=== PATIENT | female | born 1975 ===

== ENCOUNTER → 2020-02-26 12:18 | Outpatient (BNVA) | payer MEDICAID, SELFPAY | PROVIDERS: PCP Pediatrics; Visit Provider Surgery | DX: E66.01 Morbid (severe) obesity due to excess calories (principal); Z68.41 Body mass index [BMI] 40.0-44.9, adult | CPT/HCPCS: 99212 ==

== ENCOUNTER → 2020-03-18 13:28 | Outpatient (BNVA) | payer MEDICAID, SELFPAY | PROVIDERS: PCP Physician Assistant; Visit Provider Surgery | DX: E66.01 Morbid (severe) obesity due to excess calories (principal); Z68.41 Body mass index [BMI] 40.0-44.9, adult | CPT/HCPCS: 99212 ==

== ENCOUNTER → 2020-04-11 15:32 | Outpatient (BNVA) | payer MEDICAID, SELFPAY | PROVIDERS: PCP Physician Assistant; Visit Provider Surgery | DX: E66.01 Morbid (severe) obesity due to excess calories (principal); Z68.41 Body mass index [BMI] 40.0-44.9, adult | CPT/HCPCS: 99212 ==

== ENCOUNTER → 2020-05-17 13:53 | Outpatient (BNVA) | payer MEDICAID, SELFPAY | PROVIDERS: PCP Physician Assistant; Visit Provider Surgery | DX: E66.01 Morbid (severe) obesity due to excess calories (principal); Z68.41 Body mass index [BMI] 40.0-44.9, adult | CPT/HCPCS: 99212 ==

== ENCOUNTER → 2020-05-23 13:31 | Outpatient (BNVA) | payer MEDICAID, SELFPAY | PROVIDERS: PCP Physician Assistant; Visit Provider Dietitian, Registered | DX: E66.01 Morbid (severe) obesity due to excess calories (principal) | CPT/HCPCS: 97803 ==

== ENCOUNTER 2020-05-26 12:11 | Outpatient (REF) | payer MEDICAID, SELFPAY ==
[2020-05-26 13:17] LABS: MANUAL DIFF FLAG NO
[2020-05-26 13:24] LABS: Basophils Percent Auto 0.3 % (0-2); Eosinophils Absolute Auto 0.1 X10*3/uL (0.0-0.4); Eosinophils Percent Auto 0.9 % (0-4); Hematocrit 40.7 % (37-47); Imm Gran Abs Auto 0.02 X10*3/uL (0.00-0.03); Imm Gran Pct Auto 0.3 % (0.0-0.4); Lymphocytes Absolute Auto 1.5 X10*3/uL (1.2-4.9); Lymphocytes Percent Auto 22.3 % (20-40); Mean Corpuscular HGB Conc 31.9 g/dl (31.0-35.0); Mean Corpuscular Hemoglobin 26.4 pg (27.0-33.0); Mean Corpuscular Volume 82.6 fL (80-98); Mean Platelet Volume 10.3 fL (9.4-12.3); Monocytes Absolute Auto 0.4 X10*3/uL (0.1-1.2); Monocytes Percent Auto 6.6 % (2-11); Neutrophils Absolute Auto 4.5 X10*3/uL (2.0-8.3); Neutrophils Percent Auto 69.6 % (45-73); Platelet Count 341 X10*3/uL (160-400); Red Blood Count 4.93 X10*6/uL (4.20-5.50); Red Cell Distribution Width 14.2 % (11.0-16.0); White Blood Count 6.5 X10*3/uL (4.8-10.8)
[2020-05-26 13:37] LABS: Alanine Aminotransferase 29 U/L (0-31); Albumin Level 3.9 g/dL (3.5-5.0); Alkaline Phosphatase 81 U/L (39-117); Anion Gap 12 (12-20); Aspartate Amino Transferase 20 U/L (5-31); Bilirubin Total 0.3 mg/dL (0.0-1.0); Blood Urea Nitrogen 9 mg/dL (9-16); Calcium 8.8 mg/dL (8.4-10.2); Carbon Dioxide 26 mmol/L (22-29); Chloride 105 mmol/L (96-108); Cholesterol 121 mg/dL; Estimated Average Glucose 100 mg/dL; Estimated Glomerular Filt Rate > 60; Glucose Fasting 105 mg/dL (60-99); HDL Cholesterol 41 mg/dL; Hemoglobin A1c % 5.1 %; Iron 41 mcg/dL (30-160); LDL Cholesterol Calculated 71 mg/dl; Percent Iron Saturation 11 % (15-50); Sodium 139 mmol/L (135-145); Total Iron Binding Capacity 366 mcg/dL (228-428); Total Protein 7.2 g/dL (6.5-8.0); Triglycerides 49 mg/dL; Unsaturated Iron Binding 325 ug/dL
[2020-05-26 14:00] LABS: Thyroid Stimulating Hormone 0.28 uIU/mL (0.32-4.0); Vitamin D 25-OH Total 20.8 ng/mL (>30)
[2020-05-26 14:05] LABS: Vitamin B12 682 pg/mL (200-900)
[2020-05-27 12:46] LABS: Calcium (PTHI) 8.7 mg/dL (8.6-10.2); PTHI 65 pg/mL (14-64)
[2020-05-30 17:01] LABS: Zinc 72 mcg/dL (60-130)
[2020-05-31 10:32] LABS: Vitamin A 38 mcg/dL (38-98)
[2020-06-01 17:22] LABS: Vitamin B1 <6 nmol/L (8-30)
== END 2020-05-26 12:12 | disposition home or self-care (01) ==
LOC: HO.LAB 12:11
PROVIDERS: PCP Physician Assistant; Visit Provider Surgery
DX: K91.2 Postsurgical malabsorption, not elsewhere classified (principal); Z90.3 Acquired absence of stomach [part of]
CPT/HCPCS: 36415; 80053; 80061; 82306; 82607; 83036; 83540; 83970; 84425; 84443; 84590; 84630; 85025; 86140

== ENCOUNTER 2020-06-21 11:38 | Outpatient (REF) | payer MEDICAID, SELFPAY ==
--- NOTE | ~2020-06-21 | MM_ITS ---
EXAMINATION: MM SCREENING DIGITAL BREAST TOMOSYNTHESIS, BILATERAL CLINICAL INFORMATION: Screening. Asymptomatic. Prior history reduction mammoplasty 2005. The lifetime risk of breast cancer based on the Tyrer-Cuzick Model is 10%. COMPARISON: Mammography: 04/22/2019, 04/18/2018, 06/30/2015 TECHNIQUE: Digital breast tomosynthesis is performed in both the craniocaudal and mediolateral oblique views along with computer-aided detection (CAD). Synthesized 2D images are generated from the tomosynthesis. FINDINGS: There are scattered areas of fibroglandular density (ACR BI-RADS breast composition Category b). Parenchymal pattern is similar to prior exams. There is minor scarring and shifting fibroglandular tissue related to positioning, similar to prior studies. No developing density or interval mass or architectural abnormality. There are scattered benign predominantly anterior round and dermal calcifications again seen. No significant changes from prior studies. MM/MM tomosynthesis screening BI IMPRESSION: No significant changes from prior exams. ASSESSMENT: BI-RADS 2: Benign RECOMMENDATION: Routine annual mammography screening. This patient's information was entered into a reminder system with a target due date for their next mammogram.
== END 2020-06-21 11:39 | disposition home or self-care (01) ==
LOC: HO.MAMMO 11:38
PROVIDERS: Visit Provider Physician Assistant
DX: Z12.31 Encounter for screening mammogram for malignant neoplasm of breast (principal)
CPT/HCPCS: 77063; 77067

== ENCOUNTER → 2020-06-23 14:27 | Outpatient (BNVA) | payer MEDICAID, SELFPAY | PROVIDERS: PCP Physician Assistant; Visit Provider Physician Assistant ==

== ENCOUNTER → 2020-06-24 13:37 | Outpatient (BNVA) | payer MEDICAID, SELFPAY | PROVIDERS: PCP Physician Assistant; Visit Provider Physician Assistant ==

== ENCOUNTER → 2020-06-28 10:20 | Outpatient (BNVA) | payer MEDICAID, SELFPAY | PROVIDERS: PCP Physician Assistant; Visit Provider Surgery | DX: E66.01 Morbid (severe) obesity due to excess calories (principal) | CPT/HCPCS: 99212 ==

== ENCOUNTER 2020-07-06 09:25 | Inpatient (IN) | payer MEDICAID, SELFPAY ==
--- NOTE | 2020-06-28 11:30 | ECG_ITS ---
Test Reason : R06.02 - Shortness of breath Blood Pressure : / mmHG Vent. Rate : 070 BPM Atrial Rate : 070 BPM P-R Int : 116 ms QRS Dur : 074 ms QT Int : 388 ms P-R-T Axes : 023 054 028 degrees QTc Int : 419 ms Normal sinus rhythm Normal ECG When compared with ECG of 13-JUL-2019 17:45, No significant change was found Referred By: Linda Mitchell Electronically Signed By:KRISTIE DALY MD
[2020-06-28 12:12] LABS: MANUAL DIFF FLAG NO
[2020-06-28 12:15] LABS: Basophils Percent Auto 0.5 % (0-2); Eosinophils Absolute Auto 0.1 X10*3/uL (0.0-0.4); Eosinophils Percent Auto 0.9 % (0-4); Hematocrit 41.8 % (37-47); Hemoglobin 13.4 g/dl (12.0-16.0); Imm Gran Abs Auto 0.02 X10*3/uL (0.00-0.03); Imm Gran Pct Auto 0.3 % (0.0-0.4); Lymphocytes Absolute Auto 1.5 X10*3/uL (1.2-4.9); Lymphocytes Percent Auto 19.9 % (20-40); Mean Corpuscular HGB Conc 32.1 g/dl (31.0-35.0); Mean Corpuscular Volume 81.2 fL (80-98); Mean Platelet Volume 10.3 fL (9.4-12.3); Monocytes Absolute Auto 0.5 X10*3/uL (0.1-1.2); Monocytes Percent Auto 7.1 % (2-11); Neutrophils Absolute Auto 5.4 X10*3/uL (2.0-8.3); Neutrophils Percent Auto 71.3 % (45-73); Platelet Count 345 X10*3/uL (160-400); Red Blood Count 5.15 X10*6/uL (4.20-5.50); Red Cell Distribution Width 14.7 % (11.0-16.0); White Blood Count 7.6 X10*3/uL (4.8-10.8)
[2020-06-28 12:21] LABS: INTERNATIONAL NORM RATIO 0.9 (0.9-1.1); Prothrombin Time 11.1 SEC (10.8-13.0)
[2020-06-28 12:23] LABS: Partial Thromboplastin Time 34.1 SEC (24.1-38.0)
[2020-06-28 12:37] LABS: Anion Gap 13 (12-20); Blood Urea Nitrogen 11 mg/dL (9-16); Carbon Dioxide 26 mmol/L (22-29); Chloride 104 mmol/L (96-108); Estimated Glomerular Filt Rate > 60; Glucose Random 97 mg/dL (60-115); Potassium 4.2 mmol/L (3.3-5.1); Sodium 139 mmol/L (135-145)
[2020-06-28 12:59] LABS: Vitamin D 25-OH Total 45.9 ng/mL (>30)
[2020-06-29 10:44] VITALS: BMI 42.0
[2020-07-03 11:56] LABS: Vitamin B1 43 nmol/L (8-30)
--- NOTE | 2020-07-05 09:20 | HO.ANESPROP2 ---
Documented by User: Darcy Miles 07/05/20 09:21 HPI - Anesthesia Eval Consult details Narrative: 45yo F for Gastrectomy Sleeve PMFSH Active Problems Active Problems: All Active Problems (Updated 06/28/20 @ 10:49 by Linda Mitchell MD) Morbid obesity due to excess calories (Acute) Body mass index (BMI) of 40.1 to 44.9 in adult (Acute) Preoperative examination (Acute) Vitamin D deficiency (Acute) Vitamin B1 deficiency (Acute) Shortness of breath (Acute) Past Medical History Medical History Anxiety Arthritis Back pain Binge eating disorder KENISHA I (cervical intraepithelial neoplasia I) Depression Insomnia Migraines Ovarian cyst Scoliosis Family History Family History Father Colon cancer Mother No problems noted. Brother Obesity Brother Obesity Son No problems noted. Daughter No problems noted. Daughter No problems noted. Surgical History Surgical History History of arthroscopy of both knees History of cervical LEEP biopsy affecting care of mother, antepartum Hx of breast reduction, elective Hx of tubal ligation Social History Social History Household Members: Family Housing: Apartment Are you a primary manager progressive care to a significant other at home: No Do you presently have visiting nurse or other home services: No Use of substances other than those prescribed or required for medical reasons: No Have you been hit, kicked, punched, or otherwise hurt by someone within the past year? If so, by whom?: No Are you DNR?: No Advance Directives: No Advance Directives Information Provided: No Recently lost weight without trying: No Eating poorly because of decreased appetite: No Nutrition Risks: No Nutritional Risk Patient : No FDLMP: 06/27/20 : No Poor oral hygiene: No Meds Allergies Allergy/AdvReac Type Severity Reaction Status Date / Time No Known Allergies Allergy Verified 07/06/20 09:12 Home Medications Medication Instructions Recorded Confirmed Last Taken Type iron, carbonyl 15 mg chewable 15 mg PO DAILY 01/28/20 06/29/20 Unknown History tablet meloxicam 15 mg tablet 15 mg PO DAILY PRN 01/28/20 06/29/20 Unknown History sertraline 100 mg tablet 100 mg PO DAILY 01/28/20 06/29/20 Unknown History mecobalamin (vitamin B12) 1,000 1,000 mcg PO DAILY 03/18/20 06/29/20 Unknown History mcg chewable tablet quetiapine 25 mg tablet 25 mg PO DAILY 05/17/20 06/29/20 Unknown History Exam Exam Date and Time: July 05, 2020 0920 Height,Weight and Vital Signs: Height 5 ft 10 in Weight 132.903 kg Pertinent Lab Results Pertinent Lab Results: Laboratory Tests 06/28/20 06/28/20 06/28/20 11:35 11:37 11:37 WBC 7.6 RBC 5.15 Hgb 13.4 Hct 41.8 MCV 81.2 MCH 26.0 L MCHC 32.1 RDW 14.7 Plt Count 345 MPV 10.3 Immature Gran % (Auto) 0.3 Neut % (Auto) 71.3 Lymph % (Auto) 19.9 L [place] % (Auto) 7.1 Eos % (Auto) 0.9 Baso % (Auto) 0.5 Lymph # (Auto) 1.5 [place] # (Auto) 0.5 Eos # (Auto) 0.1 Baso # (Auto) 0.0 Abs Immat Gran (auto) 0.02 Absolute Neuts (auto) 5.4 Absolute Nucleated RBC 0.000 Nucleated RBC % (auto) 0.0 PT 11.1 INR 0.9 APTT 34.1 Sodium Potassium Chloride Carbon Dioxide Anion Gap BUN Creatinine Estim Creat Clear Calc Estimated GFR Random Glucose Calcium Albumin Vitamin B1 43 H 25-OH Vitamin D Total Urine Color Urine Appearance Urine pH Ur Specific [place] Urine Protein Urine Glucose (UA) Urine Ketones Urine Blood Urine Nitrite Ur Leukocyte Esterase Urine Test Blood Type Antibody Screen 06/28/20 06/28/20 06/28/20 11:37 11:37 Unknown WBC RBC Hgb Hct MCV MCH MCHC RDW Plt Count MPV Immature Gran % (Auto) Neut % (Auto) Lymph % (Auto) [place] % (Auto) Eos % (Auto) Baso % (Auto) Lymph # (Auto) [place] # (Auto) Eos # (Auto) Baso # (Auto) Abs Immat Gran (auto) Absolute Neuts (auto) Absolute Nucleated RBC Nucleated RBC % (auto) PT INR APTT Sodium 139 Potassium 4.2 Chloride 104 Carbon Dioxide 26 Anion Gap 13 BUN 11 Creatinine 0.66 Estim Creat Clear Calc TNP Estimated GFR > 60 Random Glucose 97 Calcium 9.0 Albumin 4.0 Vitamin B1 25-OH Vitamin D Total 45.9 Urine Color Cancelled Urine Appearance Cancelled Urine pH Cancelled Ur Specific [place] Cancelled Urine Protein Cancelled Urine Glucose (UA) Cancelled Urine Ketones Cancelled Urine Blood Cancelled Urine Nitrite Cancelled Ur Leukocyte Esterase Cancelled Urine Test Blood Type O Positive Antibody Screen NEGATIVE 06/28/20 Unknown WBC RBC Hgb Hct MCV MCH MCHC RDW Plt Count MPV Immature Gran % (Auto) Neut % (Auto) Lymph % (Auto) [place] % (Auto) Eos % (Auto) Baso % (Auto) Lymph # (Auto) [place] # (Auto) Eos # (Auto) Baso # (Auto) Abs Immat Gran (auto) Absolute Neuts (auto) Absolute Nucleated RBC Nucleated RBC % (auto) PT INR APTT Sodium Potassium Chloride Carbon Dioxide Anion Gap BUN Creatinine Estim Creat Clear Calc Estimated GFR Random Glucose Calcium Albumin Vitamin B1 25-OH Vitamin D Total Urine Color Urine Appearance Urine pH Ur Specific [place] Urine Protein Urine Glucose (UA) Urine Ketones Urine Blood Urine Nitrite Ur Leukocyte Esterase Urine Test Cancelled Blood Type Antibody Screen Narrative Narrative: EKG 06/2020 Vent. Rate : 070 BPM Atrial Rate : 070 BPM P-R Int : 116 ms QRS Dur : 074 ms QT Int : 388 ms P-R-T Axes : 023 054 028 degrees QTc Int : 419 ms Normal sinus rhythm Normal ECG When compared with ECG of 13-JUL-2019 17:45, No significant change was found Assessment and Plan Assessment Anesthesia Assessment: Chart Reviewed Documented by User: Isaiah Weinstein 07/06/20 10:22 [facility] Past Medical History Medical History Anxiety Arthritis Back pain Binge eating disorder KENISHA I (cervical intraepithelial neoplasia I) Depression Insomnia Migraines Ovarian cyst Scoliosis Family History Family History Father Colon cancer Mother No problems noted. Brother Obesity Brother Obesity Son No problems noted. Daughter No problems noted. Daughter No problems noted. Surgical History Surgical History History of arthroscopy of both knees History of cervical LEEP biopsy affecting care of mother, antepartum Hx of breast reduction, elective Hx of tubal ligation Social History Social History Household Members: Family Housing: Apartment Are you a primary manager progressive care to a significant other at home: No Do you presently have visiting nurse or other home services: No Use of substances other than those prescribed or required for medical reasons: No Have you been hit, kicked, punched, or otherwise hurt by someone within the past year? If so, by whom?: No Are you DNR?: No Advance Directives: No Advance Directives Information Provided: No Recently lost weight without trying: No Eating poorly because of decreased appetite: No Nutrition Risks: No Nutritional Risk Patient : No FDLMP: 06/27/20 : No Poor oral hygiene: No Meds Allergies Allergy/AdvReac Type Severity Reaction Status Date / Time No Known Allergies Allergy Verified 07/06/20 09:12 Home Medications Medication Instructions Recorded Confirmed Last Taken Type iron, carbonyl 15 mg chewable 15 mg PO DAILY 01/28/20 06/29/20 Unknown History tablet meloxicam 15 mg tablet 15 mg PO DAILY PRN 01/28/20 06/29/20 Unknown History sertraline 100 mg tablet 100 mg PO DAILY 01/28/20 06/29/20 Unknown History mecobalamin (vitamin B12) 1,000 1,000 mcg PO DAILY 03/18/20 06/29/20 Unknown History mcg chewable tablet quetiapine 25 mg tablet 25 mg PO DAILY 05/17/20 06/29/20 Unknown History Exam Airway Mallampati Class: III TM Dist: >3cm Neck ROM: Full
--- NOTE | 2020-07-05 11:14 | MHC.SHP ---
Pre-Procedural Eval Section B Chief Complaint: obesity Allergies: Allergies Allergy/AdvReac Type Severity Reaction Status Date / Time No Known Allergies Allergy Verified 06/29/20 09:31 Plan I have reviewed the history and physical and performed a pertinent physical examination on my patient. No changes have occurred unless specified.
[2020-07-06] VITALS (11 sets, daily range): BP systolic 132–170; BP diastolic 71–96; PULSE 59–72; RESP 14–20; TEMP 35.9–36.3; O2SAT 92–98
[2020-07-06] MEDS: Lactated Ringers 1,000 ML 100 ML IVCONT (09:38)
[2020-07-06 09:40] LABS: COVID-19 Test Negative (Negative)
--- NOTE | 2020-07-06 11:36 | PC.NURSE ---
pt received personal call while in preop. has uti and an rn [facility] called to tell her and send rx for bactrim to her pharmacy. nacho made aware and ok'd to proceed.
[2020-07-06] MEDS: ondansetron HCL 4 MG/2 ML VIAL IVPUSH ×2 (14:14→23:18)
--- NOTE | 2020-07-06 14:19 | PM.OP ---
Brief Operative Note Date of Service: 07/06/20 Pre-op diagnosis: Morbid obesity BMI 42.4 Post-op diagnosis: other (Same and hiatal hernia) Procedure: Laparoscopic sleeve gastrectomy, hiatal hernia repair, intraoperative endoscopy, and Betty block Implants: Small laparoscopic clips on the staple line Surgeon: Linda Mitchell MD Anesthesia: GETA Was an Bead Preparer used for this Procedure?: Yes Bead Preparer: Noemí Mejia Estimated blood loss (mL): 10 Pathology: other (Partial gastrectomy) Condition: stable Disposition: PACU
--- NOTE | 2020-07-06 14:21 | P.OP_ITS ---
Operative Note Operative Note Date of Service: 07/06/20 Narrative: Patient was brought into the operating room and placed on the operating room table in the supine position. General anesthesia was induced. Normal DVT prophylaxis was instituted and the patient received 2 grams of cefotetan preoperatively. The abdomen was then prepped and draped in the normal sterile fashion. A safety time-out was performed. A mixture of 1% lidocaine with epinephrine and ?% Marcaine plain was used to an esthetize the planned incision site in the left upper quadrant. A #11 scalpel was used to make a 5 mm left upper quadrant transverse incision through which a veress needle was placed. Three pops were heard going through the fascia. A saline drop test was used to confirm that the veress needle was intraabdominal. An optiview technique was then used to place a 5mm port in the left upper quadrant. A 5 mm 30 degree laproscope was then placed through this port and the abdominal cavity was surveyed and was normal. The patient was placed in reverse Trendelenburg positioning. A peña liver retractor was then placed in the subxyphoid position and it was used to hold up the left lobe of the liver to the abdominal wall. This was secured to the bed using the liver retractor card. A SHU block was then performed for pain control on the right side of the abdomen. A 5 mm port was placed in the right upper quadrant near the falciform ligament. A 12 mm port was then placed in the mid epigastrium. One additional 5 mm port was placed in the left upper quadrant just to the left of the placement of the first port. I then performed a SHU block on the left side of the abdomen. I then removed the epigastric fat pad; there was a small anterior hiatal hernia noted. I reapproximated the left and right crura with a total of 2 stitches of 2-0 ethibond and a laparoscopic knot pusher. There was no residual hiatal hernia. I then opened up the angle of His. We then gained entry into the lesser sac about 4-5 cm from the pylorus. I had anesthesia place a 34 Indonesian orogastric tube into the distal antrum to use as a sizing tool for gastric pouch size. I divided the short gastric vessels up to the angle of His. We then started the creation of the gastric pouch by firing a 60 mm purple load endostapler up the stomach about 4-5 cm from the pylorus. We completed the creation of the gastric pouch using a total of 4 firings of a 60 mm and 1 firing of a 45 mm purple load stapler. I did place some small clips on the staple line to ensure hemostasis. We had anesthesia remove the orogastric tube, then we clamped across the distal antrum using a fired 60 mm endostapler. We flattened the patient and then instilled normal saline surrounding the newly created staple line. I then performed an on-table endoscopy. I passed the gastroscopy into the posterior oropharynx and down the esophagus evaluating the esophageal mucosa which was normal. There was no evidence of hiatal hernia. I passed the gastroscope into the gastric pouch and insufflated the gastric pouch. There was healthy pink mucosa and no evidence of active bleeding. There was no evidence of leak on laparoscopy. I desufflated the gastric pouch and removed the endoscope. I removed the endostapler from the abdomen and suctioned the fluid from the left upper quadrant. I then removed the partial gastrectomy specimen through the epigastric 12 mm port site. I reapproximated the 12 mm port using a 0 maxon suture with a laparoscopic suture passer. I instilled local anesthetic into the fascial closure site and tied the suture down at a pressure of 8-10 mm of Hg. There was no residual fascial defect. We removed the liver retractor and the left upper quadrant 5 mm ports under direct visualization. There was no evidence of any active bleeding. I desufflated the abdomen through the last remaining port and removed the laparoscope and 5 mm port. We reapproximated all incisions with a 4-0 monocryl subcuticular stitch. We cleaned and dried the abdominal skin and applied dermabond skin glue. All count were correct at the end of the case. The patient was awake and in stable condition prior to extubation and transfer to the recovery room.
[2020-07-06] MEDS: Lactated Ringers 1,000 ML 125 ML IVCONT ×2 (16:01→23:31)
[2020-07-06] MEDS: 0.9 % Sodium Chloride Flush 3 ML SYRINGE IVFLUSH ×2 (16:02→20:42)
[2020-07-06] MEDS: Metoclopramide HCl 10 MG/2 ML VIAL IVPUSH (17:58)
[2020-07-06] MEDS: HYDROmorphone HCl 0.5 MG/0.5 ML SYRINGE 0.25 MG IVPUSH ×2 (17:59→23:47)
[2020-07-06] MEDS: Famotidine/PF 20 MG/2 ML VIAL IVPUSH (20:42)
--- NOTE | 2020-07-06 21:20 | PM.PNGS ---
Subjective Subjective Date of Service: 07/07/20 Interval history: POD #1: Patient is doing well. Has been ambulating, using the incentive spirometer, and tolerating po liquids. No nausea or abdominal pain. Has some mild incisional pain. Physical Exam Vital Signs: Vital Signs: Last Vital Signs Temp 97.1 F 07/06/20 19:59 Pulse 60 07/06/20 19:59 Resp 14 07/06/20 19:59 BP 149/79 H 07/06/20 19:59 Pulse Ox 92 07/06/20 19:59 Body Mass Index 42.0 Const: General: cooperative, comfortable, no acute distress, alert and awake Nutritional Appearance: obese GI: Inspection: Yes normal to inspection, Yes incision (normal, slight erythema at site of surgical glue, no tenderness/warmth/drai) and Yes obesity Extrem: Right lower extremity: lower leg Details: no tenderness; no edema Left lower extremity: lower leg Details: no tenderness; no edema Progress Note: A&P Assessment and plan (1) Morbid obesity due to excess calories: Status: Acute (2) History of repair of hiatal hernia: Status: Acute (3) Hiatal hernia: Status: Acute (4) S/P laparoscopic sleeve gastrectomy: Status: Acute (5) Intestinal malabsorption following gastrectomy: Status: Acute Assessment and Plan: POD #1: Patient is doing well and will be discharged home today. All the discharge instructions were reviewed with the patient and given in writing. Patient will follow up as scheduled in 2 weeks. Fall Risk Details Current Medications: Current Medications Generic Name Dose Route Start Last Admin Trade Name Freq PRN Reason Stop Dose Admin Famotidine 20 mg 07/06/20 21:00 07/06/20 20:42 Famotidine/Pf 20 Mg/2 Ml Vial IVPUSH 20 mg BID AMANDEEP Administration Hydromorphone HCl 0.25 mg 07/06/20 15:24 07/06/20 17:59 Hydromorphone Hcl 0.5 Mg/0.5 Ml Syringe IVPUSH 0.25 mg Q4H PRN Administration Pain, Severe (Pain Scale 7-10) Lactated Ringer's 1,000 mls @ 125 mls/hr 07/06/20 15:24 07/06/20 16:01 Lr IVCONT 125 mls/hr .Q8H AMANDEEP Administration Cefotetan Disodium 2 gm/ 50 mls @ 100 mls/hr 07/07/20 00:00 Sodium Chloride IV 07/07/20 00:29 POSTOP ONE Acetaminophen 1,000 mg in 100 mls @ 16.7 mls/hr 07/06/20 18:00 07/06/20 17:59 Ofirmev IV 16.7 mls/hr .Q6H AMANDEEP Administration Metoclopramide HCl 10 mg 07/06/20 15:24 07/06/20 17:58 Metoclopramide Hcl 10 Mg/2 Ml Vial IVPUSH 10 mg Q6H PRN Administration Nausea Ondansetron HCl 4 mg 07/06/20 15:24 07/06/20 15:33 Ondansetron Hcl 4 Mg/2 Ml Vial IVPUSH Not Given Q8H AMANDEEP Sodium Chloride 3 ml 07/06/20 16:00 07/06/20 20:42 0.9 % Sodium Chloride Flush 3 Ml Syringe IVFLUSH 3 ml QSHIFT AMANDEEP Administration Time Spent With Patient Time: Total time spent is greater than 50% in coordination of care (as documented) at patient's floor/unit and/or counseling patient: Time with patient: 25 - 35 minutes Procedures Date of Service Date of Service: 07/07/20
--- NOTE | 2020-07-06 21:23 | PM.DS ---
DS: Providers Provider Date of Service: 07/07/20 Date of admission: 07/06/20 09:25 Primary care physician: LILLIANA Thrasher DS: Diagnosis Discharge Diagnosis (1) Morbid obesity due to excess calories: Status: Acute (2) History of repair of hiatal hernia: Status: Acute (3) Hiatal hernia: Status: Acute (4) S/P laparoscopic sleeve gastrectomy: Status: Acute (5) Intestinal malabsorption following gastrectomy: Status: Acute DS: Medications Discharge Medications Home Medications: Home Medications Medication Instructions Recorded Confirmed iron, carbonyl 15 mg chewable 15 mg PO DAILY 01/28/20 06/29/20 tablet sertraline 100 mg tablet 100 mg PO DAILY 01/28/20 06/29/20 mecobalamin (vitamin B12) 1,000 1,000 mcg PO DAILY 03/18/20 06/29/20 mcg chewable tablet quetiapine 25 mg tablet 25 mg PO DAILY 05/17/20 06/29/20 Previous Rx's Medication Instructions Recorded acetaminophen 500 mg tablet 1,000 mg PO Q6H PRN #30 tab 06/28/20 docusate sodium 100 mg capsule 100 mg PO BID #30 cap 06/28/20 famotidine 20 mg tablet 20 mg PO DAILY #30 tab 06/28/20 ondansetron HCl 4 mg tablet 4 mg PO Q6H PRN #30 tab 06/28/20 simethicone 80 mg chewable tablet 80 mg PO TID-QID PRN #30 tab 06/28/20 DS: Summary Time Spent with Patient Time attestation: Total time spent providing and/or coordinating discharge services: Discharge coordination time: Greater than 30 minutes Quality: Stroke Does the patient have a stroke diagnosis?: No Physical Exam Vital Signs: Vital Signs: Last Vital Signs Temp 97.1 F 07/06/20 19:59 Pulse 60 07/06/20 19:59 Resp 14 07/06/20 19:59 BP 149/79 H 07/06/20 19:59 Pulse Ox 92 07/06/20 19:59 Body Mass Index 42.0 DS: Data Data Completed and Pending Pending studies at discharge: Pending at discharge 07/06/20 13:31 Surgical [PTH] Routine Labs on day of discharge: Laboratory Results - last 24 hr 07/06/20 09:05 COVID-19 (JONNY) Negative COVID-19 Clin Com See Note Discharge Plan Discharge Patient Disposition: Home, Self-Care Discharge Diagnosis: obesity s/p LSG Referrals: Gallo Pearson PA [Primary Care Provider] - 1 Week Discharge Medications: Continued Iron Chews 15 mg tablet,chewable 15 mg PO DAILY RF: 0 sertraline 100 mg tablet 100 mg PO DAILY RF: 0 mecobalamin (vitamin B12) 1,000 mcg tablet,chewable 1,000 mcg PO DAILY RF: 0 quetiapine [Seroquel] 25 mg tablet 25 mg PO DAILY RF: 0 acetaminophen [Tylenol Extra Strength] 500 mg tablet 1,000 mg PO Q6H PRN (Reason: pain) Qty: 30 RF: 1 famotidine [Pepcid AC] 20 mg tablet 20 mg PO DAILY Qty: 30 RF: 1 simethicone [Gas Relief (simethicone)] 80 mg tablet,chewable 80 mg PO TID-QID PRN (Reason: abdominal distention) Qty: 30 RF: 1 ondansetron HCl [Zofran] 4 mg tablet 4 mg PO Q6H PRN (Reason: nausea and vomiting) Qty: 30 RF: 1 docusate sodium [Colace] 100 mg capsule 100 mg PO BID Qty: 30 RF: 1 Discontinued meloxicam 15 mg tablet 15 mg PO DAILY PRN (Reason: pain) RF: 0 Discharge Orders: Discharge Order (Routine); Ordered 07/07/20 Ordered By: Noemí Mejia Diet: other Activity on Discharge: No heavy lifting Stand Alone Forms: Patient Portal Discharge page Activity Restrictions/Additional Instructions: Discharge Instructions 1. Please call your doctor or come back to the emergency room should any new symptoms arise. 2. You will receive a courtesy call from [facility] 24-48 hours after discharge. 3. Activity: abstain from alcohol, practice limited stair climbing, no bending, no driving, no exercise, no illicit substances, no lifting, no sex, no tub bath, no work. 4. Diet: continue stage 3 protein shakes until your [address] Mitchell. 5. Dressing Change/Wound Care: Your incision is covered by surgical glue. If the area is tender, you may apply an ice pack for short intervals (no more than 20 minutes on, followed by at least 20 minutes off). Do not apply heat. Do not use creams, lotions, or topical antibiotics unless instructed to do so by your surgeon. These can cause infection or allergic reaction. 6. Call your doctor if: - Your temperature exceeds 101.5 F - You experience excessive pain or swelling - You have an unexpected reaction to medication - You have excessive bleeding - You experience continued vomiting/nausea - Your incision begins to separate - Your incision shows signs of infection such as increased redness, swelling, excessive pain, heat, or drainage (light blood or clear fluid is normal) 7. General instructions: - No lifting greater than 5 lbs for the next 4 weeks. - No driving within 24 hours of taking narcotic pain medications. - If you do not move your bowels in the next 2 days, please take milk of magnesia over the counter. Please follow the post op diet and do not advance your diet until you are seen in the office in about 2 weeks. - Please walk around your home every hour or two to prevent blood clots from forming in your legs. You do not need to wake from sleeping to walk. - Please sleep in a bed or couch to prevent kinking at the hips and knees. - Please take your incentive spirometer (your lung academic program specialist) home with you and use it for the next few days to prevent pneumonias. - You may shower, no hot tubs, baths or swimming pools. - Please call the office with any questions or concerns such as increasing abdominal pain, fever, chills, shortness of breath, chest pain, leg pain or swelling, or redness or drainage from your incisions. - Please stay on stage 3 diet which includes sugar free clear liquids such as ice pops and jello and broth and crystal light. Avoid all carbonation. Please drink 3 protein shakes with at least 25-30 grams of protein daily or 3 of the Celebrate 4:1 shakes which can be purchased in our office. The Celebrate shakes have all of the bariatric vitamins you need if you consume these shakes. If you are drinking other protein shakes, you will need to purchase the Celebrate multivitamins and calcium that we provide in the office (they will provide all the vitamins you need). Please make sure you are consuming at least 40-60 ounces of water in addition to your 3 protein shakes daily. 8. Do not hesitate to contact the office with any questions at . Discharge Summary Date of Service: 07/07/20 Pre-op diagnosis: Morbid obesity BMI 42.4 Post-op diagnosis: other (Same and hiatal hernia) Procedure: Laparoscopic sleeve gastrectomy, hiatal hernia repair, intraoperative endoscopy, and Betty block Discharge Medications: 1. Simethicone 80mg tablet chewable (Si tablet every 6 hours orally for 7 days, #28, 1 RF) q4h prn gas 2. Acetaminophen 500 mg tablet (Si tablets as needed every 6 hours orally for 30 days, #240, 0 RF) 3. Ondansetron 4 mg tablet disintegrating (Si tablet every 6 hours orally for 7 days, #28, 1 RF) 4. Colace 100 mg capsule (Si capsule twice a day for 30 days, #60, 2 RF) 5. Pepcid 20 mg chewable tablet (Si tablet twice a day for 30 days, #60, 3 RF) Discharge Instructions: The patient should continue on the stage III bariatric diet, which includes 3 protein shakes of at least 20-30g of protein on a daily basis. The patient was encouraged to avoid drinking liquids with her protein shakes. They should wait 30-45 minutes in between her meals and drinking water. She should drink at least 40-60 ounces of water on a daily basis. They should ambulate while at home to avoid any blood clots in her lower extremities. They should call with any questions or concerns such as increase in abdominal pain, persistent nausea, vomiting, redness and drainage from her incisions, fever, chills, shortness of breast, or chest pain beyond what is normal for her. The patient should avoid all heavy lifting greater than 5 pounds for the next 4 weeks. The patient is already scheduled to follow up with me in 2 weeks time, but should call the office with any questions prior to that follow up appointment. The patient should not advance their diet until they are seen in the office for the 2 week appointment. Hospital Course: The patient was admitted after undergoing LSG and hiatal hernia repair. They were started on stage II (1 oz of fluid every 15 minutes) on POD #0. The next morning they were evaluated and started on stage III diet (protein shakes). All labs were within normal limits. On post-operative day #1 she was feeling better, nausea and epigastric pain improved and they were tolerating stage III bariatric diet well. The patient was discharged home. Discharge Disposition: Home. Care Plan Goals: weight loss Health Concerns: obesity Plan of Treatment: s/p LSG Assessment: 1 day s//p LSG, discharged home
[2020-07-06] MEDS: cefoTEtan disodium 2 GM in 0.9 % Sodium Chloride 50 ML IV (23:30)
[2020-07-07] VITALS: BP 156/78; PULSE 56; RESP 16; TEMP 36.3; O2SAT 99
[2020-07-07 04:00] VITALS: BP 138/77; PULSE 52; RESP 16; TEMP 37.1; O2SAT 95
[2020-07-07] MEDS: Metoclopramide HCl 10 MG/2 ML VIAL IVPUSH ×2 (05:10→10:51)
[2020-07-07 06:26] LABS: MANUAL DIFF FLAG NO
[2020-07-07 06:50] LABS: Basophils Percent Auto 0.1 % (0-2); Hematocrit 36.6 % (37-47); Hemoglobin 11.9 g/dl (12.0-16.0); Imm Gran Abs Auto 0.06 X10*3/uL (0.00-0.03); Imm Gran Pct Auto 0.5 % (0.0-0.4); Lymphocytes Absolute Auto 1.6 X10*3/uL (1.2-4.9); Mean Corpuscular HGB Conc 32.5 g/dl (31.0-35.0); Mean Corpuscular Hemoglobin 26.6 pg (27.0-33.0); Mean Corpuscular Volume 81.7 fL (80-98); Mean Platelet Volume 11.3 fL (9.4-12.3); Monocytes Absolute Auto 0.6 X10*3/uL (0.1-1.2); Monocytes Percent Auto 5.4 % (2-11); Neutrophils Absolute Auto 9.1 X10*3/uL (2.0-8.3); Platelet Count 328 X10*3/uL (160-400); Red Blood Count 4.48 X10*6/uL (4.20-5.50); Red Cell Distribution Width 14.8 % (11.0-16.0); White Blood Count 11.4 X10*3/uL (4.8-10.8)
[2020-07-07 06:55] LABS: Anion Gap 12 (12-20); Blood Urea Nitrogen 7 mg/dL (9-16); Calcium 8.6 mg/dL (8.4-10.2); Carbon Dioxide 26 mmol/L (22-29); Chloride 102 mmol/L (96-108); Creatinine Clr Calc Pharmacy 154.2; Estimated Glomerular Filt Rate > 60; Glucose Random 92 mg/dL (60-115); Potassium 3.9 mmol/L (3.3-5.1); Sodium 136 mmol/L (135-145)
[2020-07-07 08:00] VITALS: BP 161/77; PULSE 55; RESP 18; TEMP 36.4; O2SAT 95
[2020-07-07] MEDS: ondansetron HCL 4 MG/2 ML VIAL IVPUSH (08:28)
[2020-07-07] MEDS: Lactated Ringers 1,000 ML 125 ML IVCONT (08:28)
[2020-07-07] MEDS: Famotidine/PF 20 MG/2 ML VIAL IVPUSH (08:28)
[2020-07-07] MEDS: HYDROmorphone HCl 0.5 MG/0.5 ML SYRINGE 0.25 MG IVPUSH (09:15)
[2020-07-07 12:00] VITALS: BP 136/76; PULSE 50; RESP 17; TEMP 36.5; O2SAT 98
--- NOTE | 2020-07-07 12:48 | MHC.CM.PN ---
nurse animal daycare provider note electronic medicAL RECORD REVIEWED ALONG WITH CASE DISCUSSED WITH STAFF NURSE MET JUJU PATIENT S/P BARIATRIC SURGERY ON 5 SHE LIVES WITH HER Fmily she has vna /no dme services in the home discharge plan home no services pcp patient to call for post hospitla dischagre follow up transportation family
--- NOTE | 2020-07-07 12:54 | HO.POSTANES ---
Post Anesthesia Evaluation Post Anesthesia Evaluation Vital Signs: Vital Signs Temp Pulse Resp BP Pulse Ox 07/07/20 12:00 97.7 F 50 17 136/76 98 07/07/20 08:00 97.6 F 55 18 161/77 H 95 07/07/20 04:00 98.7 F 52 16 138/77 95 Anesthesia: General Endotracheal-GETA Mental Status: Awake Pain Control: Satisfactory Nausea/Vomiting: None Hydration: Adequate Anesthesia-Related Issues: No Anes. Related Issues
== END 2020-07-07 13:49 | disposition home or self-care (01) | DRG 403 ==
LOC: HO.SSSA 09:33 → HO.S3 15:41
PROVIDERS: Physician Assistant; Admitting Provider Surgery; PCP Physician Assistant; Visit Provider Surgery
PROC: 0DB64Z3 Excision of Stomach, Percutaneous Endoscopic Approach, Vertical (ICD-10-PCS; CPT 43845; principal; 2020-07-06 11:10)
DX: E66.01 Morbid (severe) obesity due to excess calories (principal); F41.9 Anxiety disorder, unspecified; K44.9 Diaphragmatic hernia without obstruction or gangrene; Z68.41 Body mass index [BMI] 40.0-44.9, adult; Z20.822 Contact with and (suspected) exposure to COVID-19; Z79.899 Other long term (current) drug therapy
CPT/HCPCS: 36415; 80048; 81003; 81025; 82040; 82306; 84425; 85025; 85610; 85730; 86850; 86900; 86901; 87635; 88307; 88342; 93005; C1776; J0131; J1170; J2250; J2405; J2550; J2765; J3010

== ENCOUNTER → 2020-07-20 10:34 | Outpatient (BNVA) | payer MEDICAID, SELFPAY | PROVIDERS: PCP Physician Assistant; Visit Provider Surgery | DX: Z98.890 Other specified postprocedural states (principal); Z87.19 Personal history of other diseases of the digestive system | CPT/HCPCS: 99212 ==

== ENCOUNTER → 2020-09-08 08:18 | Outpatient (BNVA) | payer MEDICAID, SELFPAY | PROVIDERS: PCP Physician Assistant; Visit Provider Dietitian, Registered ==

== ENCOUNTER → 2020-09-15 13:01 | Outpatient (BNVA) | payer MEDICAID, SELFPAY | PROVIDERS: PCP Physician Assistant; Visit Provider Surgery | DX: Z98.84 Bariatric surgery status (principal); Z87.19 Personal history of other diseases of the digestive system | CPT/HCPCS: 99212 ==

== ENCOUNTER 2020-10-17 11:31 | Emergency (ER) | payer MEDICAID, SELFPAY ==
[2020-10-17 11:51] VITALS: BP 142/91; PULSE 93; RESP 20; TEMP 36.3; O2SAT 96; BMI 34.1
--- NOTE | 2020-10-17 14:01 | ED_ITS ---
HPI - Eye Problem General Chief complaint: Eye Problems Stated complaint: STY R EYE Time Seen by Provider: 10/17/20 14:01 Source: patient Mode of arrival: ambulatory Limitations: no limitations History of Present Illness MD chief complaint: other (boil on eyelid) Onset (ago): week(s) (1) Onset description: gradual Duration: progressively worsening Location: right eye Eye Symptoms: pain Place: home Mechanism: none Severity: moderate If Pain, Quality: aching Associated symptoms: none Treatments Prior to Arrival: other (has done compressess up to the three times a day without relief) Related Data Home Medications Medication Instructions Recorded Confirmed iron, carbonyl 15 mg chewable 15 mg PO DAILY 01/28/20 09/15/20 tablet (Iron Chews) mecobalamin (vitamin B12) 1,000 1,000 mcg PO DAILY 03/18/20 09/15/20 mcg chewable tablet quetiapine 25 mg tablet (Seroquel) 25 mg PO BEDTIME tab 07/20/20 09/15/20 Previous Rx's Medication Instructions Recorded acetaminophen 500 mg tablet 1,000 mg PO Q6H PRN #30 tab 06/28/20 (Tylenol Extra Strength) cephalexin 500 mg capsule 500 mg PO BID 7 Days #14 cap 10/17/20 erythromycin 5 mg/gram (0.5 %) eye 0.5 inch OPHTHALMIC (EYE) TID #3.5 10/17/20 ointment g Allergies Allergy/AdvReac Type Severity Reaction Status Date / Time No Known Allergies Allergy Verified 07/20/20 13:56 Review of Systems Review of Systems: Constitutional : No Fever, No Chills ENT/Mouth : No sore throat, No Rhinorrhea Eyes: No Eye Pain, No Swelling, No Redness Cardiovascular : No Chest Pain, No SOB Respiratory : No Cough, No Sputum Gastrointestinal : No Nausea, No Vomiting, No Diarrhea, No abdominal Pain Genitourinary : No Dysuria, No Hematuria Musculoskeletal : No joint pain, No Myalgias, No Joint Swelling Skin : pos Skin Lesions, positive skin rash PMFSH Past Medical History Attestation statement: The following information was validated with the patient. Medical History Anxiety Arthritis Back pain Binge eating disorder Body mass index (BMI) of 40.1 to 44.9 in adult KENISHA I (cervical intraepithelial neoplasia I) Depression Hiatal hernia Insomnia Intestinal malabsorption following gastrectomy Migraines Ovarian cyst Preoperative examination Scoliosis Shortness of breath Vitamin B1 deficiency Vitamin D deficiency Surgical History History of arthroscopy of both knees History of cervical LEEP biopsy affecting care of mother, antepartum History of repair of hiatal hernia Hx of breast reduction, elective Hx of tubal ligation S/P laparoscopic sleeve gastrectomy Family History Family History Father Colon cancer Mother No problems noted. Brother Obesity Brother Obesity Son No problems noted. Daughter No problems noted. Daughter No problems noted. Social History Social History Household Members: Family Housing: Apartment Are you a primary manager managed care to a significant other at home: No Do you presently have visiting nurse or other home services: No Alcohol intake: never Patient Tobacco Use Status: Never used Tobacco Advance Directives: No Advance Directives Information Provided: No service: No Current occupational status: employed Physical Exam Vital Signs: Vital Signs: Last Vital Signs Temp 97.3 F 10/17/20 11:51 Pulse 93 10/17/20 11:51 Resp 20 10/17/20 11:51 BP 142/91 H 10/17/20 11:51 Pulse Ox 96 10/17/20 11:51 Body Mass Index 34.1 Appearance: Alert. Oriented X3. No acute distress. Eyes: Pupils equal, round and reactive to light. 1.5cm pustule on upper eye lid above the hairline with 2 pustules seen with flucuance and tenting ENT: Pharynx normal. Neck: Normal inspection. Neck supple. CVS: Normal heart rate and rhythm. Pulses normal. Respiratory: No respiratory distress. Breath sounds normal. Skin: Skin warm and dry. Normal skin color. Normal skin turgor. Extremities: No lower extremity edema. Neuro: Oriented X 3. No motor deficit. No sensory deficit. MDM - Eye Problem MDM Narrative Medical decision making narrative: 45 yo female with pustule on upper eye lid above the hairline with 2 pustules seen with flucuance and tenting - at patient's request unroofed one of the pustules to express exudate - tolerated well , ointment and cephalexin Procedures Procedure Narrative Procedure Narrative: R eye lid 1.5cm lesion above the hairlline with two pustular areas isolated to the lid - applied betadine and unroofed one of the pustules - yellow exudate was expressed immediately the patient tolerated well no issues Discharge Plan Discharge Clinical Impression: Abscess Patient Disposition: Home, Self-Care Instructions: Abscess (ED) Additional Instructions: return to ED for any worsening symptoms or concerns warm compresses three time a day keep area clean and dry Prescriptions: New cephalexin 500 mg capsule 500 mg PO BID 7 Days Qty: 14 RF: 0 erythromycin 5 mg/gram (0.5 %) ointment 0.5 inch ophthalmic (eye) TID Qty: 3.5 RF: 0 No Action Iron Chews 15 mg tablet,chewable 15 mg PO DAILY RF: 0 mecobalamin (vitamin B12) 1,000 mcg tablet,chewable 1,000 mcg PO DAILY RF: 0 quetiapine [Seroquel] 25 mg tablet 25 mg PO BEDTIME RF: 0 acetaminophen [Tylenol Extra Strength] 500 mg tablet 1,000 mg PO Q6H PRN (Reason: pain) Qty: 30 RF: 1 Stand Alone Forms: Work/School Release
== END 2020-10-17 14:17 | disposition home or self-care (01) ==
PROVIDERS: Emergency Provider Emergency Medicine; PCP Physician Assistant
DX: H00.031 Abscess of right upper eyelid (principal)
CPT/HCPCS: 67700; 99283

== ENCOUNTER → 2020-12-12 14:04 | Outpatient (BNVA) | payer MEDICAID, SELFPAY | PROVIDERS: PCP Physician Assistant; Visit Provider Physician Assistant Surgical | DX: Z98.84 Bariatric surgery status (principal); Z98.890 Other specified postprocedural states; Z87.19 Personal history of other diseases of the digestive system | CPT/HCPCS: 99212 ==

== ENCOUNTER 2020-12-14 11:18 | Outpatient (REF) | payer MEDICAID, SELFPAY ==
--- NOTE | ~2020-12-14 | FL_ITS ---
EXAMINATION: XR GI SERIES CLINICAL INFORMATION: Bariatric surgery status COMPARISON: None TECHNIQUE: Upper GI was performed using thin and thick barium and effervescent granules. FINDINGS: Esophageal motility is normal. The stomach is small post gastric sleeve. There is rapid emptying contrast from the stomach into the small bowel. No mass, ulcer or fold thickening or stricture is seen. There is significant gastroesophageal reflux. There is persistent mucosal irregularity of the distal thoracic esophagus questionable for esophagitis. Endoscopic correlation should be considered. FLUOROSCOPY TIME: 0.9 minutes DOSE AREA PRODUCT: uGy-12 wall per centimeter squared. 19 saved fluoroscopic images. FL/FL upper GI series IMPRESSION: Postsurgical change to the stomach post gastric bypass. The stomach is small and empties rapidly into the small bowel. Significant gastroesophageal reflux. Persistent irregularity of the distal thoracic esophagus questionable for esophagitis. Endoscopic correlation recommended.
== END 2020-12-14 11:19 | disposition home or self-care (01) ==
LOC: HO.XRAY 11:18
PROVIDERS: Visit Provider Surgery
DX: Z98.84 Bariatric surgery status (principal); Z98.890 Other specified postprocedural states; Z87.19 Personal history of other diseases of the digestive system
CPT/HCPCS: 74240

== ENCOUNTER 2020-12-16 10:15 | Outpatient (REF) | payer MEDICAID, SELFPAY ==
[2020-12-16 10:49] LABS: Appearance Urine HAZY; Color Urine DK YELLOW; Glucose Urine UA NEG (NEG); Leukocyte Esterase Urine NEG (NEG); Nitrite Urine NEG (NEG); Urine Blood NEG (NEG); Urine Ketones NEG (NEG); Urine Protein NEG (NEG-TRACE)
[2020-12-16 11:16] LABS: Anion Gap 9 (12-20); Blood Urea Nitrogen 6 mg/dL (9-16); Calcium 8.7 mg/dL (8.4-10.2); Carbon Dioxide 29 mmol/L (22-29); Chloride 105 mmol/L (96-108); Estimated Glomerular Filt Rate > 60; Glucose Random 95 mg/dL (60-115); Potassium 3.4 mmol/L (3.3-5.1); Sodium 140 mmol/L (135-145)
[2020-12-24 12:57] LABS: Vitamin B1 <6 nmol/L (8-30)
== END 2020-12-16 10:16 | disposition home or self-care (01) ==
LOC: HO.LAB 10:15
PROVIDERS: Surgery; PCP Physician Assistant; Visit Provider Physician Assistant Surgical
DX: Z01.818 Encounter for other preprocedural examination (principal); K91.2 Postsurgical malabsorption, not elsewhere classified; E51.9 Thiamine deficiency, unspecified; Z98.84 Bariatric surgery status; Z90.3 Acquired absence of stomach [part of]
CPT/HCPCS: 36415; 80048; 81003; 84425; 99212

== ENCOUNTER 2020-12-27 12:03 | Day surgery (SDC) | payer MEDICAID, SELFPAY ==
[2020-12-20 14:38] VITALS: BMI 30.4
--- NOTE | 2020-12-24 17:29 | MHC.SHP ---
Pre-Procedural Eval Section A Date of Service: 12/24/20 The patient is an INPATIENT: No The History & Physical has been completed within 30 days and I have reviewed it.: Yes Section B Chief Complaint: Other post procedural states Details of Present Illness: nausea and vomiting Relevant Family History (Specify if Yes): No Relevant Social History: None Present Medications: None Medical History: No relevant PMH History of Previous Operations: Relevant previous surgery/procedure and date(s) (sleeve gastrectomy) Allergies: Allergies Allergy/AdvReac Type Severity Reaction Status Date / Time No Known Allergies Allergy Verified 12/16/20 11:22 Review of Systems Sugical H&P ROS: Negative: Constitution, Cardiovascular, Respiratory, Neurological, Psychiatric, Hem-Onc, Allergic/Immunologic, Gastrointestinal, Genitourinary, Musculoskeletal, Integumentary, Endocrine and Eyes/Ears/Nose/Throat Exam Surgical H&P Exam: Normal: HEENT, Normal: Heart, Normal: Lungs, Normal: Extremities, Normal: Abdomen, Normal: Skin and Normal: Neurological Plan Diagnosis/Plan: Unchanged (Endoscopy to assess patient's symptoms. If a stricture is found a dilation will be performed. Risks of perforation and bleeding were discussed.) I have reviewed the history and physical and performed a pertinent physical examination on my patient. No changes have occurred unless specified.
--- NOTE | 2020-12-26 11:11 | HO.ANESPROP2 ---
Documented by User: Darcy Miles NP 12/26/20 11:12 HPI - Anesthesia Eval Consult details Narrative: 45yo F for Upper Endoscopy with Savary Dilation Under Fluroscopy s/p gastric sleeve with GETA 06/2020 [facility] Active Problems Active Problems: All Active Problems (Updated 10/18/20 @ 00:01 by Blank Palacios) Morbid obesity due to excess calories (Acute) S/P laparoscopic sleeve gastrectomy (Acute) History of repair of hiatal hernia (Acute) Intestinal malabsorption following gastrectomy (Acute) Hiatal hernia (Acute) Past Medical History Medical History Anxiety Arthritis Back pain Binge eating disorder Body mass index (BMI) of 40.1 to 44.9 in adult KENISHA I (cervical intraepithelial neoplasia I) Depression Hiatal hernia Insomnia Intestinal malabsorption following gastrectomy Migraines Ovarian cyst Preoperative examination Scoliosis Shortness of breath Vitamin B1 deficiency Vitamin D deficiency Family History Family History Father Colon cancer Mother No problems noted. Brother Obesity Brother Obesity Son No problems noted. Daughter No problems noted. Daughter No problems noted. Surgical History Surgical History (Updated 12/20/20 @ 14:36 by Silva Sarmiento RN) History of arthroscopy of both knees History of cervical LEEP biopsy affecting care of mother, antepartum History of repair of hiatal hernia Hx of breast reduction, elective Hx of tubal ligation S/P laparoscopic sleeve gastrectomy Social History Social History Household Members: Family Housing: Apartment Are you a primary career development specialist to a significant other at home: No Do you presently have visiting nurse or other home services: No Alcohol intake: never Patient Tobacco Use Status: Never used Tobacco Use of substances other than those prescribed or required for medical reasons: No Advance Directives: No (unknown) Advance Directives Information Provided: Yes Advance Directives on File: No service: No Current occupational status: employed Meds Allergies Allergy/AdvReac Type Severity Reaction Status Date / Time No Known Allergies Allergy Verified 12/16/20 11:22 Active Medications: Current Medications Lactated Ringer's (Lr) 1,000 mls @ 80 mls/hr IVCONT .[id number] [facility] Home Medications Medication Instructions Recorded Confirmed Last Taken Type iron, carbonyl 15 mg chewable 15 mg PO DAILY 01/28/20 12/12/20 12/27/20 History tablet (Iron Chews) mecobalamin (vitamin B12) 1,000 1,000 mcg PO DAILY 03/18/20 12/12/20 12/27/20 History mcg chewable tablet quetiapine 25 mg tablet (Seroquel) 25 mg PO BEDTIME tab 07/20/20 12/12/20 12/27/20 History Exam Exam Date and Time: December 26, 2020 1111 Height,Weight and Vital Signs: Height 5 ft 10 in Weight 96.434 kg Pertinent Lab Results Pertinent Lab Results: Laboratory Tests 07/07/20 12/16/20 05:50 10:31 WBC 11.4 H Hgb 11.9 L Hct 36.6 L Plt Count 328 Sodium 140 Potassium 3.4 Chloride 105 Carbon Dioxide 29 BUN 6 L Creatinine 0.71 Narrative Narrative: EKG 06/2020 Vent. Rate : 070 BPM ? ? Atrial Rate : 070 BPM ?? P-R Int : 116 ms? QRS Dur : 074 ms ? ? QT Int : 388 ms ? ? ? P-R-T Axes : 023 054 028 degrees ?? QTc Int : 419 ms ? Normal sinus rhythm Normal ECG When compared with ECG of 13-JUL-2019 17:45, No significant change was found Assessment and Plan Assessment Anesthesia Assessment: Chart Reviewed Documented by User: Tiara Newton MD 12/27/20 13:13 [facility] Active Problems Active Problems: All Active Problems (Updated 10/18/20 @ 00:01 by Blank Palacios) Morbid obesity due to excess calories (Acute) S/P laparoscopic sleeve gastrectomy (Acute) History of repair of hiatal hernia (Acute) Intestinal malabsorption following gastrectomy (Acute) Hiatal hernia (Acute) Vomiting everday. Last time this morning Smoker. Last cigarette this morning Past Medical History Medical History Anxiety Arthritis Back pain Binge eating disorder Body mass index (BMI) of 40.1 to 44.9 in adult KENISHA I (cervical intraepithelial neoplasia I) Depression Hiatal hernia Insomnia Intestinal malabsorption following gastrectomy Migraines Ovarian cyst Preoperative examination Scoliosis Shortness of breath Vitamin B1 deficiency Vitamin D deficiency Family History Family History Father Colon cancer Mother No problems noted. Brother Obesity Brother Obesity Son No problems noted. Daughter No problems noted. Daughter No problems noted. Family history of problems with anesthesia: No Surgical History Surgical History (Updated 12/20/20 @ 14:36 by Silva Sarmiento RN) History of arthroscopy of both knees History of cervical LEEP biopsy affecting care of mother, antepartum History of repair of hiatal hernia Hx of breast reduction, elective Hx of tubal ligation S/P laparoscopic sleeve gastrectomy History of Problems with Anesthesia: No Social History Social History Household Members: Family Housing: Apartment Are you a primary career development specialist to a significant other at home: No Do you presently have visiting nurse or other home services: No Alcohol intake: never Patient Tobacco Use Status: Never used Tobacco Use of substances other than those prescribed or required for medical reasons: No Advance Directives: No (unknown) Advance Directives Information Provided: Yes Advance Directives on File: No service: No Current occupational status: employed Meds Allergies Allergy/AdvReac Type Severity Reaction Status Date / Time No Known Allergies Allergy Verified 12/16/20 11:22 Home Medications Medication Instructions Recorded Confirmed Last Taken Type iron, carbonyl 15 mg chewable 15 mg PO DAILY 01/28/20 12/12/20 12/27/20 History tablet (Iron Chews) mecobalamin (vitamin B12) 1,000 1,000 mcg PO DAILY 03/18/20 12/12/20 12/27/20 History mcg chewable tablet quetiapine 25 mg tablet (Seroquel) 25 mg PO BEDTIME tab 07/20/20 12/12/20 12/27/20 History Assessment and Plan Final Anesthetic Review Family History of Problems with Anesthesia: No History of Problems with Anesthesia: No Documented by User: Nick Germain MD 12/27/20 14:10 [facility] Past Medical History Medical History Anxiety Arthritis Back pain Binge eating disorder Body mass index (BMI) of 40.1 to 44.9 in adult KENISHA I (cervical intraepithelial neoplasia I) Depression Hiatal hernia Insomnia Intestinal malabsorption following gastrectomy Migraines Ovarian cyst Preoperative examination Scoliosis Shortness of breath Vitamin B1 deficiency Vitamin D deficiency Family History Family History Father Colon cancer Mother No problems noted. Brother Obesity Brother Obesity Son No problems noted. Daughter No problems noted. Daughter No problems noted. Surgical History Surgical History (Updated 12/20/20 @ 14:36 by Silva Sarmiento RN) History of arthroscopy of both knees History of cervical LEEP biopsy affecting care of mother, antepartum History of repair of hiatal hernia Hx of breast reduction, elective Hx of tubal ligation S/P laparoscopic sleeve gastrectomy Social History Social History Household Members: Family Housing: Apartment Are you a primary career development specialist to a significant other at home: No Do you presently have visiting nurse or other home services: No Alcohol intake: never Patient Tobacco Use Status: Never used Tobacco Use of substances other than those prescribed or required for medical reasons: No Advance Directives: No (unknown) Advance Directives Information Provided: Yes Advance Directives on File: No service: No Current occupational status: employed Meds Allergies Allergy/AdvReac Type Severity Reaction Status Date / Time No Known Allergies Allergy Verified 12/16/20 11:22 Home Medications Medication Instructions Recorded Confirmed Last Taken Type iron, carbonyl 15 mg chewable 15 mg PO DAILY 01/28/20 12/12/20 12/27/20 History tablet (Iron Chews) mecobalamin (vitamin B12) 1,000 1,000 mcg PO DAILY 03/18/20 12/12/20 12/27/20 History mcg chewable tablet quetiapine 25 mg tablet (Seroquel) 25 mg PO BEDTIME tab 07/20/20 12/12/20 12/27/20 History Exam Airway Mallampati Class: II TM Dist: >3cm Neck ROM: Full Heart: rrr+[id number] Lungs: cta b/l Assessment and Plan Assessment Anesthesia Assessment: Anesthesia Plan Discussed and PAT Visit Final Anesthetic Review NPO: Yes ASA Class: III Final Preanesthetic Review: No Changes in Pt Med Stat, Meds/Allgs Chart Reviewed, Consent Obtained/Reviewed and Anes Risks/Benef Reviewed Patient Risk: Intermediate Procedure Risk: Intermediate Assessment/Block/Sedation in SS: Assess/Block/Sedation-SS Anesthetic Plan Anesthetic Plan: MAC: and Agree w/ Assess. and Plan Disposition: Standard PACU
--- NOTE | 2020-12-27 10:38 | P.BOP_ITS ---
Brief Operative Note Date of Service: 12/27/20 Pre-op diagnosis: Persistent nausea, vomiting and GERD, s/p sleeve gastrectomy Post-op diagnosis: same (Sleeve stricture, esophagitis and gastritis) Procedure: PROCEDURE DATE: 12/27/2020 PREOPERATIVE DIAGNOSIS: GERD, s/p sleeve gastrectomy POSTOPERATIVE DIAGNOSIS: ?Same as above. 1) stricture mid-sleeve, 2) esophagitis, 3) distal gastritis PROCEDURE: [id number] with biopsy and balloon dilation Surgeon: ?Lasha Chew M.D.. Ph.D. Garbage Collector Driver: None ? Anesthesia: IV sedation Estimated blood loss: ?Minimal FINDINGS AND PROCEDURE: ? OPERATIVE INDICATIONS: ?The patient is a 45 year old female known to me who underwent a laparoscopic sleeve gastrectomy by Dr. Luis on 07/06/2020. The patient had remarkable weight loss so far and had a completely uneventful recovery.? The patient is reporting persistent nausea and vomiting sinc eher surgery particularly with solids. Recent UGI did not show any contrast hold up but showed significant GERD. Based on this information I recommended an upper endoscopy to evaluate the patient's symptoms. Risks and complications of the surgery were discussed with the patient in advance particularly the possibility of perforation or bleeding that may require surgical intervention. The patient understood the risks and was in agreement with the plan. ? PROCEDURE: After informed consent was obtained by the patient, the patient was ?transferred to the Operating Room and was placed in the supine position.? After successful induction of IV sedation, a mouth block was inserted and the patient was placed in the left lateral decubitus position. An upper endoscopy was performed next, the oropharynx and esophagus appeared within the normal limits. There was no hiatal hernia. The z-line was irregular with tongues of gastric mucosa protruding into the esophagus in less than 50% circumference. There was no narrowing at the GE junction. Approximately 2-3 cm distal to the GE junction there was a relatively narrow segment of 2-3cm long of sleeve in which the lumen is significantly more narrow compared to the remaining sleeve. This area does not open up with air inflation and requires considerable difficulty for the scope to get through. The small size scope does pass through eventually. Balloon dilation up to 20mm was performed for 1 minute. There was some improvement in the appearance of the stricture post-dilation. There was some gastritis at distal antrum and a biopsy was performed.. There was no ulcer. Biopsy were obtained from the distal antrum. No significant bleeding was noted from the biopsy site or the area of balloon dilation.. At that point the sleeve were decompressed and the scope was withdrawn from the patient's mouth. The patient extubated and was transferred in stable condition to the Recovery Room for further care. I was present and performed all steps of the procedure. There were no residents to assist with this case. Lasha Chew M.D., Ph.D. Surgeon: Aki Chew MD Anesthesia: GETA Was an Garbage Collector Driver used for this Procedure?: No Estimated blood loss (mL): 0 IV fluids (mL): 500 Urine output (mL): 0 (No Mckenna to record) Pathology: other (Antrum) Condition: stable Disposition: PACU
[2020-12-27 12:17] VITALS: BP 135/92; PULSE 75; RESP 18; TEMP 36.1; O2SAT 96
[2020-12-27] MEDS: Lactated Ringers 1,000 ML 80 ML IVCONT (12:36)
[2020-12-27 12:43] LABS: COVID-19 Test Negative (Negative); IDNOW Serial# 9DD0AD1C
[2020-12-27 15:10] VITALS: BP 136/96; PULSE 74; RESP 14; TEMP 36.7; O2SAT 98
[2020-12-27 15:15] VITALS: BP 139/90; PULSE 68; RESP 16; O2SAT 100
[2020-12-27 15:20] VITALS: BP 137/93; PULSE 68; RESP 18; O2SAT 100
[2020-12-27 15:25] VITALS: BP 137/94; PULSE 60; RESP 18; O2SAT 100
[2020-12-27 15:40] VITALS: BP 109/55; PULSE 71; RESP 20; TEMP 36.8; O2SAT 99
== END 2020-12-27 16:20 | disposition home or self-care (01) ==
LOC: HO.SSS 12:04
PROVIDERS: PCP Physician Assistant; Visit Provider Surgery
PROC: 0DJ08ZZ Inspection of Upper Intestinal Tract, Via Natural or Artificial Opening Endoscopic (ICD-10-PCS; CPT 43235; principal; 2020-12-27 13:00)
DX: K31.89 Other diseases of stomach and duodenum (principal); K21.9 Gastro-esophageal reflux disease without esophagitis; K91.2 Postsurgical malabsorption, not elsewhere classified; K29.70 Gastritis, unspecified, without bleeding; K20.80 Other esophagitis without bleeding; F50.81 Binge eating disorder; Z68.30 Body mass index [BMI] 30.0-30.9, adult; Z90.3 Acquired absence of stomach [part of]; Z98.84 Bariatric surgery status; Z98.890 Other specified postprocedural states; Z87.19 Personal history of other diseases of the digestive system
CPT/HCPCS: 43245; 43239; 36415; 87635; 88305; 88342; C1726; J0330; J1100; J1200; J2405; J3010

== ENCOUNTER → 2020-12-29 10:26 | Outpatient (BNVA) | payer MEDICAID, SELFPAY | PROVIDERS: PCP Physician Assistant; Visit Provider Physician Assistant Surgical | DX: K21.00 Gastro-esophageal reflux disease with esophagitis, without bleeding (principal) | CPT/HCPCS: 99212 ==

== ENCOUNTER 2021-01-04 11:14 | Outpatient (REF) | payer MEDICAID, SELFPAY ==
--- NOTE | ~2021-01-04 | CT_ITS ---
EXAMINATION: CT ABDOMEN AND PELVIS WITHOUT CONTRAST CLINICAL INFORMATION: Diaphragmatic hernia without obstruction or gangrene. COMPARISON: None TECHNIQUE: Multidetector volumetric imaging was performed from the superior aspect of the liver through the pubic symphysis. Sagittal and coronal reformatted images were obtained on the technologist's workstation. This CT examination was performed using dose optimization techniques as appropriate, variously including the following: *Automated exposure control *Adjustment of mA and/or kV according to patient size (this includes techniques or standardized protocols for targeted exams where dose is matched to indication/reason for exam; i.e. extremities or head) *Use of iterative reconstruction technique DLP: 634 mGy-cm FINDINGS: LUNG BASES: The visualized lung bases are unremarkable. LIVER, GALLBLADDER, AND BILIARY TREE: The liver is normal in size, shape, and attenuation. No focal hepatic lesion or biliary ductal dilatation is present. The gallbladder is unremarkable with no evidence of radiopaque gallstones, gallbladder wall thickening, or obvious pericholecystic inflammatory changes. PANCREAS: Unremarkable. SPLEEN: Unremarkable. ADRENAL GLANDS: Unremarkable. KIDNEYS AND URETERS: The kidneys are normal in size, shape, and attenuation. No hydronephrosis, hydroureter, or calculi seen. No perinephric stranding. BLADDER: Unremarkable. GASTROINTESTINAL TRACT: There is scattered stool and gas seen throughout the colon without any significant distention. The small bowel loops are normal caliber. Appendix is not visualized. No inflammatory process seen in the abdomen. There is gastric sleeve surgery noted. ABDOMINAL WALL: There is a midline epigastric small hernia containing fat. Minimal adjacent fat stranding is seen. LYMPH NODES: Normal. VASCULAR: Unremarkable. PELVIC VISCERA: The uterus is anteverted and appears unremarkable. There is a small right ovarian cyst measuring 2.5 cm. There is no free fluid. OSSEOUS STRUCTURES: There is vacuum disc phenomena and loss of disc height at L5-S1 disc level. Rest of the disc heights, vertebral heights and alignment is normal. CT/CT abdomen pelvis wo con IMPRESSION: No evidence of hiatal hernia. Small midline anterior epigastric wall hernia with fat within and mild fat stranding. Mild constipation. Small 2.5 cm right ovarian cyst.
== END 2021-01-04 11:15 | disposition home or self-care (01) ==
LOC: HO.CT 11:14
PROVIDERS: Visit Provider Physician Assistant Surgical
DX: K44.9 Diaphragmatic hernia without obstruction or gangrene (principal)
CPT/HCPCS: 74176

== ENCOUNTER → 2021-01-12 15:24 | Outpatient (BNVA) | payer MEDICAID, SELFPAY | PROVIDERS: PCP Physician Assistant; Visit Provider Physician Assistant Surgical ==

== ENCOUNTER → 2021-02-09 08:36 | Outpatient (BNVA) | payer MEDICAID, SELFPAY | PROVIDERS: PCP Physician Assistant; Visit Provider Dietitian, Registered ==

== ENCOUNTER 2021-02-11 02:54 | Emergency (ER) | payer MEDICAID, SELFPAY ==
--- NOTE | 2021-02-11 | ECG_ITS ---
Test Reason : chest pain Blood Pressure : / mmHG Vent. Rate : 079 BPM Atrial Rate : 079 BPM P-R Int : 098 ms QRS Dur : 072 ms QT Int : 374 ms P-R-T Axes : 017 027 019 degrees QTc Int : 428 ms Sinus rhythm with short PA Otherwise normal ECG When compared with ECG of 28-JUN-2020 11:35, No significant change was found Referred By: Generic ED Physician Electronically Signed By:Tyler Skaggs
[2021-02-11 03:02] VITALS: BP 124/104; PULSE 93; RESP 18; TEMP 37; O2SAT 100; BMI 28.5
[2021-02-11 04:55] LABS: MANUAL DIFF FLAG NO
[2021-02-11 04:56] LABS: Basophils Absolute Auto 0.1 X10*3/uL (0.0-0.2); Basophils Percent Auto 0.8 % (0-2); Eosinophils Absolute Auto 0.1 X10*3/uL (0.0-0.4); Eosinophils Percent Auto 0.8 % (0-4); Hematocrit 38.2 % (37.0-47.0); Hemoglobin 12.5 g/dl (12.0-16.0); Imm Gran Abs Auto 0.02 X10*3/uL (0.00-0.03); Imm Gran Pct Auto 0.3 % (0.0-0.4); Lymphocytes Absolute Auto 2.1 X10*3/uL (1.2-4.9); Lymphocytes Percent Auto 26.7 % (20-40); Mean Corpuscular HGB Conc 32.7 g/dl (31.0-35.0); Mean Corpuscular Hemoglobin 27.7 pg (27.0-33.0); Mean Corpuscular Volume 84.5 fL (80.0-98.0); Mean Platelet Volume 10.1 fL (9.4-12.3); Monocytes Absolute Auto 0.7 X10*3/uL (0.1-1.2); Neutrophils Percent Auto 62.4 % (45-73); Platelet Count 281 X10*3/uL (160-400); Red Blood Count 4.52 X10*6/uL (4.20-5.50); Red Cell Distribution Width 15.1 % (11.0-16.0)
[2021-02-11 05:11] LABS: Alanine Aminotransferase 13 U/L (0-31); Albumin Level 4.2 g/dL (3.5-5.0); Alkaline Phosphatase 64 U/L (39-117); Anion Gap 12 (12-20); Aspartate Amino Transferase 14 U/L (5-31); Bilirubin Direct 0.2 mg/dL (0.0-0.5); Bilirubin Total 0.5 mg/dL (0.0-1.0); Blood Urea Nitrogen 10 mg/dL (9-16); Calcium 9.5 mg/dL (8.4-10.2); Carbon Dioxide 30 mmol/L (22-29); Chloride 103 mmol/L (96-108); Creatinine Clr Calc Pharmacy 122.7; Estimated Glomerular Filt Rate > 60; Glucose Random 85 mg/dL (60-115); Potassium 3.9 mmol/L (3.3-5.1); Sodium 141 mmol/L (135-145); Total Protein 7.6 g/dL (6.5-8.0)
--- NOTE | 2021-02-11 05:11 | PC.NURSE ---
pt to room, labs drawn to lab. pt awaiting for pending labs. pt alert, and resting in stretcher. MD in room for eval.
[2021-02-11 05:15] LABS: Troponin-I High Sensitivity < 3.5 ng/L (<3.5-17.0)
--- NOTE | 2021-02-11 05:15 | ED.ARRPALP ---
HPI - Arrhythmia/Palpitations General Chief Complaint: Arrhythmia/Palpitations Stated Complaint: chest pain/anxiety Time Seen by Provider: 02/11/21 03:53 Source: patient Mode of arrival: ambulatory Limitations: no limitations History of Present Illness HPI narrative: Patient comes emergency room complaining of chest pain that started approximately 4 hours ago. Patient states she was driving, the pain has been constant, nonradiating. Patient denies shortness of breath. Related Data Home Medications Medication Instructions Recorded Confirmed iron, carbonyl 15 mg chewable 15 mg PO DAILY 01/28/20 12/12/20 tablet (Iron Chews) mecobalamin (vitamin B12) 1,000 1,000 mcg PO DAILY 03/18/20 12/12/20 mcg chewable tablet quetiapine 25 mg tablet (Seroquel) 25 mg PO BEDTIME tab 07/20/20 12/12/20 Previous Rx's Medication Instructions Recorded acetaminophen 500 mg tablet 1,000 mg PO Q6H PRN #30 tab 06/28/20 (Tylenol Extra Strength) erythromycin 5 mg/gram (0.5 %) eye 0.5 inch OPHTHALMIC (EYE) TID #3.5 10/17/20 ointment g thiamine HCl (vitamin B1) 100 mg 100 mg PO DAILY #30 tab 12/25/20 tablet sucralfate 100 mg/mL oral 1 g (10 mL) PO BID #420 ml 01/04/21 suspension (Carafate) Allergies Allergy/AdvReac Type Severity Reaction Status Date / Time No Known Allergies Allergy Verified 12/29/20 10:38 Review of Systems Review of Systems: Constitutional : No Weight loss, No Fever, No Chills, No Night Sweats, No Fatigue, No Malaise ENT/Mouth : No Hearing loss, No Ear Pain, No Nasal Congestion, No Sinus Pain, No Hoarseness, No sore throat, No Rhinorrhea, No Swallowing Difficulty Eyes: No Eye Pain, No Swelling, No Redness, No Foreign Body, No Discharge, No Vision Changes Cardiovascular : Complaining of Chest Pain, No SOB, No Dyspnea on Exertion, No Orthopnea, No Edema, No Palpitations Respiratory : No Cough, No Sputum, No Wheezing, No Smoke Exposure, No Dyspnea Gastrointestinal : No Nausea, No Vomiting, No Diarrhea, No Constipation, No abdominal Pain, No Hematochezia, No Melena Genitourinary : no irregular bleeding, No Dysuria, No Urinary Frequency, No Hematuria, No Urinary Incontinence, No Urgency, No Flank Pain, No Urinary Flow Changes, No Hesitancy Musculoskeletal : No joint pain, No Myalgias, No Joint Swelling Skin : No Skin Lesions, No rash Neuro : No Weakness, No Numbness, No Paresthesias, No Loss of Consciousness, No Dizziness, No Headache Psych : No Anxiety/Panic, No Depression, No SI/HI/AH/VH, No Social Issues, Heme/Lymph: No Bruising, No Bleeding,No Lymphadenopathy Endocrine : No Polyuria, No Polydipsia, No Temperature Intolerance [facility] Past Medical History Medical History Anxiety Arthritis Back pain Binge eating disorder Body mass index (BMI) of 40.1 to 44.9 in adult KENISHA I (cervical intraepithelial neoplasia I) Depression Hiatal hernia Insomnia Intestinal malabsorption following gastrectomy Migraines Ovarian cyst Preoperative examination Scoliosis Shortness of breath Vitamin B1 deficiency Vitamin D deficiency Surgical History History of arthroscopy of both knees History of cervical LEEP biopsy affecting care of mother, antepartum History of repair of hiatal hernia Hx of breast reduction, elective Hx of tubal ligation S/P laparoscopic sleeve gastrectomy Family History Family History Father Colon cancer Mother No problems noted. Brother Obesity Brother Obesity Son No problems noted. Daughter No problems noted. Daughter No problems noted. Social History Social History Household Members: Family Housing: Apartment Are you a primary direct care provider to a significant other at home: No Do you presently have visiting nurse or other home services: No Alcohol intake: never Patient Tobacco Use Status: Never used Tobacco Advance Directives: No Advance Directives Information Provided: Yes Patient : No service: No Current occupational status: employed Physical Exam Vital Signs: Vital Signs: Last Vital Signs Temp 98.6 F 02/11/21 03:02 Pulse 93 02/11/21 03:02 Resp 18 02/11/21 03:02 BP 124/104 H 02/11/21 03:02 Pulse Ox 100 02/11/21 03:02 BMI result Body Mass Index 28.5 Const: Other: Appearance: Alert. Oriented X3. No acute distress. Very anxious, teary Eyes: Pupils equal, round and reactive to light. ENT: Pharynx normal. Neck: Normal inspection. Neck supple. No lymph nodes noted. No crepitus CVS: Normal heart rate and rhythm. Pulses normal. Normal S1 and S2 Respiratory: No respiratory distress. Breath sounds normal. No Wheezing. No rales Abdomen: Soft and nontender. No rigidity. No distention. Skin: Skin warm and dry. Normal skin color. Normal skin turgor. Extremities: No lower extremity edema. No Lacerations. No Rash Neuro: Oriented X 3. No motor deficit. No sensory deficit. Moving all extermities. No slurred speech. Course Course Course Narrative: Patient tearful, very emotional. Troponin is negative . Patient has history of bariatric surgery and reflux esophagitis. Left because the patient's symptoms rather than being from cardiac etiology MDM - Arrhythmia/Palpitations Lab Data Result diagrams: 02/11/21 04:50 02/11/21 04:50 Labs: Lab Results 02/11/21 02/11/21 02/11/21 Range/Units 04:50 04:50 04:50 WBC 8.0 (4.8-10.8) X10*3/uL RBC 4.52 (4.20-5.50) X10*6/uL Hgb 12.5 (12.0-16.0) g/dl Hct 38.2 (37.0-47.0) % MCV 84.5 (80.0-98.0) fL MCH 27.7 (27.0-33.0) pg MCHC 32.7 (31.0-35.0) g/dl RDW 15.1 (11.0-16.0) % Plt Count 281 (160-400) X10*3/uL MPV 10.1 (9.4-12.3) fL Immature Gran % (Auto) 0.3 (0.0-0.4) % Neut % (Auto) 62.4 (45-73) % Lymph % (Auto) 26.7 (20-40) % Jasper % (Auto) 9.0 (2-11) % Eos % (Auto) 0.8 (0-4) % Baso % (Auto) 0.8 (0-2) % Lymph # (Auto) 2.1 (1.2-4.9) X10*3/uL Jasper # (Auto) 0.7 (0.1-1.2) X10*3/uL Eos # (Auto) 0.1 (0.0-0.4) X10*3/uL Baso # (Auto) 0.1 (0.0-0.2) X10*3/uL Abs Immat Gran (auto) 0.02 (0.00-0.03) X10*3/uL Absolute Neuts (auto) 5.0 (2.0-8.3) x10*3/uL Absolute Nucleated RBC 0.000 (0.0-0.012) X10*3/uL Nucleated RBC % (auto) 0.0 (0.0-0.2) /100WBC Sodium 141 (135-145) mmol/L Potassium 3.9 (3.3-5.1) mmol/L Chloride 103 (96-108) mmol/L Carbon Dioxide 30 H (22-29) mmol/L Anion Gap 12 (12-20) BUN 10 (9-16) mg/dL Creatinine 0.72 (0.5-1.4) mg/dL Estim Creat Clear Calc 122.7 Estimated GFR > 60 Random Glucose 85 (60-115) mg/dL Calcium 9.5 D (8.4-10.2) mg/dL Total Bilirubin 0.5 (0.0-1.0) mg/dL Direct Bilirubin 0.2 (0.0-0.5) mg/dL AST 14 (5-31) U/L ALT 13 (0-31) U/L Alkaline Phosphatase 64 D (39-117) U/L Troponin I High Sens < 3.5 (<3.5-17.0) ng/L Total Protein 7.6 (6.5-8.0) g/dL Albumin 4.2 (3.5-5.0) g/dL ECG Data Attestation: I personally reviewed and interpreted this ECG as follows: (Sinus rhythm, heart rate 79, no ST segment depression or elevation, nonspecific T-wave inversion in lead 3, QTC 428) Discharge Plan Discharge Clinical Impression: Atypical chest pain Patient Disposition: Home, Self-Care Instructions: Chest Pain (ED) Additional Instructions: Please follow-up with your primary care physician tomorrow. If you continue having intermittent chest pain, please discuss having a stress test with her primary care physician. If you have any worsening or new symptoms, please return to the emergency room or call 911 Prescriptions: No Action thiamine HCl (vitamin B1) 100 mg tablet 100 mg PO DAILY Qty: 30 RF: 2 sucralfate [Carafate] 100 mg/mL suspension 1 g PO BID Qty: 420 RF: 1 erythromycin 5 mg/gram (0.5 %) ointment 0.5 inch ophthalmic (eye) TID Qty: 3.5 RF: 0 Iron Chews 15 mg tablet,chewable 15 mg PO DAILY RF: 0 mecobalamin (vitamin B12) 1,000 mcg tablet,chewable 1,000 mcg PO DAILY RF: 0 quetiapine [Seroquel] 25 mg tablet 25 mg PO BEDTIME RF: 0 acetaminophen [Tylenol Extra Strength] 500 mg tablet 1,000 mg PO Q6H PRN (Reason: pain) Qty: 30 RF: 1
[2021-02-11] MEDS: Magnesium Hydrox/Alum Hydrox 30 ML ORAL.SUSP PO (05:37)
[2021-02-11] MEDS: Lidocaine HCl Viscous 2 % 15 ML SOLUTION MUCOUS MEM (05:37)
--- NOTE | 2021-02-11 05:37 | PC.NURSE ---
pt anxious and crying in stretcher, pt medicated as per emar.
--- NOTE | 2021-02-11 05:40 | PC.NURSE ---
pt is complaining about drinking all the medicine pt is tearful in stretcher.
== END 2021-02-11 06:53 | disposition home or self-care (01) ==
PROVIDERS: Emergency Provider Emergency Medicine
DX: R07.9 Chest pain, unspecified (principal); R00.2 Palpitations; Z79.899 Other long term (current) drug therapy
CPT/HCPCS: 36415; 80048; 80076; 84484; 85025; 93005; 99283

== ENCOUNTER → 2021-02-21 08:07 | Outpatient (BNVA) | payer MEDICAID, SELFPAY | PROVIDERS: Visit Provider Dietitian, Registered ==

== ENCOUNTER → 2021-02-22 08:11 | Outpatient (BNVA) | payer MEDICAID, SELFPAY | PROVIDERS: Visit Provider Dietitian, Registered ==

== ENCOUNTER 2021-02-25 13:25 | Emergency (ER) | payer MEDICAID, SELFPAY ==
--- NOTE | 2021-02-25 | ECG_ITS ---
Test Reason : CHEST PAIN Blood Pressure : / mmHG Vent. Rate : 081 BPM Atrial Rate : 081 BPM P-R Int : 120 ms QRS Dur : 082 ms QT Int : 370 ms P-R-T Axes : 035 057 035 degrees QTc Int : 429 ms Normal sinus rhythm Normal ECG When compared with ECG of 11-FEB-2021 03:15, No significant change was found Referred By: Generic ED Physician Electronically Signed By:SAUL CAMPOS
[2021-02-25 13:32] VITALS: BP 142/98; PULSE 100; RESP 18; TEMP 36.8; O2SAT 97; BMI 27.8
== END 2021-02-25 22:01 | disposition left against medical advice (07) ==
PROVIDERS: Emergency Provider Emergency Medicine; PCP Physician Assistant
DX: R07.9 Chest pain, unspecified (principal); F12.90 Cannabis use, unspecified, uncomplicated
CPT/HCPCS: 93005; 99283

== ENCOUNTER → 2021-02-27 11:31 | Outpatient (BNVA) | payer MEDICAID, SELFPAY | PROVIDERS: PCP Physician Assistant | DX: N39.0 Urinary tract infection, site not specified (principal) | CPT/HCPCS: 99212 ==

== ENCOUNTER → 2021-03-20 08:12 | Outpatient (BNVA) | payer MEDICAID, SELFPAY | PROVIDERS: PCP Physician Assistant; Referring Provider Surgery; Visit Provider Dietitian, Registered ==

== ENCOUNTER → 2021-03-29 10:32 | Outpatient (BNVA) | payer MEDICAID, SELFPAY | PROVIDERS: PCP Physician Assistant; Visit Provider Physician Assistant Surgical | DX: K91.2 Postsurgical malabsorption, not elsewhere classified (principal); L98.7 Excessive and redundant skin and subcutaneous tissue; Z90.3 Acquired absence of stomach [part of]; Z98.890 Other specified postprocedural states; Z87.19 Personal history of other diseases of the digestive system | CPT/HCPCS: 99212 ==

== ENCOUNTER → 2021-04-07 08:18 | Outpatient (BNVA) | payer MEDICAID, SELFPAY | PROVIDERS: PCP Physician Assistant; Referring Provider Surgery; Visit Provider Dietitian, Registered ==

== ENCOUNTER → 2021-05-12 15:15 | Outpatient (BNVA) | payer MEDICAID, SELFPAY | PROVIDERS: PCP Physician Assistant; Visit Provider Physician Assistant Surgical | DX: Z13.89 Encounter for screening for other disorder (principal) ==

== ENCOUNTER 2021-05-12 15:51 | Emergency (ER) | payer MEDICAID, SELFPAY ==
--- NOTE | ~2021-05-12 | XR_ITS ---
EXAMINATION: XR CHEST CLINICAL INFORMATION: Diagnosis COMPARISON: 07/13/2019 TECHNIQUE: 2 views of the chest were obtained. FINDINGS: No significant abnormality is noted involving the heart, lungs, mediastinum, bony thorax or soft tissues. XR/XR chest 2V IMPRESSION: No acute pulmonary disease.
[2021-05-12 16:30] VITALS: BP 133/91; PULSE 77; RESP 22; TEMP 36.1; O2SAT 100; BMI 25.5
--- NOTE | 2021-05-12 16:36 | ECG_ITS ---
Test Reason : CP Blood Pressure : / mmHG Vent. Rate : 067 BPM Atrial Rate : 067 BPM P-R Int : 096 ms QRS Dur : 070 ms QT Int : 400 ms P-R-T Axes : 041 054 055 degrees QTc Int : 422 ms Sinus rhythm with short RI Otherwise normal ECG When compared with ECG of 25-FEB-2021 15:37, No significant changes seen Referred By: Generic ED Physician Electronically Signed By:SAUL CAMPOS
== END 2021-05-12 18:36 | disposition left against medical advice (07) ==
PROVIDERS: Emergency Provider Emergency Medicine
DX: R07.9 Chest pain, unspecified (principal); F41.9 Anxiety disorder, unspecified; Z72.89 Other problems related to lifestyle; Z63.4 Disappearance and death of family member
CPT/HCPCS: 71046; 87635; 93005; 99212; 99283

== ENCOUNTER → 2021-05-23 08:17 | Outpatient (BNVA) | payer MEDICAID, SELFPAY | PROVIDERS: Referring Provider Physician Assistant Surgical; Visit Provider Dietitian, Registered | DX: Z13.89 Encounter for screening for other disorder (principal) ==

== ENCOUNTER → 2021-06-07 13:04 | Outpatient (BNVA) | payer MEDICAID, SELFPAY | PROVIDERS: Visit Provider Physician Assistant Surgical | DX: E66.3 Overweight (principal); L98.7 Excessive and redundant skin and subcutaneous tissue; Z98.890 Other specified postprocedural states; Z87.19 Personal history of other diseases of the digestive system; Z68.26 Body mass index [BMI] 26.0-26.9, adult | CPT/HCPCS: 99212 ==

== ENCOUNTER → 2021-06-20 12:56 | Outpatient (BNVA) | payer MEDICAID, SELFPAY | PROVIDERS: PCP Physician Assistant | DX: Z13.89 Encounter for screening for other disorder (principal) ==

== ENCOUNTER 2021-07-12 11:42 | Outpatient (REF) | payer MEDICAID, SELFPAY ==
--- NOTE | ~2021-07-12 | MM_ITS ---
EXAMINATION: MM SCREENING DIGITAL BREAST TOMOSYNTHESIS, BILATERAL CLINICAL INFORMATION: Screening. Asymptomatic. Reduction mammoplasty, 2006. The lifetime risk of breast cancer based on the Tyrer-Cuzick Model is 7%. COMPARISON: Mammography: 06/21/2020, 04/22/2019, 04/18/2018, 06/30/2015 TECHNIQUE: Digital breast tomosynthesis is performed in both the craniocaudal and mediolateral oblique views along with computer-aided detection (CAD). Synthesized 2D images are generated from the tomosynthesis. FINDINGS: There are scattered areas of fibroglandular density (ACR BI-RADS breast composition Category b). Left MLO view has some subtle architectural changes central breast, 6.3 cm from nipple without correlate on CC view. Patient will be recalled for additional imaging. Remainder of the bilateral breasts show no mass or architectural abnormality or developing density. There are scattered bilateral round and predominantly dermal calcifications MM/MM tomosynthesis screening BI IMPRESSION: Left: -Subtle architectural changes mid central breast on MLO view. Right: -No mammographic evidence of malignancy. ASSESSMENT: BI-RADS 0: Incomplete - Need Additional Imaging Evaluation RECOMMENDATION: 1. Additional views of the left breast (spot MLO, standard ML). 2. Targeted ultrasound if warranted after review of the additional views. 3. Radiology department staff will contact the patient for additional imaging. This patient's information was entered into a reminder system with a target due date for their next mammogram.
== END 2021-07-12 11:43 | disposition home or self-care (01) ==
LOC: HO.MAMMO 11:42
PROVIDERS: PCP Physician Assistant; Visit Provider Physician Assistant
DX: Z12.31 Encounter for screening mammogram for malignant neoplasm of breast (principal)
CPT/HCPCS: 77063; 77067

== ENCOUNTER 2021-07-27 12:37 | Outpatient (REF) | payer MEDICAID, SELFPAY ==
--- NOTE | ~2021-07-27 | MM_ITS ---
EXAMINATION: MM DIAGNOSTIC DIGITAL BREAST TOMOSYNTHESIS, LEFT CLINICAL INFORMATION: Recall from screening for question of architectural changes central breast limited to MLO view. Remote history reduction mammoplasty, 2006. Patient also notes history excisional biopsy benign cyst left breast in the past. Patient has had significant intentional weight loss since bariatric surgery 12/14/2020. COMPARISON: Mammography: 07/12/2021, 06/21/2020, 04/22/2019, 04/18/2018 TECHNIQUE: Digital breast tomosynthesis is performed. 2D images are generated from the tomosynthesis. The following views are obtained: Standard ML, spot MLO. FINDINGS: There are scattered areas of fibroglandular density (ACR BI-RADS breast composition Category b). Additional views show no architectural abnormality. There are scattered fibroglandular densities and stromal markings similar to prior studies. Results are discussed with the patient at time of visit. MM/MM tomosynthesis added views L IMPRESSION: Additional views show no architectural distortion. ASSESSMENT: BI-RADS 2: Benign RECOMMENDATION: Routine annual mammography screening. This patient's information was entered into a reminder system with a target due date for their next mammogram.
== END 2021-07-27 12:38 | disposition home or self-care (01) ==
LOC: HO.MAMMO 12:37
PROVIDERS: Visit Provider Physician Assistant
DX: R92.8 Other abnormal and inconclusive findings on diagnostic imaging of breast (principal)
CPT/HCPCS: 77061; 77065

== ENCOUNTER → 2021-08-01 15:19 | Outpatient (BNVA) | payer MEDICAID, SELFPAY | PROVIDERS: Referring Provider Surgery; Visit Provider Dietitian, Registered | DX: E66.9 Obesity, unspecified (principal); Z68.24 Body mass index [BMI] 24.0-24.9, adult; Z98.84 Bariatric surgery status; Z71.3 Dietary counseling and surveillance | CPT/HCPCS: 97803 ==

== ENCOUNTER 2021-08-07 07:54 | Day surgery (SDC) | payer MEDICAID, SELFPAY ==
--- NOTE | 2021-07-24 11:46 | HO.ANESPROP2 ---
HPI - Anesthesia Eval Consult details Narrative: 46yo F for Upper Endoscopy with savory dilation under fluoroscopy s/p EGD 12/2020 with GA-ETT 7 s/p sleeve 06/2020 [facility] Active Problems Active Problems: All Active Problems (Updated 06/07/21 @ 13:50 by LILLIANA White) Overweight (Acute) Chest pain (Acute) Excess skin (Acute) Frequent UTI (Acute) Reflux esophagitis (Acute) Morbid obesity due to excess calories (Acute) S/P laparoscopic sleeve gastrectomy (Acute) History of repair of hiatal hernia (Acute) Intestinal malabsorption following gastrectomy (Acute) Hiatal hernia (Acute) Past Medical History Medical History Anxiety Arthritis Back pain Binge eating disorder Body mass index (BMI) of 40.1 to 44.9 in adult KENISHA I (cervical intraepithelial neoplasia I) Depression Frequent UTI Hiatal hernia Insomnia Intestinal malabsorption following gastrectomy Migraines Ovarian cyst Preoperative examination Scoliosis Shortness of breath Vitamin B1 deficiency Vitamin D deficiency Family History Family History Father Colon cancer Mother No problems noted. Brother Obesity Brother Obesity Son No problems noted. Daughter No problems noted. Daughter No problems noted. Family history of problems with anesthesia: No Surgical History Surgical History History of arthroscopy of both knees History of cervical LEEP biopsy affecting care of mother, antepartum History of repair of hiatal hernia Hx of breast reduction, elective Hx of tubal ligation S/P laparoscopic sleeve gastrectomy History of Problems with Anesthesia: No Social History Social History Household Members: Family Housing: Apartment Are you a primary elderly caregiver to a significant other at home: No Do you presently have visiting nurse or other home services: No Alcohol intake: never Patient Tobacco Use Status: Current everyday Tobacco user Tobacco use type: Cigarette Substance Use Type: Marijuana service: No Current occupational status: employed Meds Allergies Allergy/AdvReac Type Severity Reaction Status Date / Time No Known Allergies Allergy Verified 06/20/21 12:58 Home Medications Medication Instructions Recorded Confirmed Last Taken Type iron, carbonyl 15 mg chewable 15 mg PO DAILY 01/28/20 06/07/21 12/27/20 History tablet (Iron Chews) mecobalamin (vitamin B12) 1,000 1,000 mcg PO DAILY 03/18/20 06/07/21 12/27/20 History mcg chewable tablet quetiapine 25 mg tablet (Seroquel) 25 mg PO BEDTIME 07/20/20 06/07/21 12/27/20 History capsaicin 0.025 % topical cream 1 appl topical BID 02/27/21 06/07/21 Unknown History diclofenac sodium 1 % topical gel g topical 02/27/21 06/07/21 Unknown History quetiapine 100 mg tablet 100 mg PO BEDTIME 02/27/21 06/07/21 Unknown History sertraline 100 mg tablet 100 mg PO DAILY 02/27/21 06/07/21 Unknown History terbinafine HCl 250 mg tablet 250 mg PO DAILY 02/27/21 06/07/21 Unknown History mupirocin 2 % topical ointment topical DAILY 03/20/21 06/07/21 Unknown History amoxicillin 500 mg-potassium 1 tab PO Q8H 06/20/21 Unknown History clavulanate 125 mg tablet dicyclomine 20 mg tablet 20 mg PO BID PRN 06/20/21 Unknown History tramadol 50 mg tablet 50 mg PO Q8H PRN pain 06/20/21 Unknown History Exam Exam Date and Time: July 24, 2021 1146 Pertinent Lab Results Pertinent Lab Results: Laboratory Tests 02/11/21 02/11/21 04:50 04:50 WBC 8.0 Hgb 12.5 Hct 38.2 Plt Count 281 Sodium 141 Potassium 3.9 Chloride 103 Carbon Dioxide 30 H BUN 10 Creatinine 0.72 Narrative Narrative: EKG 05/2021 Vent. Rate : 067 BPM ? ? Atrial Rate : 067 BPM ?? P-R Int : 096 ms? QRS Dur : 070 ms ? ? QT Int : 400 ms ? ? ? P-R-T Axes : 041 054 055 degrees ?? QTc Int : 422 ms ? Sinus rhythm with short ME Otherwise normal ECG When compared with ECG of 25-FEB-2021 15:37, No significant changes seen Assessment and Plan Assessment Anesthesia Assessment: Chart Reviewed Final Anesthetic Review Family History of Problems with Anesthesia: No History of Problems with Anesthesia: No
--- NOTE | 2021-08-04 08:43 | HO.ANESPROP2 ---
Documented by User: Darcy Miles NP 08/04/21 08:45 HPI - Anesthesia Eval Consult details Narrative: 46yo F for Upper Endoscopy with savory dilation under fluoroscopy s/p same 12/2020 with GA-ETT 7 [facility] Active Problems Active Problems: All Active Problems (Updated 06/07/21 @ 13:50 by LILLIANA White) Overweight (Acute) Chest pain (Acute) Excess skin (Acute) Frequent UTI (Acute) Reflux esophagitis (Acute) Morbid obesity due to excess calories (Acute) S/P laparoscopic sleeve gastrectomy (Acute) History of repair of hiatal hernia (Acute) Intestinal malabsorption following gastrectomy (Acute) Hiatal hernia (Acute) Past Medical History Medical History Anxiety Arthritis Back pain Binge eating disorder Body mass index (BMI) of 40.1 to 44.9 in adult KENISHA I (cervical intraepithelial neoplasia I) Depression Insomnia Migraines Ovarian cyst Preoperative examination Scoliosis Shortness of breath Vitamin B1 deficiency Vitamin D deficiency Family History Family History Father Colon cancer Mother No problems noted. Brother Obesity Brother Obesity Son No problems noted. Daughter No problems noted. Daughter No problems noted. Family history of problems with anesthesia: No Surgical History Surgical History History of arthroscopy of both knees History of cervical LEEP biopsy affecting care of mother, antepartum Hx of breast reduction, elective Hx of tubal ligation History of Problems with Anesthesia: No Social History Social History Household Members: Family Housing: Apartment Are you a primary medication care manager to a significant other at home: No Do you presently have visiting nurse or other home services: No Alcohol intake: never Patient Tobacco Use Status: Current everyday Tobacco user Tobacco use type: Cigarette Use of substances other than those prescribed or required for medical reasons: Yes Substance Use Type: Marijuana Are you DNR?: No Advance Directives: No Advance Directives Information Provided: Yes service: No Current occupational status: employed Meds Allergies Allergy/AdvReac Type Severity Reaction Status Date / Time No Known Allergies Allergy Verified 06/20/21 12:58 Home Medications Medication Instructions Recorded Confirmed Last Taken Type iron, carbonyl 15 mg chewable 15 mg PO DAILY 01/28/20 06/07/21 12/27/20 History tablet (Iron Chews) mecobalamin (vitamin B12) 1,000 1,000 mcg PO DAILY 03/18/20 06/07/21 12/27/20 History mcg chewable tablet quetiapine 25 mg tablet (Seroquel) 25 mg PO BEDTIME 07/20/20 06/07/21 12/27/20 History capsaicin 0.025 % topical cream 1 appl topical BID 02/27/21 06/07/21 Unknown History diclofenac sodium 1 % topical gel g topical 02/27/21 06/07/21 Unknown History quetiapine 100 mg tablet 100 mg PO BEDTIME 02/27/21 06/07/21 Unknown History sertraline 100 mg tablet 100 mg PO DAILY 02/27/21 06/07/21 Unknown History terbinafine HCl 250 mg tablet 250 mg PO DAILY 02/27/21 06/07/21 Unknown History mupirocin 2 % topical ointment topical DAILY 03/20/21 06/07/21 Unknown History dicyclomine 20 mg tablet 20 mg PO BID PRN 06/20/21 Unknown History tramadol 50 mg tablet 50 mg PO Q8H PRN pain 06/20/21 Unknown History Exam Exam Date and Time: August 04, 2021 0843 Pertinent Lab Results Pertinent Lab Results: Laboratory Tests 02/11/21 02/11/21 04:50 04:50 WBC 8.0 Hgb 12.5 Hct 38.2 Plt Count 281 Sodium 141 Potassium 3.9 Chloride 103 Carbon Dioxide 30 H BUN 10 Creatinine 0.72 Narrative Narrative: EKG 05/2021 Vent. Rate : 067 BPM ? ? Atrial Rate : 067 BPM ?? P-R Int : 096 ms? QRS Dur : 070 ms ? ? QT Int : 400 ms ? ? ? P-R-T Axes : 041 054 055 degrees ?? QTc Int : 422 ms ? Sinus rhythm with short NV Otherwise normal ECG When compared with ECG of 25-FEB-2021 15:37, No significant changes seen Assessment and Plan Assessment Anesthesia Assessment: Chart Reviewed Final Anesthetic Review Family History of Problems with Anesthesia: No History of Problems with Anesthesia: No Documented by User: Tiara Newton MD 08/07/21 08:44 PMF[facility] Past Medical History Medical History Anxiety Arthritis Back pain Binge eating disorder Body mass index (BMI) of 40.1 to 44.9 in adult KENISHA I (cervical intraepithelial neoplasia I) Depression Insomnia Migraines Ovarian cyst Preoperative examination Scoliosis Shortness of breath Vitamin B1 deficiency Vitamin D deficiency Family History Family History Father Colon cancer Mother No problems noted. Brother Obesity Brother Obesity Son No problems noted. Daughter No problems noted. Daughter No problems noted. Surgical History Surgical History History of arthroscopy of both knees History of cervical LEEP biopsy affecting care of mother, antepartum Hx of breast reduction, elective Hx of tubal ligation Social History Social History Household Members: Family Housing: Apartment Are you a primary medication care manager to a significant other at home: No Do you presently have visiting nurse or other home services: No Alcohol intake: never Patient Tobacco Use Status: Current everyday Tobacco user Tobacco use type: Cigarette Use of substances other than those prescribed or required for medical reasons: Yes Substance Use Type: Marijuana Are you DNR?: No Advance Directives: No Advance Directives Information Provided: Yes service: No Current occupational status: employed Meds Allergies Allergy/AdvReac Type Severity Reaction Status Date / Time No Known Allergies Allergy Verified 06/20/21 12:58 Home Medications Medication Instructions Recorded Confirmed Last Taken Type iron, carbonyl 15 mg chewable 15 mg PO DAILY 01/28/20 06/07/21 12/27/20 History tablet (Iron Chews) mecobalamin (vitamin B12) 1,000 1,000 mcg PO DAILY 03/18/20 06/07/21 12/27/20 History mcg chewable tablet quetiapine 25 mg tablet (Seroquel) 25 mg PO BEDTIME 07/20/20 06/07/21 12/27/20 History capsaicin 0.025 % topical cream 1 appl topical BID 02/27/21 06/07/21 Unknown History diclofenac sodium 1 % topical gel g topical 02/27/21 06/07/21 Unknown History quetiapine 100 mg tablet 100 mg PO BEDTIME 02/27/21 06/07/21 Unknown History sertraline 100 mg tablet 100 mg PO DAILY 02/27/21 06/07/21 Unknown History terbinafine HCl 250 mg tablet 250 mg PO DAILY 02/27/21 06/07/21 Unknown History mupirocin 2 % topical ointment topical DAILY 03/20/21 06/07/21 Unknown History dicyclomine 20 mg tablet 20 mg PO BID PRN 06/20/21 Unknown History tramadol 50 mg tablet 50 mg PO Q8H PRN pain 06/20/21 Unknown History Exam Height,Weight and Vital Signs: Height 5 ft 10 in Weight 74.843 kg Vital Signs Temp Pulse Resp BP Pulse Ox O2 Del Method 08/07/21 08:06 97 F 73 18 140/97 H 99 Room Air Airway Mallampati Class: I TM Dist: >3cm Neck ROM: Full Loose/Missing/Broken Teeth: No Heart: RRR Lungs: CTAB Assessment and Plan Assessment Anesthesia Assessment: Anesthesia Plan Discussed Final Anesthetic Review NPO: Yes ASA Class: III Final Preanesthetic Review: No Changes in Pt Med Stat, Meds/Allgs Chart Reviewed, Consent Obtained/Reviewed and Anes Risks/Benef Reviewed Patient Risk: Intermediate Procedure Risk: Low Assessment/Block/Sedation in SS: Assess/Block/Sedation-SS Anesthetic Plan Anesthetic Plan: GA Disposition: Standard PACU
--- NOTE | 2021-08-05 23:21 | MHC.SHP ---
Pre-Procedural Eval Section A Date of Service: 08/05/21 The patient is an INPATIENT: No The History & Physical has been completed within 30 days and I have reviewed it.: Yes Section B Chief Complaint: postprocedural status Relevant Family History (Specify if Yes): No Relevant Social History: None Present Medications: None Medical History: No relevant PMH History of Previous Operations: Relevant previous surgery/procedure and date(s) (sleeve gastrectomy) Allergies: Allergies Allergy/AdvReac Type Severity Reaction Status Date / Time No Known Allergies Allergy Verified 06/20/21 12:58 Review of Systems Sugical H&P ROS: Negative: Constitution, Cardiovascular, Respiratory, Neurological, Psychiatric, Hem-Onc, Allergic/Immunologic, Gastrointestinal, Genitourinary, Musculoskeletal, Integumentary, Endocrine and Eyes/Ears/Nose/Throat Exam Surgical H&P Exam: Normal: HEENT, Normal: Heart, Normal: Lungs, Normal: Extremities, Normal: Abdomen, Normal: Skin and Normal: Neurological Plan Diagnosis/Plan: Unchanged (EGD to dilate narrow area. Risks of bleeding and perforation were discussed. The patient is in agreement with the plan.) I have reviewed the history and physical and performed a pertinent physical examination on my patient. No changes have occurred unless specified.
[2021-08-07] VITALS (7 sets, daily range): BP systolic 105–140; BP diastolic 52–97; PULSE 52–73; RESP 16–18; TEMP 36.1–36.3; O2SAT 99–100; BMI 23.6
--- NOTE | ~2021-08-07 | FL_ITS ---
EXAMINATION: XR FLUOROSCOPY WITH IMAGES CLINICAL INFORMATION: Gastric dilatation procedure. COMPARISON: Upper GI series 12/14/2020, chest radiograph 08/07/2021 TECHNIQUE: Fluoroscopy performed by Dr. Chew. Fluoroscopy time: 1.0 minutes DAP: 3.21 Gycm2 Images: 2 FINDINGS: There are an endoscope seen in the lower thoracic esophagus and a guidewire in the region of the stomach. Overlying monitoring wires are also present and a metallic towel clamp. FL/FL guidance in OR IMPRESSION: Fluoroscopy for bariatric procedure.
--- NOTE | ~2021-08-07 | XR_ITS ---
EXAMINATION: XR CHEST CLINICAL INFORMATION: Rule out free air. Status post gastric dilation. COMPARISON: 05/12/2021 TECHNIQUE: Frontal view of the chest was obtained. FINDINGS: Lungs are clear. No focal consolidation or mass. Normal pulmonary vascularity. No pleural effusion or pneumothorax. Normal heart size. No pneumoperitoneum seen. XR/XR chest 1V IMPRESSION: No pneumoperitoneum seen.
--- NOTE | 2021-08-07 08:24 | P.BOP_ITS ---
Brief Operative Note Date of Service: 08/07/21 Post-op diagnosis: same (stricture proximal sleeve) Procedure: PREOPERATIVE DIAGNOSIS: GERD, s/p sleeve gastrectomy POSTOPERATIVE DIAGNOSIS: ?Same as above. 1) stricture mid-sleeve, 2) esophagitis, PROCEDURE: [id number] with biopsy and balloon dilation under fluoroscopy Surgeon: ?Lasha Chew M.D.. Ph.D. Senior Pl Sql Developer: None ? Anesthesia: IV sedation Estimated blood loss: ?Minimal FINDINGS AND PROCEDURE: ? OPERATIVE INDICATIONS: ?The patient is a 46 year old female known to me who underwent a laparoscopic sleeve gastrectomy by Dr. Luis on 07/06/2020. The patient had remarkable weight loss so far and had a completely uneventful recovery.? The patient is reporting persistent nausea and vomiting sinc eher surgery particularly with solids. UGI did not show any contrast hold up but showed significant GERD. She continues to have symptoms despite previous pneumatic dilation. Based on this information I recommended an upper endoscopy to evaluate the patient's symptoms. Risks and complications of the surgery were discussed with the patient in advance particularly the possibility of perforation or bleeding that may require surgical intervention. The patient understood the risks and was in agreement with the plan. ? PROCEDURE: After informed consent was obtained by the patient, the patient was ?transferred to the Operating Room and was placed in the supine position.? After successful induction of IV sedation, a mouth block was inserted and the patient was placed in the left lateral decubitus position. An upper endoscopy was performed next, the oropharynx and esophagus appeared within the normal limits. There was no hiatal hernia. The z-line was irregular with tongues of gastric mucosa protruding into the esophagus in less than 50% circumference. There was no narrowing at the GE junction. Approximately? 2-3 cm distal to the GE junction there was a relatively narrow segment of 2-3cm long of sleeve in which the lumen is significantly more narrow compared to the remaining sleeve. This area does not open up with air inflation and requires considerable difficulty for the scope to get through. The small size scope does pass through eventually. I initiially attempted dilation with the Savory dilators under a guide wire. Unfortunately the metalic guide wire availoable was not ideal for this as the dilator was not sliding well. Therefore a balloon dilation 16mm, 18mm and 20mm was performed under fluoroscopy for 1 minute at each time. There was some improvement in the appearance of the stricture post-dilation. There was some gastritis at distal antrum and a biopsy was performed.. There was no ulcer. Biopsy were obtained from the distal antrum. No significant bleeding was noted from the biopsy site or the area of balloon dilation.. At that point? the sleeve were decompressed and the scope was withdrawn from the patient's mouth. The patient extubated and was transferred in stable condition to the Recovery Room for further care. I was present and performed all steps of the procedure. There were no residents to assist with this case. Lasha Chew M.D., Ph.D. Surgeon: Aki Chew MD Surgeon: Aki Chew MD Anesthesia: MAC Was an Senior Pl Sql Developer used for this Procedure?: No Estimated blood loss (mL): 0 IV fluids (mL): 400 Urine output (mL): 0 Pathology: none sent Condition: stable Disposition: PACU
[2021-08-07] MEDS: Lactated Ringers 1,000 ML 100 ML IVCONT (08:41)
== END 2021-08-07 11:42 | disposition home or self-care (01) ==
PROVIDERS: Visit Provider Surgery
PROC: 0DJ08ZZ Inspection of Upper Intestinal Tract, Via Natural or Artificial Opening Endoscopic (ICD-10-PCS; CPT 43235; principal; 2021-08-07 08:20)
DX: K95.89 Other complications of other bariatric procedure (principal); K31.2 Hourglass stricture and stenosis of stomach; R11.2 Nausea with vomiting, unspecified; Y84.8 Other medical procedures as the cause of abnormal reaction of the patient, or of later complication, without mention of misadventure at the time of the procedure; Y92.9 Unspecified place or not applicable; Z90.3 Acquired absence of stomach [part of]; K21.9 Gastro-esophageal reflux disease without esophagitis; K20.90 Esophagitis, unspecified without bleeding
CPT/HCPCS: 43245; 43239; 71045; C1726; C1769; J0330; J2405; J3010

== ENCOUNTER → 2021-09-21 09:12 | Outpatient (BNVA) | payer MEDICAID, SELFPAY | PROVIDERS: Visit Provider Physician Assistant Surgical | DX: K91.2 Postsurgical malabsorption, not elsewhere classified (principal); Z98.84 Bariatric surgery status; Z90.3 Acquired absence of stomach [part of] | CPT/HCPCS: 99212 ==

== ENCOUNTER → 2021-10-02 12:00 | Outpatient (BNVA) | payer MEDICAID, SELFPAY | PROVIDERS: Referring Provider Physician Assistant Surgical; Visit Provider Dietitian, Registered | DX: E66.3 Overweight (principal); K90.49 Malabsorption due to intolerance, not elsewhere classified; E51.9 Thiamine deficiency, unspecified; E55.9 Vitamin D deficiency, unspecified; F50.81 Binge eating disorder; Z68.41 Body mass index [BMI] 40.0-44.9, adult; Z90.3 Acquired absence of stomach [part of] | CPT/HCPCS: 97803 ==

== ENCOUNTER 2021-11-07 11:12 | Outpatient (AMB) | payer MEDICAID, SELFPAY ==
--- NOTE | 2021-11-03 14:11 | MHC.OFFVIS ---
Intake Intake Visit Reasons: Urinary tract infection Intake Note: Patient is present for Urinary Tract Infection Currently on Antibiotics: no Patient states that she thinks she may have a uti or yeast infection. States that she does experience some burning. Patient had recently lost a lot of weight, Past weight 300 lbs. 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 She is seen for following urologic conditions - recurring urinary tract infection Encouraged adequate fluid intake Discussed constipation Currently stable Recurrent UTI Previous treatment with combination clindamycin and Augmentin Microgen 03/04 prevotella, staph PFSH Medical History Anxiety Arthritis Back pain Binge eating disorder Body mass index (BMI) of 40.1 to 44.9 in adult KENISHA I (cervical intraepithelial neoplasia I) Depression Frequent UTI Hiatal hernia Insomnia Intestinal malabsorption following gastrectomy Migraines Ovarian cyst Preoperative examination Scoliosis Shortness of breath Vitamin B1 deficiency Vitamin D deficiency Surgical History History of arthroscopy of both knees History of cervical LEEP biopsy affecting care of mother, antepartum History of repair of hiatal hernia Hx of breast reduction, elective Hx of tubal ligation S/P laparoscopic sleeve gastrectomy Family History Father Colon cancer Mother No problems noted. Brother Obesity Brother Obesity Son No problems noted. Daughter No problems noted. Daughter No problems noted. Social History Household Members: Family Housing: Apartment Are you a primary reproductive healthcare assistant to a significant other at home: No Do you presently have visiting nurse or other home services: No 75 years or older and lives alone: No Alcohol intake: current Alcohol intake frequency: holidays/special occasions only Patient Tobacco Use Status: Current everyday Tobacco user Tobacco use type: Cigarette Cigarettes Per Day: 6 Substance Use Type: Marijuana service: No Current occupational status: employed Review of Systems Const Denies chills and Denies fever(s) Card Reports no additional complaints and Denies syncope Resp Denies cough GI Denies abdominal pain and Denies heartburn Reports as per HPI and Denies change in libido Neuro Denies syncope Psych Denies change in libido Endo Denies change in libido Physical Exam Const General: cooperative, healthy appearing, comfortable and no acute distress Orientation/consciousness: patient oriented x3 HEENT Face and sinus: Yes normal facial exam Mouth: moist mucous membranes Neck Neck: Yes normal visual inspection, Yes full ROM and Yes trachea midline Chest Chest palpation & inspection: normal inspection of the chest Resp Effort & Inspection: normal respiratory effort, able to speak in complete sentences and no respiratory distress GI Inspection: Yes normal to inspection Back/Spine/Pelvis Cervical Spine: normal cervical lordosis Thoracic/Lumbar Spine: thoracic and lumbar spine normal to inspection Skin General skin exam: no rashes or lesions noted Neuro General: patient oriented x3, gait normal, tone normal and moves all extremities Extrem General: Yes normal to inspection and Yes capillary refill normal Results AMB Urinalysis, Automated UA Leukoctes 0 Ricardo/uL Last Edit by Lidya Sears [facility] on 11/07/21 11:34 UA Nitrite Positive Last Edit by Lidya Sears [facility] on 11/07/21 11:34 UA Urobilinogen 0.2 mg/dL Last Edit by Lidya Sears [facility] on 11/07/21 11:34 UA Protein 0 mg/dL Last Edit by Lidya Sears [facility] on 11/07/21 11:34 UA pH 6.0 Last Edit by Lidya Sears [facility] on 11/07/21 11:34 UA Blood 0 Edmar/uL Last Edit by Lidya Sears [facility] on 11/07/21 11:34 UA Specific [place] 1.020 Last Edit by Lidya Sears [facility] on 11/07/21 11:34 UA Ketone Negative Last Edit by Lidya Sears [facility] on 11/07/21 11:34 UA Bilirubin 0 mg/dL Last Edit by Lidya Sears [facility] on 11/07/21 11:34 UA Glucose 0 mg/dL Last Edit by Lidya Sears [facility] on 11/07/21 11:34 Results Reviewed Results Reviewed: Laboratory Last Values Urine pH (Auto) 6.0 11/07/21 11:22 Specific [place] (Auto) 1.020 11/07/21 11:22 Urine Protein (Auto) 0 mg/dL 11/07/21 11:22 Glucose (UA)(Auto) 0 mg/dL 11/07/21 11:22 Urine Ketones (Auto) Negative 11/07/21 11:22 Urine Blood (Auto) 0 Edmar/uL 11/07/21 11:22 Urine Nitrite (Auto) Positive 11/07/21 11:22 Urine Bilirubin (Auto) 0 mg/dL 11/07/21 11:22 Urine Urobilinogen (Auto) 0.2 mg/dL 11/07/21 11:22 Leukocyte Esterase (Auto) 0 Ricardo/uL 11/07/21 11:22 Assessment & Plan Assessment & Plan (1) Frequent UTI: Code(s): N39.0 - Urinary tract infection, site not specified Plan UTI Levaquin with fluconazole Orders: Orders Urine Culture 11/07/21 N39.0 - Urinary tract infection, site not specified AMB Urinalysis Automated 11/07/21 Z13.9 - Encounter for screening, unspecified Medications: New levofloxacin 500 mg PO DAILY 3 tabs 0RF 3 days N39.0 - Urinary tract infection, site not specified, 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 No major barriers to patient understanding were identified. An opportunity to ask questions regarding the treatment plan was provided. All questions were answered. The patient expressed understanding and agreement with the above treatment plan. The patient is aware they should contact our office by phone for worsening of their current condition or the appearance of new urologic symptoms. Compliance is encouraged with any medications and followup testing that is ordered. It is a privilege to participate in the urologic care of your patient. If you have any questions or concerns regarding treatment for the above conditions, or other urologic issues, please do not hesitate to contact me. The office telephone contact is [phone]. This note is constructed using voice recognition software. While every effort has been made to ensure accuracy field care advocate errors may have been included. Yours sincerely, Dr Jose Travis MD, [facility] - Urology Providers of Expert, Compassionate Care for the Genitourinary System Coding Level of Care Code Est Pt Level 4 (21870) Diagnoses Frequent UTI N39.0
== END 2021-11-07 11:54 | disposition home or self-care (01) ==
LOC: HO.HUSH 11:12
PROVIDERS: Visit Provider Urology
DX: N39.0 Urinary tract infection, site not specified (principal)
CPT/HCPCS: 99214

== ENCOUNTER → 2021-11-07 11:12 | Outpatient (BNVA) | payer MEDICAID, SELFPAY | PROVIDERS: Visit Provider Urology | DX: N39.0 Urinary tract infection, site not specified (principal); B49 Unspecified mycosis | CPT/HCPCS: 99212 ==

== ENCOUNTER 2021-11-07 11:30 | Outpatient (REF) | payer MEDICAID, SELFPAY | END 2021-11-07 11:31 | disposition home or self-care (01) | LOC: HO.LAB 11:30 | PROVIDERS: Visit Provider Urology | DX: N39.0 Urinary tract infection, site not specified (principal) | CPT/HCPCS: 87086; 87088; 87186; 99212 ==

== ENCOUNTER → 2021-11-15 13:36 | Outpatient (BNVA) | payer MEDICAID, SELFPAY | PROVIDERS: Visit Provider Physician Assistant Surgical | DX: L98.7 Excessive and redundant skin and subcutaneous tissue (principal); Z98.84 Bariatric surgery status | CPT/HCPCS: 99212 ==

== ENCOUNTER 2021-12-06 11:43 | Emergency (ER) | payer MEDICAID, SELFPAY ==
--- NOTE | ~2021-12-06 | XR_ITS ---
EXAMINATION: XR CHEST CLINICAL INFORMATION: Chest pain and shortness of breath COMPARISON: 08/07/2021 TECHNIQUE: Frontal view of the chest was obtained. FINDINGS: No significant abnormality is noted involving the heart, lungs, mediastinum, bony thorax or soft tissues. XR/XR chest 1V IMPRESSION: Unremarkable examination with no interval change.
[2021-12-06 12:33] VITALS: BP 122/78; PULSE 75; RESP 16; TEMP 36.4; O2SAT 99; BMI 25.0
--- NOTE | 2021-12-06 12:38 | ECG_ITS ---
Test Reason : cp,sob Blood Pressure : / mmHG Vent. Rate : 065 BPM Atrial Rate : 065 BPM P-R Int : 120 ms QRS Dur : 074 ms QT Int : 394 ms P-R-T Axes : 044 053 048 degrees QTc Int : 409 ms Normal sinus rhythm Normal ECG When compared with ECG of 12-MAY-2021 16:35, No significant change was found Referred By: Generic ED Physician Electronically Signed By:CIARA FRANKS MD
[2021-12-06 12:55] LABS: MANUAL DIFF FLAG NO
[2021-12-06 12:56] LABS: Basophils Percent Auto 0.4 % (0-2); Eosinophils Percent Auto 0.9 % (0-4); Hematocrit 36.4 % (37.0-47.0); Hemoglobin 11.9 g/dl (12.0-16.0); Imm Gran Abs Auto 0.01 X10*3/uL (0.00-0.03); Imm Gran Pct Auto 0.2 % (0.0-0.4); Lymphocytes Absolute Auto 1.6 X10*3/uL (1.2-4.9); Lymphocytes Percent Auto 34.9 % (20-40); Mean Corpuscular HGB Conc 32.7 g/dl (31.0-35.0); Mean Corpuscular Hemoglobin 27.4 pg (27.0-33.0); Mean Corpuscular Volume 83.7 fL (80.0-98.0); Mean Platelet Volume 9.7 fL (9.4-12.3); Monocytes Absolute Auto 0.4 X10*3/uL (0.1-1.2); Monocytes Percent Auto 8.7 % (2-11); Neutrophils Absolute Auto 2.5 x10*3/uL (2.0-8.3); Neutrophils Percent Auto 54.9 % (45-73); Platelet Count 243 X10*3/uL (160-400); Red Blood Count 4.35 X10*6/uL (4.20-5.50); Red Cell Distribution Width 14.9 % (11.0-16.0); White Blood Count 4.5 X10*3/uL (4.8-10.8)
[2021-12-06 13:23] LABS: Anion Gap 12 (12-20); Blood Urea Nitrogen 11 mg/dL (9-16); Calcium 8.9 mg/dL (8.4-10.2); Carbon Dioxide 26 mmol/L (22-29); Chloride 105 mmol/L (96-108); Creatinine Clr Calc Pharmacy 123.2; Estimated Glomerular Filt Rate > 60; Glucose Random 87 mg/dL (60-115); Potassium 4.3 mmol/L (3.3-5.1); Sodium 139 mmol/L (135-145)
[2021-12-06 13:31] LABS: Troponin-I High Sensitivity < 3.5 ng/L (<3.5-17.0)
== END 2021-12-06 18:48 | disposition left against medical advice (07) ==
PROVIDERS: Emergency Provider Emergency Medicine
DX: R53.1 Weakness (principal); R06.02 Shortness of breath; Z98.84 Bariatric surgery status
CPT/HCPCS: 36415; 71045; 80048; 84484; 85025; 93005; 99283

== ENCOUNTER → 2022-01-08 12:52 | Outpatient (BNVA) | payer MEDICAID, SELFPAY | PROVIDERS: Visit Provider Physician Assistant Surgical | DX: L98.7 Excessive and redundant skin and subcutaneous tissue (principal); Z98.84 Bariatric surgery status; Z98.890 Other specified postprocedural states; Z87.19 Personal history of other diseases of the digestive system | CPT/HCPCS: 99212 ==

== ENCOUNTER 2022-02-01 12:18 | Emergency (ER) | payer MEDICAID, SELFPAY ==
[2022-02-01 12:49] VITALS: BP 126/81; PULSE 58; RESP 20; TEMP 36.4; O2SAT 97; BMI 24.7
--- NOTE | 2022-02-01 12:50 | ECG_ITS ---
Test Reason : SOB Blood Pressure : / mmHG Vent. Rate : 120 BPM Atrial Rate : 120 BPM P-R Int : 116 ms QRS Dur : 070 ms QT Int : 316 ms P-R-T Axes : 056 023 024 degrees QTc Int : 446 ms Sinus tachycardia with Fusion complexes Otherwise normal ECG When compared with ECG of 06-DEC-2021 12:44, Fusion complexes are now Present Vent. rate has increased BY 55 BPM Referred By: Ruth Hensley Electronically Signed By:Tyler Skaggs
--- NOTE | 2022-02-01 12:53 | ED_ITS ---
HPI - General Adult General Chief complaint: Skin/Abscess/Foreign Body <LILLIANA Grimes - Last Filed: 02/05/22 12:30> Stated complaint: Chest Discomfort Foot/Leg Pain <LILLIANA Grimes - Last Filed: 02/05/22 12:30> Time Seen by Provider: 02/01/22 14:11 <LILLIANA Grimes - Last Filed: 02/05/22 12:30> History of Present Illness HPI narrative: 46-year-old female with a past medical history of reflux esophagitis, frequent UTIs, morbid obesity s/p laparoscopic sleeve gastrectomy with intestinal malabsorption following gastrectomy presents to the emergency department today complaining of multiple bruises on her lower extremities specifically on the medial left calf that she describes as a bubble that is tender to the touch with bruising around it. She is also complaining of intermittent chest pain with shortness of breath. She states she has lost several lb over the past month without dieting. She states she is concerned that she may have an underlying illness causing the bruising. She denies any physical abuse or trauma. She denies any vitamin deficiencies states that she is followed by a dive master, she denies any known connective tissue disease, platelet abnormalities, or coagulation disorders. She endorses frequent migraine headaches which she states she currently has a migraine. She is also concerned that she is having worsening of her vision as her fleet service manager recommended bifocal prescription glasses. She denies any recent illness, fever, chills, diarrhea, constipation, or sick contacts. <Ruth Hensley NP - Last Filed: 02/01/22 18:07> Related Data Home medications: Home Medications Medication Instructions Recorded Confirmed iron, carbonyl 15 mg chewable 15 mg PO DAILY 01/28/20 01/08/22 tablet (Iron Chews) capsaicin 0.025 % topical cream 1 appl topical BID 02/27/21 01/08/22 diclofenac sodium 1 % topical gel g topical 02/27/21 01/08/22 quetiapine 100 mg tablet 100 mg PO BEDTIME 02/27/21 01/08/22 sertraline 100 mg tablet 100 mg PO DAILY 02/27/21 01/08/22 mupirocin 2 % topical ointment topical DAILY 03/20/21 01/08/22 dicyclomine 20 mg tablet 20 mg PO BID PRN 06/20/21 01/08/22 Previous Rx's Medication Instructions Recorded clotrimazole 1 % topical cream 1 appl topical BID #45 grams 01/08/22 sucralfate 100 mg/mL oral 10 ml PO BID #420 mL 01/08/22 suspension (Carafate) calcium citrate 315 mg-vitamin D3 1 tab PO BID #60 tabs 01/23/22 5 mcg (200 unit) tablet [id number] 45 mg-folic 1 cap PO .daily in evening #90 caps 01/23/22 acid 800 mcg-vit K 120 mcg capsule (Bariatric Multivitamins) <LILLIANA Grimes - Last Filed: 02/05/22 12:30> Allergies/adverse reactions: Allergies Allergy/AdvReac Type Severity Reaction Status Date / Time No Known Allergies Allergy Verified 01/08/22 13:06 <LILLIANA Grimes - Last Filed: 02/05/22 12:30> Review of Systems Review of Systems: In addition to documented HPI above, the additional ROS was obtained: Constitutional: No Fever, No Chills ENT/Mouth: No Ear Pain, No Nasal Congestion, No Sinus Pain, No Hoarseness, No sore throat, No Rhinorrhea, No Swallowing Difficulty Cardiovascular: No edema Respiratory: No Cough, No Sputum, No Wheezing Gastrointestinal: No Nausea, No Vomiting, No Diarrhea, No Constipation, No Abdominal pain Genitourinary: No Dysuria, No Urinary Frequency, No Hematuria, No Urinary Incontinence/retention, No Urgency, No Flank Pain Musculoskeletal: No joint pain, No Myalgias, No Joint Swelling Skin: No Skin Lesions, No rash Neuro: No Weakness, No Numbness, No Paresthesias <Ruth Hensley NP - Last Filed: 02/01/22 18:07> Yes all other systems are reviewed and are negative <Ruth Hensley NP - Last Filed: 02/01/22 18:07> [facility] Past Medical History Attestation statement: The following information was validated with the patient. <Ruth Hensley NP - Last Filed: 02/01/22 18:07> Source: old records reviewed <Ruth Hensley NP - Last Filed: 02/01/22 18:07> Medical History: Medical History Anxiety Arthritis Back pain Binge eating disorder Body mass index (BMI) of 40.1 to 44.9 in adult KENISHA I (cervical intraepithelial neoplasia I) Depression Frequent UTI Hiatal hernia Insomnia Intestinal malabsorption following gastrectomy Migraines Ovarian cyst Preoperative examination Scoliosis Shortness of breath Vitamin B1 deficiency Vitamin D deficiency <LILLIANA Grimes - Last Filed: 02/05/22 12:30> Surgical History: Surgical History History of arthroscopy of both knees History of cervical LEEP biopsy affecting care of mother, antepartum History of repair of hiatal hernia Hx of breast reduction, elective Hx of tubal ligation S/P laparoscopic sleeve gastrectomy <LILLIANA Grimes - Last Filed: 02/05/22 12:30> Family History Family History: Family History Father Colon cancer Mother No problems noted. Brother Obesity Brother Obesity Son No problems noted. Daughter No problems noted. Daughter No problems noted. <LILLIANA Grimes - Last Filed: 02/05/22 12:30> Social History Social History: Social History Household Members: Family Housing: Apartment Are you a primary medicare compliance auditor to a significant other at home: No Do you presently have visiting nurse or other home services: No Alcohol intake: current Alcohol intake frequency: holidays/special occasions only Patient Tobacco Use Status: Current everyday Tobacco user Tobacco use type: Cigarette Cigarettes Per Day: 6 Substance Use Type: Marijuana service: No Current occupational status: employed <LILLIANA Grimes - Last Filed: 02/05/22 12:30> Physical Exam ED Vital Signs: Vital Signs - 24 hr 02/01/22 12:49 02/01/22 15:06 02/01/22 18:01 Temperature 97.5 F 98.0 F Pulse Rate 58 66 78 Respiratory Rate 20 18 18 Blood Pressure 126/81 115/85 111/70 Pulse Oximetry 97 100 100 Oxygen Delivery Method Room Air Room Air Room Air BMI result Body Mass Index 24.7 <LILLIANA Grimes - Last Filed: 12/26/22 12:30> Vital Signs - 24 hr 02/01/22 12:49 02/01/22 15:06 02/01/22 18:01 Temperature 97.5 F 98.0 F Pulse Rate 58 66 78 Respiratory Rate 20 18 18 Blood Pressure 126/81 115/85 111/70 Pulse Oximetry 97 100 100 Oxygen Delivery Method Room Air Room Air Room Air BMI result Body Mass Index 24.7 <Ruth Hensley NP - Last Filed: 02/01/22 18:07> Const General: cooperative, alert and awake <Ruth Hensley NP - Last Filed: 02/01/22 18:07> Nutritional Appearance: well nourished <Ruth Hensley NP - Last Filed: 02/01/22 18:07> Orientation/consciousness: patient oriented x3 <Ruth Hensley NP - Last Filed: 02/01/22 18:07> Limitations: no limitations <Ruth Hensley NP - Last Filed: 02/01/22 18:07> HENDE Head: Yes normal to inspection, Yes normocephalic and Yes atraumatic <Ruth Hensley NP - Last Filed: 02/01/22 18:07> Ears: hearing grossly normal bilaterally and external ears normal <Ruth Hensley NP - Last Filed: 02/01/22 18:07> General nose exam: Normal external nose present and Normal nares present <Ruth Hensley NP - Last Filed: 02/01/22 18:07> Face and sinus: Yes normal facial exam and Yes face symmetric <Ruth Hensley NP - Last Filed: 02/01/22 18:07> Mouth: Normal oral and palatal mucosa present <Ruth Hensley NP - Last Filed: 02/01/22 18:07> Teeth and gingiva: dentition normal <Ruth Hensley NP - Last Filed: 02/01/22 18:07> Throat: Yes posterior oropharynx normal and Yes uvula midline <Ruth Hensley NP - Last Filed: 02/01/22 18:07> Eyes General: appearance normal, both eyes and all related structures <Ruthraine Hensley [employer] - Last Filed: 02/01/22 18:07> Visual Pace: normal visual pace by confrontation <Ruth Hensley [employer] - Last Filed: 02/01/22 18:07> Alignment and Position: alignment normal <Ruthmelia Hensley [employer] - Last Filed: 02/01/22 18:07> Periorbital: periorbital findings normal <Ruth Hensley, [employer] - Last Filed: 02/01/22 18:07> Eyelids: Yes eyelids normal <Ruthraine Hensley, [employer] - Last Filed: 02/01/22 18:07> Conjunctivae: conjunctivae normal <Ruth Hensley, [employer] - Last Filed: 02/01/22 18:07> Sclerae: sclerae normal <Ruthraine Hensley, [employer] - Last Filed: 02/01/22 18:07> Corneas: corneas normal <Ruth Hensley, [employer] - Last Filed: 02/01/22 18:07> Pupils: Equal, round and reactive pupils present <Ruth Hensley [employer] - Last Filed: 02/01/22 18:07> EOM: EOMs intact bilaterally <Ruth Hensley, [employer] - Last Filed: 02/01/22 18:07> Neck Neck: Yes normal visual inspection, Yes full ROM and Yes no lymphadenopathy <Ruth Hensley, [employer] - Last Filed: 02/01/22 18:07> Thyroid: Thyroid normal <Ruth Hensley [employer] - Last Filed: 02/01/22 18:07> Chest Chest palpation & inspection: normal inspection of the chest <Ruth Hensley [employer] - Last Filed: 02/01/22 18:07> Resp Effort & Inspection: normal respiratory effort, no cough and not labored <Ruth Hensley [employer] - Last Filed: 02/01/22 18:07> Auscultation: clear to auscultation bilaterally, no crackles, no rhonchi and no wheezes <Ruth Hensley [employer] - Last Filed: 02/01/22 18:07> Cardio Rate: regular rate <Ruth Sulaimankimmy, [employer] - Last Filed: 02/01/22 18:07> Rhythm: regular rhythm <Ruth Sulaimankimmy, [employer] - Last Filed: 02/01/22 18:07> GI Inspection: Yes normal to inspection, Yes Abdominal panniculus present and Yes striae <Ruth Sulaimankimmy, [employer] - Last Filed: 02/01/22 18:07> Palpation (GI): Soft to palpation and nontender <Ruth Ayden, [employer] - Last Filed: 02/01/22 18:07> Auscultation: normal bowel sounds <Ruth Pluckimmy, [employer] - Last Filed: 02/01/22 18:07> Back/Spine/Pelvis Cervical Spine: cervical ROM normal <Ruth Sulaimankimmy, [employer] - Last Filed: 02/01/22 18:07> Thoracic/Lumbar Spine: thoraco-lumbar ROM normal <Ruth Ayden, [employer] - Last Filed: 02/01/22 18:07> Skin General skin exam: no rashes or lesions noted <Ruth Sulaimanjohnrufino, [employer] - Last Filed: 02/01/22 18:07> Hair: normal <Ruth Pllilijohnrufino, [employer] - Last Filed: 02/01/22 18:07> Neuro General: patient oriented x3, tone normal and moves all extremities <Ruth Ayden, [employer] - Last Filed: 02/01/22 18:07> Cranial nerves: Yes Equal, round and reactive pupils present, Yes Normal facial strength present and Yes Midline tongue present <Ruth Ayden, [employer] - Last Filed: 02/01/22 18:07> Cognition (Neuro): normal cognition <Ruth Pluckimmy, [employer] - Last Filed: 02/01/22 18:07> Gait exam (Neuro): Normal gait present <Ruth Ayden, [employer] - Last Filed: 02/01/22 18:07> Motor exam (neuro): 5/5 motor strength present throughout <Ruth Raduuckimmy, [employer] - Last Filed: 02/01/22 18:07> Extrem Right upper extremity: normal to inspection, full ROM and normal capillary refill <Ruth Pluciennik, [employer] - Last Filed: 02/01/22 18:07> Left upper extremity: normal to inspection, full ROM and normal capillary refill <Ruth Hensley NP - Last Filed: 02/01/22 18:07> Right lower extremity: full ROM, normal capillary refill and lower leg (several bruises in various stages of healing) Details: tenderness <Ruth Hensley NP - Last Filed: 02/01/22 18:07> Left lower extremity: full ROM, normal capillary refill and lower leg Details: tenderness and ecchymosis (several bruises in various stages of healing) <Ruth Hensley NP - Last Filed: 02/01/22 18:07> Psych Appearance: grossly normal <Ruth Hensley NP - Last Filed: 02/01/22 18:07> Mental Status: mental status grossly normal <Ruth Hensley NP - Last Filed: 18:07> Speech and movement: Normal speech and movement present <Ruth Hensley [employer] - Last Filed: 02/01/22 18:07> Affect: normal affect <Ruth Hensley NP - Last Filed: 02/01/22 18:07> Attitude: cooperative <Ruth Hensley NP - Last Filed: 02/01/22 18:07> Thought process: Normal thought process present <Ruth Hensley NP - Last Filed: 02/01/22 18:07> Thought content: Normal thought content present <Ruth Hensley NP - Last Filed: 02/01/22 18:07> Insight: Good insight present (Psych) <Ruth Hensley NP - Last Filed: 02/01/22 18:07> Judgement: Good judgement present (Psych) <Ruth Hensley NP - Last Filed: 02/01/22 18:07> Course Course Course Narrative: RME: patient presents to the ED for bruising on left lower leg/ and calf pain. patient states history of easy bruising and her Doctors can not figure out. patient denies any trauma to left lower extremities. patient states also chest pain and feeling shaking. patient states history of anxety. left leg has one bruise on calf near area of varicose veins. patient has normal gait and pedal pulses of extremities intact. labs, xray. venous doppler odered. Vital signs stable <LILLIANA Grimes - Last Filed: 02/05/22 12:30> Medical Decision Making Medical Decision Making [facility] Narrative: 46-year-old female with a past medical history of reflux esophagitis, frequent UTIs, morbid obesity s/p laparoscopic sleeve gastrectomy with intestinal malabsorption following gastrectomy presents to the emergency department today complaining of multiple bruises on her lower extremities specifically on the medial left calf that she describes as a bubble that is tender to the touch with bruising around it. Ultrasound LLE with no DVT demonstrated, small subcutaneous mass in the medial calf which could be small lipoma or possibly a sebaceous cyst radiology recommended clinical follow-up. X-ray left tibia/fibula with no fracture or malalignment noted. Blood work unremarkable. Serology negative for flu, RSV, COVID-19. EKG normal sinus rhythm. Chest x-ray unremarkable. Low suspicion for pneumonia, DVT, bleeding disorders, thrombocytopenia, based on physical exam and diagnostics. Patient is safe for discharge to follow-up with [place] [facility], neurology, and her primary care provider for further treatment and management. HPI, P, diagnostics, and plan discussed with patient with no unanswered questions at this time. Educated to return to the emergency department with new or worsening numbness, tingling, weakness, shortness of breath, chest pain, headache, or any other concerning emergent symptom. <Ruth Hensley NP - Last Filed: 02/01/22 18:07> Lab Data [facility] Lab Attestation statement: I reviewed the patient's lab results. <Ruth Hensley NP - Last Filed: 02/01/22 18:07> Result Diagrams: : 02/01/22 13:32 02/01/22 13:32 <LILLIANA Grimes - Last Filed: 02/05/22 12:30> Labs: Lab Results 02/01/22 02/01/22 02/01/22 Range/Units 13:31 13:31 13:32 WBC 5.7 (4.8-10.8) X10*3/uL RBC 4.24 (4.20-5.50) X10*6/uL Hgb 11.6 L (12.0-16.0) g/dl Hct 35.9 L (37.0-47.0) % MCV 84.7 (80.0-98.0) fL MCH 27.4 (27.0-33.0) pg MCHC 32.3 (31.0-35.0) g/dl RDW 14.6 (11.0-16.0) % Plt Count 245 (160-400) X10*3/uL MPV 9.7 (9.4-12.3) fL Immature Gran % (Auto) 0.2 (0.0-0.4) % Neut % (Auto) 57.2 (45-73) % Lymph % (Auto) 32.8 (20-40) % [place] % (Auto) 8.4 (2-11) % Eos % (Auto) 0.9 (0-4) % Baso % (Auto) 0.5 (0-2) % Lymph # (Auto) 1.9 (1.2-4.9) X10*3/uL [place] # (Auto) 0.5 (0.1-1.2) X10*3/uL Eos # (Auto) 0.1 (0.0-0.4) X10*3/uL Baso # (Auto) 0.0 (0.0-0.2) X10*3/uL Abs Immat Gran (auto) 0.01 (0.00-0.03) X10*3/uL Absolute Neuts (auto) 3.3 (2.0-8.3) x10*3/uL Absolute Nucleated RBC 0.000 (0.0-0.012) X10*3/uL Nucleated RBC % (auto) 0.0 (0.0-0.2) /100WBC ESR (0-20) MM/HR PT (10.0-13.1) SEC INR (0.9-1.1) APTT (26.0-36.4) SEC Sodium (135-145) mmol/L Potassium (3.3-5.1) mmol/L Chloride (96-108) mmol/L Carbon Dioxide (22-29) mmol/L Anion Gap (12-20) BUN (9-16) mg/dL Creatinine (0.5-1.4) mg/dL Estim Creat Clear Calc Estimated GFR Random Glucose (60-115) mg/dL Calcium (8.4-10.2) mg/dL Total Bilirubin (0.0-1.0) mg/dL AST (5-31) U/L ALT (0-31) U/L Alkaline Phosphatase (39-117) U/L Troponin I High Sens (<3.5-17.0) ng/L C-Reactive Protein (< or = 0.50) mg/dL B-Natriuretic Peptide 69 (<100) pg/mL Total Protein (6.5-8.0) g/dL Albumin (3.5-5.0) g/dL Influenza Type A (PCR) NEGATIVE (Negative) Influenza Type B (PCR) NEGATIVE (Negative) RSV RNA Qual (PCR) NEGATIVE (Negative) SARS-CoV-2 RNA (RT-PCR) NEGATIVE (Negative) 02/01/22 02/01/22 02/01/22 Range/Units 13:32 13:32 13:32 WBC (4.8-10.8) X10*3/uL RBC (4.20-5.50) X10*6/uL Hgb (12.0-16.0) g/dl Hct (37.0-47.0) % MCV (80.0-98.0) fL MCH (27.0-33.0) pg MCHC (31.0-35.0) g/dl RDW (11.0-16.0) % Plt Count (160-400) X10*3/uL MPV (9.4-12.3) fL Immature Gran % (Auto) (0.0-0.4) % Neut % (Auto) (45-73) % Lymph % (Auto) (20-40) % [place] % (Auto) (2-11) % Eos % (Auto) (0-4) % Baso % (Auto) (0-2) % Lymph # (Auto) (1.2-4.9) X10*3/uL [place] # (Auto) (0.1-1.2) X10*3/uL Eos # (Auto) (0.0-0.4) X10*3/uL Baso # (Auto) (0.0-0.2) X10*3/uL Abs Immat Gran (auto) (0.00-0.03) X10*3/uL Absolute Neuts (auto) (2.0-8.3) x10*3/uL Absolute Nucleated RBC (0.0-0.012) X10*3/uL Nucleated RBC % (auto) (0.0-0.2) /100WBC ESR (0-20) MM/HR PT 11.0 (10.0-13.1) SEC INR 1.0 (0.9-1.1) APTT 30.3 (26.0-36.4) SEC Sodium 140 (135-145) mmol/L Potassium 4.0 (3.3-5.1) mmol/L Chloride 105 (96-108) mmol/L Carbon Dioxide 29 (22-29) mmol/L Anion Gap 10 L (12-20) BUN 19 H (9-16) mg/dL Creatinine 0.64 (0.5-1.4) mg/dL Estim Creat Clear Calc 121.3 Estimated GFR > 60 Random Glucose 128 H (60-115) mg/dL Calcium 9.0 (8.4-10.2) mg/dL Total Bilirubin 0.3 (0.0-1.0) mg/dL AST 16 (5-31) U/L ALT 14 (0-31) U/L Alkaline Phosphatase 54 (39-117) U/L Troponin I High Sens < 3.5 (<3.5-17.0) ng/L C-Reactive Protein < 0.10 (< or = 0.50) mg/dL B-Natriuretic Peptide (<100) pg/mL Total Protein 6.5 (6.5-8.0) g/dL Albumin 3.8 (3.5-5.0) g/dL Influenza Type A (PCR) (Negative) Influenza Type B (PCR) (Negative) RSV RNA Qual (PCR) (Negative) SARS-CoV-2 RNA (RT-PCR) (Negative) 02/01/22 Range/Units 13:32 WBC (4.8-10.8) X10*3/uL RBC (4.20-5.50) X10*6/uL Hgb (12.0-16.0) g/dl Hct (37.0-47.0) % MCV (80.0-98.0) fL MCH (27.0-33.0) pg MCHC (31.0-35.0) g/dl RDW (11.0-16.0) % Plt Count (160-400) X10*3/uL MPV (9.4-12.3) fL Immature Gran % (Auto) (0.0-0.4) % Neut % (Auto) (45-73) % Lymph % (Auto) (20-40) % [place] % (Auto) (2-11) % Eos % (Auto) (0-4) % Baso % (Auto) (0-2) % Lymph # (Auto) (1.2-4.9) X10*3/uL [place] # (Auto) (0.1-1.2) X10*3/uL Eos # (Auto) (0.0-0.4) X10*3/uL Baso # (Auto) (0.0-0.2) X10*3/uL Abs Immat Gran (auto) (0.00-0.03) X10*3/uL Absolute Neuts (auto) (2.0-8.3) x10*3/uL Absolute Nucleated RBC (0.0-0.012) X10*3/uL Nucleated RBC % (auto) (0.0-0.2) /100WBC ESR 4 (0-20) MM/HR PT (10.0-13.1) SEC INR (0.9-1.1) APTT (26.0-36.4) SEC Sodium (135-145) mmol/L Potassium (3.3-5.1) mmol/L Chloride (96-108) mmol/L Carbon Dioxide (22-29) mmol/L Anion Gap (12-20) BUN (9-16) mg/dL Creatinine (0.5-1.4) mg/dL Estim Creat Clear Calc Estimated GFR Random Glucose (60-115) mg/dL Calcium (8.4-10.2) mg/dL Total Bilirubin (0.0-1.0) mg/dL AST (5-31) U/L ALT (0-31) U/L Alkaline Phosphatase (39-117) U/L Troponin I High Sens (<3.5-17.0) ng/L C-Reactive Protein (< or = 0.50) mg/dL B-Natriuretic Peptide (<100) pg/mL Total Protein (6.5-8.0) g/dL Albumin (3.5-5.0) g/dL Influenza Type A (PCR) (Negative) Influenza Type B (PCR) (Negative) RSV RNA Qual (PCR) (Negative) SARS-CoV-2 RNA (RT-PCR) (Negative) <LILLIANA Grimes - Last Filed: 02/05/22 12:30> Lab Results 02/01/22 02/01/22 02/01/22 Range/Units 13:31 13:31 13:32 WBC 5.7 (4.8-10.8) X10*3/uL RBC 4.24 (4.20-5.50) X10*6/uL Hgb 11.6 L (12.0-16.0) g/dl Hct 35.9 L (37.0-47.0) % MCV 84.7 (80.0-98.0) fL MCH 27.4 (27.0-33.0) pg MCHC 32.3 (31.0-35.0) g/dl RDW 14.6 (11.0-16.0) % Plt Count 245 (160-400) X10*3/uL MPV 9.7 (9.4-12.3) fL Immature Gran % (Auto) 0.2 (0.0-0.4) % Neut % (Auto) 57.2 (45-73) % Lymph % (Auto) 32.8 (20-40) % [place] % (Auto) 8.4 (2-11) % Eos % (Auto) 0.9 (0-4) % Baso % (Auto) 0.5 (0-2) % Lymph # (Auto) 1.9 (1.2-4.9) X10*3/uL [place] # (Auto) 0.5 (0.1-1.2) X10*3/uL Eos # (Auto) 0.1 (0.0-0.4) X10*3/uL Baso # (Auto) 0.0 (0.0-0.2) X10*3/uL Abs Immat Gran (auto) 0.01 (0.00-0.03) X10*3/uL Absolute Neuts (auto) 3.3 (2.0-8.3) x10*3/uL Absolute Nucleated RBC 0.000 (0.0-0.012) X10*3/uL Nucleated RBC % (auto) 0.0 (0.0-0.2) /100WBC ESR (0-20) MM/HR PT (10.0-13.1) SEC INR (0.9-1.1) APTT (26.0-36.4) SEC Sodium (135-145) mmol/L Potassium (3.3-5.1) mmol/L Chloride (96-108) mmol/L Carbon Dioxide (22-29) mmol/L Anion Gap (12-20) BUN (9-16) mg/dL Creatinine (0.5-1.4) mg/dL Estim Creat Clear Calc Estimated GFR Random Glucose (60-115) mg/dL Calcium (8.4-10.2) mg/dL Total Bilirubin (0.0-1.0) mg/dL AST (5-31) U/L ALT (0-31) U/L Alkaline Phosphatase (39-117) U/L Troponin I High Sens (<3.5-17.0) ng/L C-Reactive Protein (< or = 0.50) mg/dL B-Natriuretic Peptide 69 (<100) pg/mL Total Protein (6.5-8.0) g/dL Albumin (3.5-5.0) g/dL Influenza Type A (PCR) NEGATIVE (Negative) Influenza Type B (PCR) NEGATIVE (Negative) RSV RNA Qual (PCR) NEGATIVE (Negative) SARS-CoV-2 RNA (RT-PCR) NEGATIVE (Negative) 02/01/22 02/01/22 02/01/22 Range/Units 13:32 13:32 13:32 WBC (4.8-10.8) X10*3/uL RBC (4.20-5.50) X10*6/uL Hgb (12.0-16.0) g/dl Hct (37.0-47.0) % MCV (80.0-98.0) fL MCH (27.0-33.0) pg MCHC (31.0-35.0) g/dl RDW (11.0-16.0) % Plt Count (160-400) X10*3/uL MPV (9.4-12.3) fL Immature Gran % (Auto) (0.0-0.4) % Neut % (Auto) (45-73) % Lymph % (Auto) (20-40) % [place] % (Auto) (2-11) % Eos % (Auto) (0-4) % Baso % (Auto) (0-2) % Lymph # (Auto) (1.2-4.9) X10*3/uL [place] # (Auto) (0.1-1.2) X10*3/uL Eos # (Auto) (0.0-0.4) X10*3/uL Baso # (Auto) (0.0-0.2) X10*3/uL Abs Immat Gran (auto) (0.00-0.03) X10*3/uL Absolute Neuts (auto) (2.0-8.3) x10*3/uL Absolute Nucleated RBC (0.0-0.012) X10*3/uL Nucleated RBC % (auto) (0.0-0.2) /100WBC ESR (0-20) MM/HR PT 11.0 (10.0-13.1) SEC INR 1.0 (0.9-1.1) APTT 30.3 (26.0-36.4) SEC Sodium 140 (135-145) mmol/L Potassium 4.0 (3.3-5.1) mmol/L Chloride 105 (96-108) mmol/L Carbon Dioxide 29 (22-29) mmol/L Anion Gap 10 L (12-20) BUN 19 H (9-16) mg/dL Creatinine 0.64 (0.5-1.4) mg/dL Estim Creat Clear Calc 121.3 Estimated GFR > 60 Random Glucose 128 H (60-115) mg/dL Calcium 9.0 (8.4-10.2) mg/dL Total Bilirubin 0.3 (0.0-1.0) mg/dL AST 16 (5-31) U/L ALT 14 (0-31) U/L Alkaline Phosphatase 54 (39-117) U/L Troponin I High Sens < 3.5 (<3.5-17.0) ng/L C-Reactive Protein < 0.10 (< or = 0.50) mg/dL B-Natriuretic Peptide (<100) pg/mL Total Protein 6.5 (6.5-8.0) g/dL Albumin 3.8 (3.5-5.0) g/dL Influenza Type A (PCR) (Negative) Influenza Type B (PCR) (Negative) RSV RNA Qual (PCR) (Negative) SARS-CoV-2 RNA (RT-PCR) (Negative) 02/01/22 Range/Units 13:32 WBC (4.8-10.8) X10*3/uL RBC (4.20-5.50) X10*6/uL Hgb (12.0-16.0) g/dl Hct (37.0-47.0) % MCV (80.0-98.0) fL MCH (27.0-33.0) pg MCHC (31.0-35.0) g/dl RDW (11.0-16.0) % Plt Count (160-400) X10*3/uL MPV (9.4-12.3) fL Immature Gran % (Auto) (0.0-0.4) % Neut % (Auto) (45-73) % Lymph % (Auto) (20-40) % [place] % (Auto) (2-11) % Eos % (Auto) (0-4) % Baso % (Auto) (0-2) % Lymph # (Auto) (1.2-4.9) X10*3/uL [place] # (Auto) (0.1-1.2) X10*3/uL Eos # (Auto) (0.0-0.4) X10*3/uL Baso # (Auto) (0.0-0.2) X10*3/uL Abs Immat Gran (auto) (0.00-0.03) X10*3/uL Absolute Neuts (auto) (2.0-8.3) x10*3/uL Absolute Nucleated RBC (0.0-0.012) X10*3/uL Nucleated RBC % (auto) (0.0-0.2) /100WBC ESR 4 (0-20) MM/HR PT (10.0-13.1) SEC INR (0.9-1.1) APTT (26.0-36.4) SEC Sodium (135-145) mmol/L Potassium (3.3-5.1) mmol/L Chloride (96-108) mmol/L Carbon Dioxide (22-29) mmol/L Anion Gap (12-20) BUN (9-16) mg/dL Creatinine (0.5-1.4) mg/dL Estim Creat Clear Calc Estimated GFR Random Glucose (60-115) mg/dL Calcium (8.4-10.2) mg/dL Total Bilirubin (0.0-1.0) mg/dL AST (5-31) U/L ALT (0-31) U/L Alkaline Phosphatase (39-117) U/L Troponin I High Sens (<3.5-17.0) ng/L C-Reactive Protein (< or = 0.50) mg/dL B-Natriuretic Peptide (<100) pg/mL Total Protein (6.5-8.0) g/dL Albumin (3.5-5.0) g/dL Influenza Type A (PCR) (Negative) Influenza Type B (PCR) (Negative) RSV RNA Qual (PCR) (Negative) SARS-CoV-2 RNA (RT-PCR) (Negative) <Ruth Hensley NP - Last Filed: 02/01/22 18:07> Radiology Impression Discussion of test interpretation with radiology: I have reviewed the radiologist's reading. <Ruth Hensley NP - Last Filed: 02/01/22 18:07> Radiologist Impression: EXAMINATION: XR TIBIA AND FIBULA, LEFT CLINICAL INFORMATION: Leg bruise. Question fracture.? COMPARISON: None? TECHNIQUE: AP and lateral views of the left tibia and fibula were obtained. FINDINGS: There is no fracture or cortical disruption. Appropriate alignment at the knee and ankle. The soft tissues appear unremarkable.? XR/XR tibia fibula LT 2V IMPRESSION: No fracture or malalignment. ? Dictated By: Jakob Nash MD Signed By: <Electronically signed by Jakob Nash MD in OV> 02/01/22 1459 DD/ 1434 TD/TT:? Psychiatric Arnp: BELINDA EXAMINATION:? US VENOUS ULTRASOUND WITH DOPPLER LOWER EXTREMITY, LEFT CLINICAL INFORMATION:? Left lower extremity calf pain COMPARISON:? None TECHNIQUE: Ultrasound of the deep veins is performed from the hip to the calf with compression sonography and color and pulse Doppler assessment. Spectral analysis with color-flow imaging is performed. FINDINGS: There is normal venous compression and respiratory variation and augmented flow. The visualized common femoral vein, superficial femoral vein, profunda femoral vein, popliteal vein, and the trifurcation region shows no evidence of deep venous thrombosis. ? There is no significant popliteal fossa cyst. In the subcutaneous tissues in the medial calf there is a hypoechoic mass measuring 1.4 x 0.8 x 1.6 cm with some small cystic components. If the patient's symptoms persist, followup ultrasound in 5 days 7 days might be of value to exclude proximal propagation from a non-visualized calf vein. US/US venous duplex LE IMPRESSION: 1.? No DVT demonstrated in the left lower extremity. 2.? Small subcutaneous mass in the medial calf. This could be a small lipoma or possibly a sebaceous cyst. Continued clinical follow-up recommended. Dictated By: Cliff Longoria MD Signed By: <Electronically signed by Cliff Longoria MD in OV> 02/01/22 1601 DD/ 1526 TD/TT:? Psychiatric Arnp: ANNIE <Ruth Hensley NP - Last Filed: 02/01/22 18:07> Discharge Plan Discharge Clinical Impression: Acute leg pain <LILLIANA Grimes - Last Filed: 02/05/22 12:30> Patient Disposition: Home, Self-Care <LILLIANA Grimes - Last Filed: 02/05/22 12:30> Instructions: Leg Pain (ED) <LILLIANA Grimes - Last Filed: 02/05/22 12:30> Prescriptions: No Action calcium citrate-vitamin D3 315 mg-5 mcg (200 unit) tablet 1 tab PO BID Qty: 60 5RF Bariatric Multivitamins 45 mg iron- 800 mcg-120 mcg capsule 1 cap PO .daily in evening Qty: 90 3RF Iron Chews 15 mg tablet,chewable 15 mg PO DAILY sucralfate [Carafate] 100 mg/mL suspension 10 ml PO BID Qty: 420 3RF clotrimazole 1 % cream 1 appl topical BID Qty: 45 3RF diclofenac sodium 1 % gel topical quetiapine 100 mg tablet 100 mg PO BEDTIME capsaicin 0.025 % cream 1 appl topical BID sertraline 100 mg tablet 100 mg PO DAILY mupirocin 2 % ointment topical DAILY dicyclomine 20 mg tablet 20 mg PO BID PRN <LILLIANA Grimes - Last Filed: 02/05/22 12:30> Referrals: [facility] [[place] Group] Gallo Pearson PA [Primary Care Provider] - <LILLIANA Grimes - Last Filed: 02/05/22 12:30> Stand Alone Forms: Work/School Release <LILLIANA Grimes - Last Filed: 02/05/22 12:30> Interventions: ED Discharge Assessment Last Done: 02/01/22 18:40 <LILLIANA Grimes - Last Filed: 02/05/22 12:30> Discharge Date/Time: 02/01/22 18:41 <LILLIANA Grimes - Last Filed: 02/05/22 12:30> Print Language: Estonian <LILLIANA Grimes - Last Filed: 02/05/22 12:30>
[2022-02-01 13:39] LABS: MANUAL DIFF FLAG NO
[2022-02-01 13:42] LABS: Basophils Percent Auto 0.5 % (0-2); Eosinophils Absolute Auto 0.1 X10*3/uL (0.0-0.4); Eosinophils Percent Auto 0.9 % (0-4); Hematocrit 35.9 % (37.0-47.0); Hemoglobin 11.6 g/dl (12.0-16.0); Imm Gran Abs Auto 0.01 X10*3/uL (0.00-0.03); Imm Gran Pct Auto 0.2 % (0.0-0.4); Lymphocytes Absolute Auto 1.9 X10*3/uL (1.2-4.9); Lymphocytes Percent Auto 32.8 % (20-40); Mean Corpuscular HGB Conc 32.3 g/dl (31.0-35.0); Mean Corpuscular Hemoglobin 27.4 pg (27.0-33.0); Mean Corpuscular Volume 84.7 fL (80.0-98.0); Mean Platelet Volume 9.7 fL (9.4-12.3); Monocytes Absolute Auto 0.5 X10*3/uL (0.1-1.2); Monocytes Percent Auto 8.4 % (2-11); Neutrophils Absolute Auto 3.3 x10*3/uL (2.0-8.3); Neutrophils Percent Auto 57.2 % (45-73); Platelet Count 245 X10*3/uL (160-400); Red Blood Count 4.24 X10*6/uL (4.20-5.50); Red Cell Distribution Width 14.6 % (11.0-16.0); White Blood Count 5.7 X10*3/uL (4.8-10.8)
[2022-02-01 13:50] LABS: Partial Thromboplastin Time 30.3 SEC (26.0-36.4)
[2022-02-01 14:04] LABS: Alanine Aminotransferase 14 U/L (0-31); Albumin Level 3.8 g/dL (3.5-5.0); Alkaline Phosphatase 54 U/L (39-117); Anion Gap 10 (12-20); Aspartate Amino Transferase 16 U/L (5-31); Bilirubin Total 0.3 mg/dL (0.0-1.0); Blood Urea Nitrogen 19 mg/dL (9-16); Carbon Dioxide 29 mmol/L (22-29); Chloride 105 mmol/L (96-108); Creatinine Clr Calc Pharmacy 121.3; Estimated Glomerular Filt Rate > 60; Glucose Random 128 mg/dL (60-115); Sodium 140 mmol/L (135-145); Total Protein 6.5 g/dL (6.5-8.0)
[2022-02-01 14:10] LABS: B Type Natriuretic Peptide 69 pg/mL (<100)
[2022-02-01 14:15] LABS: Troponin-I High Sensitivity < 3.5 ng/L (<3.5-17.0)
[2022-02-01 14:18] LABS: Influenza A PCR NEGATIVE (Negative); Influenza B PCR NEGATIVE (Negative); Resp Syncy Virus RNA Qual PCR NEGATIVE (Negative); SARS COV2 PCR INHOUSE NEGATIVE (Negative)
[2022-02-01 15:06] VITALS: BP 115/85; PULSE 66; RESP 18; TEMP 36.7; O2SAT 100
[2022-02-01 15:10] LABS: C Reactive Protein < 0.10 mg/dL (< or = 0.50)
--- NOTE | 2022-02-01 15:16 | PC.NURSE ---
pt. alert and oriented. complains of pain and numbness on lower extremities. She has also complains of visible bruising not caused by known injury. pt states this has been going on for 3+ months. pt also states she has chest pain and feels short of breath.
[2022-02-01 16:05] LABS: Erythrocyte Sedimentation Rate 4 MM/HR (0-20)
[2022-02-01 18:01] VITALS: BP 111/70; PULSE 78; RESP 18; O2SAT 100
--- NOTE | 2022-02-01 18:04 | PC.NURSE ---
pt alert and oriented. resting comfortably. vs wnl. waiting on xray report. pt aware.
== END 2022-02-01 18:41 | disposition home or self-care (01) ==
PROVIDERS: Nurse Practitioner Family; Physician Assistant; Emergency Provider Emergency Medicine Emergency Medical Services; PCP Physician Assistant
DX: M79.662 Pain in left lower leg (principal); Z20.822 Contact with and (suspected) exposure to COVID-19
CPT/HCPCS: 0241U; 71045; 73590; 80053; 83880; 84484; 85025; 85610; 85652; 85730; 86140; 93005; 93971; 99284

== ENCOUNTER → 2022-02-20 10:37 | Outpatient (BNVA) | payer MEDICAID, SELFPAY | PROVIDERS: Visit Provider Dietitian, Registered | DX: E66.3 Overweight (principal); Z68.27 Body mass index [BMI] 27.0-27.9, adult | CPT/HCPCS: 97803 ==

== ENCOUNTER 2022-03-19 17:16 | Outpatient (REF) | payer MEDICAID, SELFPAY ==
[2022-03-19 17:43] LABS: Appearance Urine Cloudy; Color Urine Yellow; Glucose Urine UA Negative (Negative); Leukocyte Esterase Urine Moderate (2+) (Negative); Nitrite Urine Positive (Negative); Specific Gravity - Urine 1.025 (1.005-1.025); UMIC TRIGGER UA YES; Urine Blood Negative (Negative); Urine Ketones Negative (Negative); Urine Protein Trace mg/dL (Neg-Trace)
[2022-03-19 18:05] LABS: Bacteria Urine 4+ (None Seen); Hyaline Casts Urine 0-2 /LPF (0-2); RBC Urine 0-2 /HPF (0-2); Squamous Epithelial Cell Urine 0-2 /HPF (0-2); WBC Urine >50 /HPF (0-5)
== END 2022-03-19 17:17 | disposition home or self-care (01) ==
LOC: HO.LAB 17:16
PROVIDERS: PCP Physician Assistant; Visit Provider Urology
DX: N39.0 Urinary tract infection, site not specified (principal)
CPT/HCPCS: 81001; 87086

== ENCOUNTER 2022-05-08 10:28 | Outpatient (REF) | payer MEDICAID, SELFPAY ==
--- NOTE | ~2022-05-08 | FL_ITS ---
EXAMINATION: XR FLUOROSCOPY UPPER GI WITH AIR CLINICAL INFORMATION: Previous gastric surgery surgery. Pain. COMPARISON: RF guidance 08/07/2021. TECHNIQUE: Routine upper GI air-contrast study was performed. FINDINGS: Following oral administration of thick barium and effervescent granules, there is normal propagation of bolus from the oral cavity through the pharynx and esophagus and into a small stomach. No intrinsic narrowing or extrinsic compression seen. On placing patient supine and prone lying, the course and caliber of the small stomach and the duodenum are normal. The mucosal pattern of stomach and duodenum is normal. There is csoifnsl-ji-vajvw gastroesophageal reflux. No hiatal hernia seen. FLUOROSCOPY TIME: 1.6 minutes. DOSE AREA PRODUCT: 23.871 uGy-m2 (microgray-meter squared). FL/FL upper GI w air IMPRESSION: Large gastroesophageal reflux without hiatal hernia. Evidence of previous gastric reduction surgery changes with a small stomach noted.
== END 2022-05-08 10:29 | disposition home or self-care (01) ==
LOC: HO.XRAY 10:28
PROVIDERS: PCP Physician Assistant; Visit Provider Physician Assistant Surgical
DX: Z87.19 Personal history of other diseases of the digestive system (principal); Z98.84 Bariatric surgery status; Z98.890 Other specified postprocedural states
CPT/HCPCS: 74246

== ENCOUNTER 2022-07-30 12:27 | Outpatient (REF) | payer OTHER, SELFPAY ==
--- NOTE | ~2022-07-30 | MM_ITS ---
EXAMINATION: MM SCREENING DIGITAL BREAST TOMOSYNTHESIS, BILATERAL CLINICAL INFORMATION: Screening. Asymptomatic. Remote reduction mammoplasty, 2006. The lifetime risk of breast cancer based on the Tyrer-Cuzick Model is 7%. COMPARISON: Mammography: 07/27/2021, 07/12/2021, 06/21/2020, 06/21/2025 TECHNIQUE: Digital breast tomosynthesis is performed in both the craniocaudal and mediolateral oblique views along with computer-aided detection (CAD). Synthesized 2D images are generated from the tomosynthesis. FINDINGS: There are scattered areas of fibroglandular density (ACR BI-RADS breast composition Category b). There are no significant masses, abnormal calcifications, or other abnormalities. Parenchymal pattern is similar to prior studies. There is no developing density or architectural abnormality. There are bilateral nipple piercings. The axilla and skin contours are unremarkable. No significant changes. MM/MM tomosynthesis screening BI IMPRESSION: No mammographic evidence of malignancy. ASSESSMENT: BI-RADS 1: Negative RECOMMENDATION: Routine annual mammography screening. This patient's information was entered into a reminder system with a target due date for their next mammogram.
== END 2022-07-30 12:28 | disposition home or self-care (01) ==
LOC: HO.MAMMO 12:27
PROVIDERS: PCP Physician Assistant; Visit Provider Physician Assistant
DX: Z12.31 Encounter for screening mammogram for malignant neoplasm of breast (principal)
CPT/HCPCS: 77063; 77067

== ENCOUNTER → 2022-08-01 13:35 | Outpatient (BNVA) | payer OTHER, SELFPAY | PROVIDERS: PCP Physician Assistant; Visit Provider Physician Assistant Surgical ==

== ENCOUNTER → 2022-08-02 09:13 | Outpatient (BNVA) | payer OTHER, SELFPAY | PROVIDERS: PCP Physician Assistant; Visit Provider Physician Assistant Surgical | DX: E66.3 Overweight (principal); L98.7 Excessive and redundant skin and subcutaneous tissue; Z98.84 Bariatric surgery status ==

== ENCOUNTER 2022-09-12 12:09 | Outpatient (REF) | payer OTHER, SELFPAY ==
[2022-09-12 12:35] LABS: MANUAL DIFF FLAG NO
[2022-09-12 12:42] LABS: Basophils Percent Auto 0.5 % (0-2); Eosinophils Percent Auto 0.5 % (0-4); Hematocrit 41.3 % (37.0-47.0); Hemoglobin 13.4 g/dl (12.0-16.0); Imm Gran Abs Auto 0.03 X10*3/uL (0.00-0.03); Imm Gran Pct Auto 0.5 % (0.0-0.4); Lymphocytes Absolute Auto 1.4 X10*3/uL (1.2-4.9); Lymphocytes Percent Auto 22.7 % (20-40); Mean Corpuscular HGB Conc 32.4 g/dl (31.0-35.0); Mean Corpuscular Hemoglobin 27.6 pg (27.0-33.0); Mean Platelet Volume 9.4 fL (9.4-12.3); Monocytes Absolute Auto 0.5 X10*3/uL (0.1-1.2); Monocytes Percent Auto 7.6 % (2-11); Neutrophils Absolute Auto 4.2 x10*3/uL (2.0-8.3); Neutrophils Percent Auto 68.2 % (45-73); Platelet Count 259 X10*3/uL (160-400); Red Blood Count 4.86 X10*6/uL (4.20-5.50); Red Cell Distribution Width 14.1 % (11.0-16.0); White Blood Count 6.2 X10*3/uL (4.8-10.8)
[2022-09-12 12:57] LABS: Estimated Average Glucose 97 mg/dL
[2022-09-12 13:10] LABS: Alanine Aminotransferase 13 U/L (0-31); Albumin Level 4.1 g/dL (3.5-5.0); Alkaline Phosphatase 61 U/L (39-117); Anion Gap 15 (12-20); Aspartate Amino Transferase 12 U/L (5-31); Bilirubin Total 0.4 mg/dL (0.0-1.0); Blood Urea Nitrogen 13 mg/dL (9-16); C Reactive Protein < 0.10 mg/dL (< or = 0.50); Calcium 9.4 mg/dL (8.4-10.2); Carbon Dioxide 27 mmol/L (22-29); Chloride 106 mmol/L (96-108); Cholesterol 163 mg/dL; Estimated Glomerular Filt Rate > 60; Glucose Random 86 mg/dL (60-115); HDL Cholesterol 74 mg/dL; Iron 96 mcg/dL (30-160); LDL Cholesterol Calculated 77 mg/dl; Percent Iron Saturation 29 % (15-50); Potassium 3.5 mmol/L (3.3-5.1); Sodium 144 mmol/L (135-145); Total Iron Binding Capacity 331 mcg/dL (228-428); Total Protein 7.4 g/dL (6.5-8.0); Triglycerides 60 mg/dL; Unsaturated Iron Binding 235 ug/dL
[2022-09-12 13:27] LABS: Ferritin 64 ng/mL (10-250); Insulin 6 uU/mL (2-29); TSH reflex Free T4 0.62 uIU/mL (0.32-4.0); Vitamin D 25-OH Total 34.3 ng/mL (>30)
[2022-09-12 13:39] LABS: Folate 17.8 ng/mL (> or = 4.0); Vitamin B12 301 pg/mL (200-900)
[2022-09-12 14:13] LABS: Cannabinoid Screen Urine Not Detected (Not Detect)
[2022-09-14 19:38] LABS: Calcium (PTHI) 9.2 mg/dL (8.6-10.2); PTHI 53 pg/mL (16-77)
[2022-09-16 20:04] LABS: Zinc 71 mcg/dL (60-130)
[2022-09-17 12:13] LABS: Vitamin B1 10 nmol/L (8-30)
[2022-09-18 22:18] LABS: Cotinine, U <2 ng/mL; Nicotine, U <2 ng/mL
[2022-09-19 00:29] LABS: Vitamin A 60 mcg/dL (38-98)
== END 2022-09-12 12:10 | disposition home or self-care (01) ==
LOC: HO.LAB 12:09
PROVIDERS: PCP Physician Assistant; Visit Provider Physician Assistant Surgical
DX: Z01.818 Encounter for other preprocedural examination (principal); L98.7 Excessive and redundant skin and subcutaneous tissue; Z98.84 Bariatric surgery status
CPT/HCPCS: 80053; 80061; 80307; 80323; 82306; 82607; 82728; 82746; 83036; 83525; 83540; 83970; 84425; 84443; 84590; 84630; 85025; 86140

== ENCOUNTER 2022-09-12 12:50 | Emergency (ER) | payer OTHER, SELFPAY ==
--- NOTE | ~2022-09-12 | XR_ITS ---
EXAMINATION: XR FOOT, LEFT CLINICAL INFORMATION: Pain COMPARISON: None available. TECHNIQUE: AP, lateral, and oblique views of the left foot. FINDINGS: Mildly displaced oblique fracture of the fifth proximal phalanx. No additional fractures identified. Mild degenerative changes first MTP. Mild hallux valgus and hammertoe deformities. XR/XR foot LT min 3V IMPRESSION: Fractured left fifth toe.
[2022-09-12 13:37] VITALS: BP 128/80; PULSE 92; RESP 17; TEMP 35.8; O2SAT 98; BMI 28.2
--- NOTE | 2022-09-12 13:43 | ED_ITS ---
HPI - General Adult General Chief complaint: Extremity Injury, Lower Stated complaint: L toe injury Time Seen by Provider: 09/12/22 14:13 Source: patient and family (patient's mother) Mode of arrival: wheelchair Limitations: no limitations History of Present Illness HPI narrative: Patient is a 47 year old assigned female at with a history of arthritis and depression presenting to the emergency department today with left toe pain. Patient states that a week ago she bumped her left fifth toe on a bed frame however, the pain improved. Patient states that today she hit the same toe on the same bed frame and now the pain is back and much worse. Patient denies any dizziness, lightheadedness, abdominal pain, nausea, vomiting, fever, chills, blurry vision, double vision, loss of vision, chest pain, difficulty breathing, shortness of breath, back pain, night sweats, pain with urination, increased urinary frequency, increased urinary urgency, blood in her urine or stool, syncope or a near syncopal episode, bowel incontinence, bladder incontinence, bowel retention, bladder retention, or any other complaints at this time. Location: left and lower extremity Radiation: non-radiation Severity: mild Severity scale (1-10): 4 Quality: aching and dull Pain Consistency: constant Relieving factors: none Exacerbating factors: movement Associated symptoms: denies other symptoms Treatments prior to arrival: none Related Data Home Medications Medication Instructions Recorded Confirmed iron, carbonyl 15 mg chewable 15 mg PO DAILY 01/28/20 01/08/22 tablet (Iron Chews) capsaicin 0.025 % topical cream 1 appl topical BID 02/27/21 01/08/22 diclofenac sodium 1 % topical gel g topical 02/27/21 01/08/22 quetiapine 100 mg tablet 100 mg PO BEDTIME 02/27/21 01/08/22 sertraline 100 mg tablet 100 mg PO DAILY 02/27/21 01/08/22 mupirocin 2 % topical ointment topical DAILY 03/20/21 01/08/22 dicyclomine 20 mg tablet 20 mg PO BID PRN 06/20/21 01/08/22 Previous Rx's Medication Instructions Recorded clotrimazole 1 % topical cream 1 appl topical BID #45 grams 01/08/22 sucralfate 100 mg/mL oral 10 ml PO BID #420 mL 01/08/22 suspension (Carafate) levofloxacin 500 mg tablet 500 mg PO DAILY 5 days #5 tabs 03/20/22 calcium citrate 315 mg-vitamin D3 1 tab PO BID #60 tabs 08/02/22 5 mcg (200 unit) tablet iqavebfz-[id number]-ufsy 45 mg-folic 1 cap PO .daily in evening #90 caps 08/02/22 acid 800 mcg-vit K 120 mcg capsule (Bariatric Multivitamins) Allergies Allergy/AdvReac Type Severity Reaction Status Date / Time No Known Allergies Allergy Verified 01/08/22 13:06 Review of Systems Constitutional: Constitutional: Reports no additional constitutional complaints, Denies chills, Denies fever(s) and Denies night sweats Eyes: Eyes: Reports no additional eye complaints, Denies blurry vision, Denies change in vision, Denies diplopia, Denies eye discharge, Denies loss of vision and Denies eye pain ENT: Denies dizziness Cardiovascular: Cardiovascular: Reports no additional cardiovascular complaints, Denies chest pain, Denies lightheadedness, Denies Loss of Consciousness and Denies dyspnea Respiratory: Respiratory: Reports no additional respiratory complaints and Denies dyspnea Gastrointestinal: Gastrointestinal: Reports no additional gastrointestinal complaints, Denies abdominal pain, Denies melena, Denies hematochezia, Denies change in bowel habits and Denies change in stool character Genitourinary: Genitourinary: Denies hematuria, Denies urinary frequency, Denies dysuria, Denies urinary incontinence, Denies urinary hesitancy and Denies urinary urgency Musculoskeletal: Musculoskeletal: Reports no additional musculoskeletal complaints, Denies numbness and Denies tingling Comments: left 5th toe pain Neurologic: Denies dizziness, Denies loss of vision, Denies numbness and Denies tingling Psychiatric: Psychiatric: Reports no additional psychiatric complaints Endocrine: Endocrine: Reports no additional endocrine complaints Hematologic/Lymphatic: Hematologic/Lymphatic: Reports no additional hematologic/lymphatic complaints Allergic/Immunologic: Allergic/Immunologic: Reports no additional allergic/immunologic complaints PMFSH Past Medical History Attestation statement: The following information was validated with the patient. Source: old records reviewed and nursing notes reviewed Medical History Anxiety Arthritis Back pain Binge eating disorder Body mass index (BMI) of 40.1 to 44.9 in adult Chest pain KENISHA I (cervical intraepithelial neoplasia I) Depression Frequent UTI Hiatal hernia Insomnia Intestinal malabsorption following gastrectomy Migraines Morbid obesity due to excess calories Ovarian cyst Overweight Preop testing Preoperative examination Scoliosis Shortness of breath Vitamin B1 deficiency Vitamin D deficiency Surgical History History of arthroscopy of both knees History of cervical LEEP biopsy affecting care of mother, antepartum History of repair of hiatal hernia Hx of breast reduction, elective Hx of tubal ligation S/P laparoscopic sleeve gastrectomy Family History Family History Father Colon cancer Mother No problems noted. Brother Obesity Brother Obesity Son No problems noted. Daughter No problems noted. Daughter No problems noted. Social History Social History Household Members: Family Housing: Apartment Are you a primary healthcare economics manager to a significant other at home: No Do you presently have visiting nurse or other home services: No Alcohol intake: current Alcohol intake frequency: holidays/special occasions only Patient Tobacco Use Status: Current everyday Tobacco user Tobacco use type: Cigarette Cigarettes Per Day: 6 Substance Use Type: Marijuana Advance Directives: No Advance Directives Information Provided: No service: No Current occupational status: employed Physical Exam ED Vital Signs: Vital Signs - 24 hr 09/12/22 13:37 Temperature 96.4 F L Pulse Rate 92 Respiratory Rate 17 Blood Pressure 128/80 Pulse Oximetry 98 Oxygen Delivery Method Room Air BMI result Body Mass Index 28.2 Const General: cooperative, no acute distress, alert and awake Nutritional Appearance: well nourished Orientation/consciousness: patient oriented x3 Limitations: no limitations HENMT Head: Yes normal to inspection and Yes atraumatic Ears: hearing grossly normal bilaterally and external ears normal General nose exam: Normal external nose present, no nasal discharge noted and no epistaxis Face and sinus: Yes normal facial exam, No abrasion and No laceration Mouth: Normal oral and palatal mucosa present, no drooling and no muffled voice Eyes General: appearance normal, both eyes and all related structures Periorbital: periorbital findings normal Eyelids: Yes eyelids normal Conjunctivae: conjunctivae normal Pupils: Equal, round and reactive pupils present EOM: EOMs intact bilaterally Neck Neck: Yes normal visual inspection, Yes full ROM and Yes no lymphadenopathy Chest Chest palpation & inspection: normal inspection of the chest Resp Effort & Inspection: normal respiratory effort and able to speak in complete sentences Auscultation: clear to auscultation bilaterally Cardio Rate: regular rate Rhythm: regular rhythm GI Inspection: Yes normal to inspection Neuro General: patient oriented x3 and moves all extremities Cranial nerves: Yes Equal, round and reactive pupils present Cognition (Neuro): normal cognition Motor exam (neuro): 5/5 motor strength present throughout Sensory Exam: Normal double simultaneous stimulation for sensation Coordination: evgcol-tu-xrju test normal Extrem General: Yes normal to inspection, Yes full ROM and Yes capillary refill normal Psych Appearance: grossly normal Mental Status: mental status grossly normal Affect: normal affect Attitude: cooperative Thought process: Normal thought process present Thought content: Normal thought content present Insight: Good insight present (Psych) Course Course Course Narrative: This is an RME: Additional HPI, ROS, PE not included below will be deferred to primary provider. This is a [id number]-female presenting to the emergency department with a complaint of left foot pain x 1 week. She hit her left foot on her mother's bed frame two times in the last week. TTP along the 3-5 metarasals and tarsals. Ambulatory with antalgic gait. Left ankle nontender. VSS. Plan: Xray foot Medications Administered Discontinued Medications Generic Name Dose Route Start Last Admin Trade Name Cecy PRN Reason Stop Dose Admin Hydrocodone Bitart/Acetaminophen 2 tab 09/12/22 14:45 09/12/22 14:39 Hydrocodone Bit/Acetam 5/325 Tablet PO 09/12/22 14:46 2 tab ONCE ONE Administration Procedures Orthopedic Splinting/Casting Injury #1: Side: left Lower Extremity Injury Location: toe (5th) Lower Extremity Immobilizer: boot orthosis Medical Decision Making Medical Decision Making MDM Narrative: Patient is a 47 year old assigned female at with a history of arthritis and depression presenting to the emergency department today with left 5th toe pain. Patient's physical exam was unremarkable. Patient's left foot x-ray showed an acute fracture of the left 5th toe. I explained my physical exam findings as well as all test results to the patient. I answered all questions asked by the patient. Patient's left foot was placed in a walking boot, without incident. Patient's PMS was intact prior to and after boot placement. I stressed the importance of the patient taking her medication as prescribed. I stressed the importance of the patient following up with her primary care provider and an orthopedic provider. I stressed the importance of the patient returning to the emergency department immediately if her symptoms were to worsen or if she were to develop any dizziness, shortness of breath, difficulty breathing, chest pain, blurry vision, loss of vision, nausea, vomiting, abdominal pain, fever, chills, back pain, or any other complaints. Patient verbalized agreement and underst anding with this treatment plan and discharge. Differential Diagnosis Differential Diagnoses: The differential diagnosis associated with the presentation includes Left foot fracture Left toe fracture Independent Interpretation I performed an independent interpretation of an: Plain X-Ray Interpretation: My interpretation is in agreement with the radiologist's impression of this imaging study. EXAMINATION: XR FOOT, LEFT CLINICAL INFORMATION: Pain? COMPARISON: None available.? TECHNIQUE: AP, lateral, and oblique views of the left foot. FINDINGS: Mildly displaced oblique fracture of the fifth proximal phalanx. No additional fractures identified. Mild degenerative changes first MTP. Mild hallux valgus and hammertoe deformities. XR/XR foot LT min 3V IMPRESSION: Fractured left fifth toe. Dictated By: Aleyda Aviles MD Signed By: Electronically signed by Aleyda Aviles MD 09/12/22 6777 Radiology Impression Discussion of test interpretation with radiology: I have reviewed the radiologist's reading. Discharge Plan Discharge Clinical Impression: Fracture of toe Patient Disposition: Home, Self-Care Instructions: Toe Fracture (ED), Walking Boot (ED) Additional Instructions: Follow up with your primary care provider and an orthopedic provider. Return to the emergency department immediately if your symptoms worsen or if you develop any dizziness, shortness of breath, difficulty breathing, chest pain, blurry vision, loss of vision, nausea, vomiting, abdominal pain, fever, chills, back pain, or any other complaints. Prescriptions: No Action levofloxacin 500 mg tablet 500 mg PO DAILY 5 Days Qty: 5 0RF Iron Chews 15 mg tablet,chewable 15 mg PO DAILY sucralfate [Carafate] 100 mg/mL suspension 10 ml PO BID Qty: 420 3RF clotrimazole 1 % cream 1 appl topical BID Qty: 45 3RF diclofenac sodium 1 % gel topical quetiapine 100 mg tablet 100 mg PO BEDTIME capsaicin 0.025 % cream 1 appl topical BID sertraline 100 mg tablet 100 mg PO DAILY mupirocin 2 % ointment topical DAILY dicyclomine 20 mg tablet 20 mg PO BID PRN calcium citrate-vitamin D3 315 mg-5 mcg (200 unit) tablet 1 tab PO BID Qty: 60 5RF Bariatric Multivitamins 45 mg iron- 800 mcg-120 mcg capsule 1 cap PO .daily in evening Qty: 90 3RF Referrals: [facility] [Provider Group] (Call to establish and follow up with an orthopedic provider. ) Gallo Pearson PA [Primary Care Provider] - Interventions: ED Discharge Assessment Last Done: 09/12/22 14:57 Discharge Date/Time: 09/12/22 14:58 Print Language: Kazakh
[2022-09-12] MEDS: HYDROcodone Bit/Acetam 5/325 TABLET 2 TAB PO (14:39)
== END 2022-09-12 14:58 | disposition home or self-care (01) ==
PROVIDERS: Emergency Provider Emergency Medicine; PCP Physician Assistant
DX: S92.502A Displaced unspecified fracture of left lesser toe(s), initial encounter for closed fracture (principal); M79.672 Pain in left foot; Y29.XXXA Contact with blunt object, undetermined intent, initial encounter; Y93.9 Activity, unspecified; Y92.9 Unspecified place or not applicable; Y99.9 Unspecified external cause status
CPT/HCPCS: 29515; 73630; 99283; 99284

== ENCOUNTER 2022-09-27 06:33 | Outpatient (REF) | payer OTHER, SELFPAY ==
--- NOTE | ~2022-09-27 | XR_ITS ---
EXAMINATION: XR FOOT, LEFT CLINICAL INFORMATION: Pain in left foot COMPARISON: 09/12/2022 TECHNIQUE: AP, lateral, and oblique views of the left foot. FINDINGS: Redemonstration of displaced oblique fracture of the fifth proximal phalanx. Mild degenerative changes first MTP. Mild hallux valgus and hammertoe deformities. XR/XR foot LT min 3V IMPRESSION: Redemonstration of mildly displaced fracture fifth proximal phalanx.
== END 2022-09-27 06:34 | disposition home or self-care (01) ==
LOC: HO.HOSX 06:33
PROVIDERS: Visit Provider Physician Assistant
DX: S92.352A Displaced fracture of fifth metatarsal bone, left foot, initial encounter for closed fracture (principal)
CPT/HCPCS: 73630; 99202

== ENCOUNTER 2022-09-27 10:38 | Outpatient (AMB) | payer OTHER, SELFPAY ==
--- NOTE | 2022-09-27 10:45 | MHC.OFFVIS ---
Intake Vital Signs 09/27/22 10:57 Height 5 ft 10 in Weight 196 lb BMI 28.1 Intake Visit Reasons: Fx Care - Lt 5th Toe Intake Note: Katarzyna a 47 year old female who presents today for an ER follow up of left 5th proximal phalanx fx. Patient reports a week prior to ER visit on 09/12/22 she bumped her small toe on a bed frame, pain improved but then bumped toe again same day as ER visit, now pain is much worse. She was placed in a walking boot and referred to orthopedics. Currently constant pain and with with walking on . her pain is worse and is radiating up to her knee as well as numbness and tingling. She is not able to take ibuprofen or Tylenol due to gastric sleeve surgery and will cause GI upset. Patient was unable to verify medications. Allergies No Known Allergies Allergy (Verified 09/27/22 11:09) HPI Fx Care - Lt 5th Toe HPI Details 47-year-old female who presents to the office today for an ER follow-up of left 5th toe injury s/p bumping her small toe on a bed frame. She reports she had improvement in her pain until she bumped her toe again, 09/12/22. She was seen at ER the same day where she was placed in a walking boot and she was referred to our office. She states she has constant worsening pain, numbness and tingling in her toe which radiates up to her knee. She is unable to take ibuprofen or Tylenol due to her gastric issues and gastric sleeve surgery. 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 [facility] Medical History Anxiety Arthritis Back pain Binge eating disorder Body mass index (BMI) of 40.1 to 44.9 in adult Chest pain KENISHA I (cervical intraepithelial neoplasia I) Depression Frequent UTI Hiatal hernia Insomnia Intestinal malabsorption following gastrectomy Migraines Morbid obesity due to excess calories Ovarian cyst Overweight Preop testing Preoperative examination Scoliosis Shortness of breath Vitamin B1 deficiency Vitamin D deficiency Surgical History History of arthroscopy of both knees History of cervical LEEP biopsy affecting care of mother, antepartum History of repair of hiatal hernia Hx of breast reduction, elective Hx of tubal ligation S/P laparoscopic sleeve gastrectomy Family History Father Colon cancer Mother No problems noted. Brother Obesity Brother Obesity Son No problems noted. Daughter No problems noted. Daughter No problems noted. 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 There is no bruising of the left foot. Mild tenderness and hypersensitivity to touch over the 5th metatarsal. Sensation intact. EHL intact. No pain along the mediolateral malleolus. Neurovascularly intact. Office Procedures Fracture Care Fracture Billing Code: Fracture Billing Code Results Reviewed Results Reviewed: Xrays were obtained in the office today and personally reviewed by me of the left foot show non displaced transverse fracture through the middle phalanx of the small toe Assessment & Plan Assessment & Plan (1) Fracture of fifth metatarsal bone of left foot: Code(s): S92.352A - Displaced fracture of fifth metatarsal bone, left foot, initial encounter for closed fracture Plan She will continue wearing the boot weight bearing as tolerated. I did recommend and encouraged her to transition to a regular street shoe in the next 2 weeks as symptoms allow. If she continues to have discomfort then she may need the boot for an additional week and then transition. I did send a prescription of Celebrex to the pharmacy to help with her pain and inflammation. She will see us back as needed. Orders: Orders XR foot LT min 3V Today M79.672 - Pain in left foot Medications: New celecoxib (Celebrex) 200 mg PO BID 60 caps 3RF 30 days Patient Instructions: Scribed for Karlo-Garima Mackay PA-C, by Vinod Garcia quality engineer medical device, on 09/27/2022 at 10:00 AM [facility]. Claudia Schumacher PA-C, have personally reviewed and agree with the information entered by the scribe. Coding Level of Care Code New Pt Level 3 (78332) Diagnoses Fracture of fifth metatarsal bone of left foot S92.352A CPT Codes Fracture Care - Fracture Billing Code: Fracture Billing Code ([id number])
[2022-09-27 10:57] VITALS: BMI 28.1
== END 2022-09-27 11:37 | disposition home or self-care (01) ==
PROVIDERS: PCP Physician Assistant; Visit Provider Physician Assistant
DX: S92.352A Displaced fracture of fifth metatarsal bone, left foot, initial encounter for closed fracture (principal)
CPT/HCPCS: 99203

== ENCOUNTER 2022-10-25 10:51 | Outpatient (AMB) | payer OTHER, SELFPAY ==
--- NOTE | 2022-10-25 10:55 | MHC.OFFVISWM ---
Intake VS Expanded 10/25/22 11:24 Height 5 ft 10 in Weight 197 lb BMI 28.3 BP 133/77 Blood Pressure Location Rt brachial Blood Pressure Position Sitting Pulse 68 Pulse Source Pulse Oximeter Temp 97.9 F Temperature Source Temporal Artery Scan Pulse Oximetry 99 Oxygen Delivery Method Room Air Body Fat 69.2 Body Fat Percentage 35.2 Free Fat Mass 127.6 Muscle Mass 121.2 Visceral Mass 7.0 Water Mass 91.0 BMR 1,735 Intake Visit Reasons: (OV) PO LSG 07/06/20 Allergies No Known Allergies Allergy (Verified 10/25/22 11:18) Medication List - Last Reconciled 10/25/22 by LILLIANA Chin calcium citrate-vitamin D3 315 mg-5 mcg (200 unit) 1 tab PO BID capsaicin 0.025% 1 appl topical BID celecoxib (Celebrex) 200 mg PO BID 30 days clotrimazole 1% 1 appl topical BID diclofenac sodium 1% grams topical dicyclomine 20 mg PO BID PRN iron, carbonyl (Iron Chews) 15 mg PO DAILY levofloxacin 500 mg PO DAILY 5 days [id number]-emy-snlt-FA-vit K 45 mg iron- 800 mcg-120 mcg (Bariatric Multivitamins) 1 cap PO .daily in evening mupirocin 2% topical DAILY quetiapine 100 mg PO BEDTIME sertraline 100 mg PO DAILY sucralfate (Carafate) 10 mL PO BID HPI HPI Comments History of Present Illness Details This?is a?47?yo female who is s/p LSG 07/06/2020. Presents for 2 year 4 month post op visit. Weight at last visit on 08/02/2022 was 190, weight today is 197 pounds, representing a 7 pound weight gain with a BMI today of 28.2.? No complaints of nausea, emesis, abdominal pain or reflux, or constipation. Feels depressed that she was unable to have surgery when her insurance changed, feels compelled to eat when she is stressed. She reports that she has quit smoking. Reports she continues to go to therapy. Present meal plan includes: has restarted shakes and trying to get adequate protein intake Exercise routine includes: biking, but recently had a broken toe and was in a boot Pt continues to report problems of excess skin of abdomen and upper thighs. Regarding abdomen, she continues to experience itchy and painful rashes frequently. She has been using clotrimazole ointment multiple times a day but this has not completely resolved the problem. She noticed a lot of moisture collecting in the skin folds/umbilicus over the summer which increased the frequency of rashes and resulted in unpleasant odors. She has to shower several times a day sometimes. Exercise is more difficult due to excess skin getting in the way of her full range of motion. Regarding thighs, she experiences a lot of painful chafing because skin rubs together. Topical rx treatment has not helped these rashes either. She has to wear pants at all times, cannot wear shorts or skirts/dresses. She notices that the skin on inner thighs smells unpleasant due to chafing. She gets pinched skin on her exercise bike and her range of motion is limited in what she can do for exercise. It is often difficult to get comfortable on the bike and exercise without pain/pinching. [facility] Medical History Anxiety Arthritis Back pain Binge eating disorder Body mass index (BMI) of 40.1 to 44.9 in adult Chest pain KENISHA I (cervical intraepithelial neoplasia I) Depression Frequent UTI Hiatal hernia Insomnia Intestinal malabsorption following gastrectomy Migraines Morbid obesity due to excess calories Ovarian cyst Overweight Preop testing Preoperative examination Scoliosis Shortness of breath Vitamin B1 deficiency Vitamin D deficiency Surgical History S/P laparoscopic sleeve gastrectomy History of repair of hiatal hernia History of arthroscopy of both knees History of cervical LEEP biopsy affecting care of mother, antepartum Hx of tubal ligation Hx of breast reduction, elective Family History Father Colon cancer Mother No problems noted. Brother Obesity Brother Obesity Son No problems noted. Daughter No problems noted. Daughter No problems noted. 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 Physical Exam Vital Signs: Last Vital Signs Temp 97.9 F 10/25/22 11:24 Pulse 68 10/25/22 11:24 BP 133/77 10/25/22 11:24 Pulse Ox 99 10/25/22 11:24 Oxygen Delivery Method Room Air 10/25/22 11:24 BMI result Body Mass Index 28.3 Assessment & Plan Assessment & Plan (1) Excess skin: Code(s): L98.7 - Excessive and redundant skin and subcutaneous tissue (2) S/P laparoscopic sleeve gastrectomy: Comment: 07/06/20 Code(s): Z98.84 - Bariatric surgery status Plan Pt is experiencing ongoing problems of excess skin of abdomen, resulting in frequent painful and itchy rashes refractory to topical Rx treatment. The excess skin is limiting her range of motion during exercise and causing discomfort. In addition she is experiencing ongoing problems of excess skin of upper thighs, resulting in frequent painful chafing/rashes refractory to topical Rx treatment. The excess skin makes exercise difficult and painful, which is necessary to maintain her weight loss. Will resubmit to insurance now that pt has had stable weight for 6+ months (190lbs documented in February, within 5% deviation). Patient is overweight with problems of excess skin of abdomen and thighs, and is not considered stable at this time. I spent a total of 30 minutes reviewing/updating records, examining the patient and counseling the patient on weight management as detailed above. Coding Level of Care Code Est Pt Level 4 (13927) Diagnoses Excess skin L98.7 S/P laparoscopic sleeve gastrectomy Z98.84
[2022-10-25 11:24] VITALS: BP 133/77; PULSE 68; TEMP 36.6; O2SAT 99; BMI 28.3
== END 2022-10-25 12:08 | disposition home or self-care (01) ==
PROVIDERS: PCP Physician Assistant; Visit Provider Physician Assistant Surgical
DX: L98.7 Excessive and redundant skin and subcutaneous tissue (principal); Z98.84 Bariatric surgery status
CPT/HCPCS: 99214

== ENCOUNTER → 2022-10-25 10:51 | Outpatient (BNVA) | payer OTHER, SELFPAY | PROVIDERS: PCP Physician Assistant; Visit Provider Physician Assistant Surgical | DX: L98.7 Excessive and redundant skin and subcutaneous tissue (principal); Z98.84 Bariatric surgery status | CPT/HCPCS: 99212 ==

== ENCOUNTER 2022-11-01 14:46 | Outpatient (AMB) | payer OTHER, SELFPAY ==
--- NOTE | 2022-11-01 15:22 | MHC.OFFVIS ---
Intake Intake Visit Reasons: ov- Fx Lt 5th Toe Intake Note: Katarzyna a 47 year old female who presents today for follow up of 5th. Pain with prolong walking. damaged boot straps not connecting. prolong walking and standing pain that radiates up into her knee. Allergies No Known Allergies Allergy (Verified 10/25/22 11:18) HPI ov- Fx Lt 5th Toe HPI Details 47-year-old female who returns to the office today for a follow-up of left 5th toe fracture. She continues to have intermittent pain and swelling in her toe which radiates up to the knee. Her pain is aggravated with prolonged walking and standing. She has d/c the use of the boot. [facility] Medical History Anxiety Arthritis Back pain Binge eating disorder Body mass index (BMI) of 40.1 to 44.9 in adult Chest pain KENISHA I (cervical intraepithelial neoplasia I) Depression Frequent UTI Hiatal hernia Insomnia Intestinal malabsorption following gastrectomy Migraines Morbid obesity due to excess calories Ovarian cyst Overweight Preop testing Preoperative examination Scoliosis Shortness of breath Vitamin B1 deficiency Vitamin D deficiency Surgical History S/P laparoscopic sleeve gastrectomy History of repair of hiatal hernia History of arthroscopy of both knees History of cervical LEEP biopsy affecting care of mother, antepartum Hx of tubal ligation Hx of breast reduction, elective Family History Father Colon cancer Mother No problems noted. Brother Obesity Brother Obesity Son No problems noted. Daughter No problems noted. Daughter No problems noted. 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 There is no bruising of the left foot. Mild tenderness over the 5th metatarsal. Sensation intact. EHL intact. No pain along the mediolateral malleolus. Neurovascularly intact. Results Reviewed Results Reviewed: Xrays were obtained in the office today and personally reviewed by me of the left foot show stable fracture alignment with callus formation Assessment & Plan Assessment & Plan (1) Fracture of fifth metatarsal bone of left foot: Code(s): S92.352A - Displaced fracture of fifth metatarsal bone, left foot, initial encounter for closed fracture Qualifiers: Encounter type: subsequent encounter Fracture type: closed Fracture alignment: nondisplaced Fracture healing: with routine healing Qualified Code(s): S92.355D - Nondisplaced fracture of fifth metatarsal bone, left foot, subsequent encounter for fracture with routine healing Plan Reassurance was given that the fracture is stable and healing well. She does have a good amount of callous formation. I did recommend she wear stiff sole shoes to help with pain relief and increase activity. She will begin a course of physical therapy for gait training and strengthening exercises. She will see me back as needed. Orders: Orders XR foot LT min 3V 11/01/22 M79.672 - Pain in left foot PT Evaluation and Treatment 11/01/22 S92.352A - Displaced fracture of fifth metatarsal bone, left foot, initial encounter for closed fracture Patient Instructions: Scribed for Claudia Mackay PA-C, by Vinod Garcia medical data entry clerk, on 11/01/2022 at 2:45 PM EST. I, Claudia Mackay PA-C, have personally reviewed and agree with the information entered by the scribe. Coding Level of Care Code Global (38588) Diagnoses Closed nondisplaced fracture of fifth metatarsal bone of left foot with routine healing, subsequent encounter S92.355D Encounter type: subsequent encounter Fracture type: closed Fracture alignment: nondisplaced Fracture healing: with routine healing
== END 2022-11-01 16:04 | disposition home or self-care (01) ==
PROVIDERS: PCP Physician Assistant; Visit Provider Physician Assistant
DX: S92.355D Nondisplaced fracture of fifth metatarsal bone, left foot, subsequent encounter for fracture with routine healing (principal)
CPT/HCPCS: 99213

== ENCOUNTER 2022-11-01 14:46 | Outpatient (REF) | payer OTHER, SELFPAY ==
--- NOTE | ~2022-11-01 | XR_ITS ---
EXAMINATION: XR FOOT, LEFT CLINICAL INFORMATION: Left foot pain. COMPARISON: Most recent left foot radiographs dated 09/27/2022. TECHNIQUE: AP, lateral, and oblique views of the left foot. FINDINGS: Mildly displaced, oblique fracture through the fifth proximal phalanx in unchanged anatomic alignment. Significant interval new bone/callus formation when compared to the prior examination. No new fracture or dislocation. No joint space narrowing or marginal osteophytes. No osseous erosion. No abnormal soft tissue calcification. XR/XR foot LT min 3V IMPRESSION: Fifth proximal phalangeal fracture in unchanged anatomic alignment with significant interval new bone/callus formation.
== END 2022-11-01 14:47 | disposition home or self-care (01) ==
LOC: HO.HOSX 14:46
PROVIDERS: PCP Physician Assistant; Visit Provider Physician Assistant
DX: S92.355D Nondisplaced fracture of fifth metatarsal bone, left foot, subsequent encounter for fracture with routine healing (principal); M79.672 Pain in left foot; X58.XXXD Exposure to other specified factors, subsequent encounter
CPT/HCPCS: 73630; 99212

== ENCOUNTER 2023-09-18 14:25 | Outpatient (REF) | payer OTHER, SELFPAY ==
--- NOTE | ~2023-09-18 | MM_ITS ---
EXAMINATION: MM SCREENING DIGITAL BREAST TOMOSYNTHESIS, BILATERAL CLINICAL INFORMATION: Screening. Asymptomatic. COMPARISON: Mammography: This study is compared with prior exams dating back to 2019. TECHNIQUE: Digital breast tomosynthesis is performed in both the craniocaudal and mediolateral oblique views along with computer-aided detection (CAD). Synthesized 2D images are generated from the tomosynthesis. FINDINGS: There are scattered areas of fibroglandular density (ACR BI-RADS breast composition Category b). The patient has bilateral nipple rings. There are no significant masses, abnormal calcifications, or other abnormalities. MM/MM tomosynthesis screening BI IMPRESSION: No mammographic evidence of malignancy. ASSESSMENT: BI-RADS BI-RADS 1 - Negative RECOMMENDATION: Routine annual mammography screening. 1 year F/U This examination should not preclude the clinical evaluation of a suspicious palpable abnormality. This patient's information was entered into a reminder system with a target due date for their next mammogram. Electronically signed by: Yarelis Shah MD 10/11/2023 12:31 PM EDT
== END 2023-09-18 14:26 | disposition home or self-care (01) ==
LOC: HO.MAMMO 14:25
PROVIDERS: PCP Physician Assistant; Visit Provider Physician Assistant
DX: Z12.31 Encounter for screening mammogram for malignant neoplasm of breast (principal)
CPT/HCPCS: 77063; 77067

== ENCOUNTER → 2023-09-18 14:30 | Outpatient (BNV) | payer OTHER, SELFPAY | PROVIDERS: PCP Physician Assistant; Visit Provider Radiology Diagnostic Radiology | DX: Z12.31 Encounter for screening mammogram for malignant neoplasm of breast (principal) | CPT/HCPCS: 77063; 77067 ==

== ENCOUNTER 2024-01-20 14:51 | Outpatient (AMB) | payer OTHER, SELFPAY ==
--- NOTE | 2024-01-20 15:00 | A.OFFVIS_ITS ---
VS Expanded 01/20/24 15:10 BP 129/80 Blood Pressure Location Rt brachial Blood Pressure Position Sitting Pulse 90 Pulse Source Pulse Oximeter Temp 96.3 F L Temperature Source Temporal Artery Scan Pulse Oximetry 97 Oxygen Delivery Method Room Air Height 5 ft 10 in Weight 181 lb 3.2 oz BMI 26.0 Body Fat % 31.2 Body Fat Mass 56.4 Fat Free Mass 124.6 Visceral Fat Rating 6.0 Body Water % 49.0 Body Water Mass 88.6 Muscle Mass/Score 118.2 Basal Metabolic Rate/Score 1,673 Intake Visit Reasons: OV PO LSG 07/06/20 Allergies No Known Allergies Allergy (Verified 01/20/24 15:04) HPI Comments Details: 48-year-old female returns to the office today in follow-up. She is approximately 3 years six-month post sleeve gastrectomy performed by Dr. Oglesby on 07/06/2020. Weight today is 181.2 lb with a BMI of 26. She continues to have discomfort of the abdomen skin and excess skin of her thighs. This has caused rash, discomfort, pain. She has been applying clotrimazole antifungal prescription cream only to have resolution and then recurrence. She has been following a meal plan including 3 premier protein ready to drink shakes and a meal at night which she is not measuring quantity. She reports going to the gym 3 days per week, doing both weight training and cardio, burning approximately 150-200 calories per session. [facility] Medical History Preop testing Overweight Chest pain Frequent UTI Intestinal malabsorption following gastrectomy Hiatal hernia Shortness of breath Vitamin B1 deficiency Vitamin D deficiency Preoperative examination Body mass index (BMI) of 40.1 to 44.9 in adult Morbid obesity due to excess calories Scoliosis Migraines Insomnia KENISHA I (cervical intraepithelial neoplasia I) Binge eating disorder Ovarian cyst Anxiety Depression Back pain Arthritis Surgical History S/P laparoscopic sleeve gastrectomy History of repair of hiatal hernia History of arthroscopy of both knees History of cervical LEEP biopsy affecting care of mother, antepartum Hx of tubal ligation Hx of breast reduction, elective Family History Father Colon cancer Mother No problems noted. Brother Obesity Brother Obesity Son No problems noted. Daughter No problems noted. Daughter No problems noted. 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 Evidence of erythema within the skin fold. Excess skin of the medial thighs with erythema noted. Extrem General: Yes normal to inspection Assessment & Plan Assessment & Plan (1) S/P laparoscopic sleeve gastrectomy: Comment: 07/06/20 Code(s): Z98.84 - Bariatric surgery status Category: Surgical Plan: Check 3 year six-month labs as she has not had labs recently. Change meal plan: Premier protein, 1 ready to drink shake in the morning, Mid day, half premier protein ready to drink shake with an added 2 oz of unsweetened almond milk Meal in the evening with 6 forks of protein and 6 forks of vegetables Encouraged to go to the gym more than 3 days per week if she is able, burning 400 calories or more per day. (2) Excess skin: Code(s): L98.7 - Excessive and redundant skin and subcutaneous tissue Category: Medical Plan: Patient has lost significant weight. She has had recurrent rash of the abdominal pannus and medial thigh. Despite treatment with prescriptive antifungal creams, she continues to have recurrence. We will have her return to the office in approximately a month to assure stability of her weight. Consid eration for pictures and submission to her insurance company for medically necessary skin removal surgery of the abdomen and thighs. Orders: Orders Insulin Today E51.9 - Thiamine deficiency, unspecified, E55.9 - Vitamin D deficiency, unspecified, F32.9 - Major depressive disorder, single episode, unspecified, Z98.84 - Bariatric surgery status Hemoglobin A1c Today E51.9 - Thiamine deficiency, unspecified, E55.9 - Vitamin D deficiency, unspecified, F32.9 - Major depressive disorder, single episode, unspecified, Z98.84 - Bariatric surgery status Complete Blood Count Auto Diff Today E51.9 - Thiamine deficiency, unspecified, E55.9 - Vitamin D deficiency, unspecified, F32.9 - Major depressive disorder, single episode, unspecified, Z98.84 - Bariatric surgery status Vitamin B12 and Folate Today E51.9 - Thiamine deficiency, unspecified, E55.9 - Vitamin D deficiency, unspecified, F32.9 - Major depressive disorder, single episode, unspecified, Z98.84 - Bariatric surgery status Zinc Today E51.9 - Thiamine deficiency, unspecified, E55.9 - Vitamin D deficiency, unspecified, F32.9 - Major depressive disorder, single episode, unspecified, Z98.84 - Bariatric surgery status Vitamin B1 Today E51.9 - Thiamine deficiency, unspecified, E55.9 - Vitamin D deficiency, unspecified, F32.9 - Major depressive disorder, single episode, unspecified, Z98.84 - Bariatric surgery status TSH reflex Free T4 Today E51.9 - Thiamine deficiency, unspecified, E55.9 - Vitamin D deficiency, unspecified, F32.9 - Major depressive disorder, single ep isode, unspecified, Z98.84 - Bariatric surgery status Ferritin Today E51.9 - Thiamine deficiency, unspecified, E55.9 - Vitamin D deficiency, unspecified, F32.9 - Major depressive disorder, single episode, unspecified, Z98.84 - Bariatric surgery status Lipid Panel Today E51.9 - Thiamine deficiency, unspecified, E55.9 - Vitamin D deficiency, unspecified, F32.9 - Major depressive disorder, single episode, unspecified, Z98.84 - Bariatric surgery status IRON PROFILE Today E51.9 - Thiamine deficiency, unspecified, E55.9 - Vitamin D deficiency, unspecified, F32.9 - Major depressive disorder, single episode, unspecified, Z98.84 - Bariatric surgery status Comprehensive Met. Panel Today E51.9 - Thiamine deficiency, unspecified, E55.9 - Vitamin D deficiency, unspecified, F32.9 - Major depressive disorder, single episode, unspecified, Z98.84 - Bariatric surgery status C Reactive Protein Today E51.9 - Thiamine deficiency, unspecified, E55.9 - Vitamin D deficiency, unspecified, F32.9 - Major depressive disorder, single episode, unspecified, Z98.84 - Bariatric surgery status Vitamin A Today E51.9 - Thiamine deficiency, unspecified, E55.9 - Vitamin D deficiency, unspecified, F32.9 - Major depressive disorder, single episode, unspecified, Z98.84 - Bariatric surgery status Vitamin D 25-OH Total Today E51.9 - Thiamine deficiency, unspecified, E55.9 - Vitamin D deficiency, unspecified, F32.9 - Major depressive disorder, single episode, unspecified, Z98.84 - Bariatric surgery status Medications: Refilled clotrimazole 1% 1 appl topical BID 45 grams 3RF
[2024-01-20 15:10] VITALS: BP 129/80; PULSE 90; TEMP 35.7; O2SAT 97; BMI 26.0
== END 2024-01-20 15:41 | disposition home or self-care (01) ==
PROVIDERS: PCP Physician Assistant; Visit Provider Physician Assistant Surgical
DX: L98.7 Excessive and redundant skin and subcutaneous tissue (principal); Z98.84 Bariatric surgery status
CPT/HCPCS: 99213

== ENCOUNTER → 2024-01-20 14:51 | Outpatient (BNVA) | payer OTHER, SELFPAY | PROVIDERS: PCP Physician Assistant; Visit Provider Physician Assistant Surgical | DX: L98.7 Excessive and redundant skin and subcutaneous tissue (principal); Z98.84 Bariatric surgery status | CPT/HCPCS: 99212 ==

== ENCOUNTER 2024-03-17 11:57 | Outpatient (AMB) | payer OTHER, SELFPAY ==
--- NOTE | 2024-03-17 12:01 | MHC.OFFVISWM ---
VS Expanded 03/17/24 12:05 BP 129/87 Blood Pressure Location Rt brachial Blood Pressure Position Sitting Pulse 89 Pulse Source Pulse Oximeter Temp 96.6 F L Temperature Source Temporal Artery Scan Pulse Oximetry 99 Oxygen Delivery Method Room Air Height 5 ft 10 in Weight 177 lb 9.6 oz BMI 25.5 Intake Visit Reasons: OV PO LSG 07/06/20 -see note Allergies No Known Allergies Allergy (Verified 03/17/24 12:07) Medication List - Last Reconciled 03/17/24 by LILLIANA Chin calcium citrate-vitamin D3 315 mg-5 mcg (200 unit) 1 tab PO BID capsaicin 0.025% 1 appl topical BID celecoxib (Celebrex) 200 mg PO BID 30 days clotrimazole 1% 1 appl topical BID diclofenac sodium 1% grams topical dicyclomine 20 mg PO BID PRN iron, carbonyl (Iron Chews) 15 mg PO DAILY levofloxacin 500 mg PO DAILY 5 days multivit with min-folic acid 200 mcg (Womens Daily Gummies) 1 tab PO DAILY jmkktoydbguu-bfr-ykds-FA-vit K 45 mg iron- 800 mcg-120 mcg (Bariatric Multivitamins) 1 cap PO .daily in evening mupirocin 2% topical DAILY quetiapine 100 mg PO BEDTIME sertraline 100 mg PO DAILY sucralfate (Carafate) 10 mL PO BID HPI Comments Details: This?is a?48?yo female who is s/p LSG 07/06/2020. Seen in followup for excess skin issues. She has maintained stable weight since last OV in Jan 2024, currently -3.6lbs since last OV . She continues to have discomfort of the abdominal skin and excess skin of her thighs. This has caused rash, discomfort, pain. She has been applying clotrimazole antifungal prescription cream but this has not completely alleviated these issues. In the past pt has reported the following issues, and they have continued: -Walking is difficult due to chafing of skin of thighs; skin here ends up bleeding -It is difficult to put on pants due to excess skin of stomach and thighs. -It is difficult to maintain personal hygiene due to excess skin, pt cannot use sponges due to irritated skin; currently using bar soap but pt feels this does not adequately clean the area. Pt reports she continues to occasionally smoke. Present meal plan includes: given at last visit Premier protein, 1 ready to drink shake in the morning, Mid day, half premier protein ready to drink shake with an added 2 oz of unsweetened almond milk Meal in the evening with 6 forks of protein and 6 forks of vegetables Exercise routine includes: gym 3 days per week, doing both weight training and cardio, burning approximately 150-200 calories per session [facility] Medical History (Updated 03/17/24 @ 12:37 by LILLIANA Chin) Overweight Preop testing Chest pain Frequent UTI Intestinal malabsorption following gastrectomy Hiatal hernia Shortness of breath Vitamin B1 deficiency Vitamin D deficiency Preoperative examination Body mass index (BMI) of 40.1 to 44.9 in adult Morbid obesity due to excess calories Scoliosis Migraines Insomnia KENISHA I (cervical intraepithelial neoplasia I) Binge eating disorder Ovarian cyst Anxiety Depression Back pain Arthritis Surgical History S/P laparoscopic sleeve gastrectomy History of repair of hiatal hernia History of arthroscopy of both knees History of cervical LEEP biopsy affecting care of mother, antepartum Hx of tubal ligation Hx of breast reduction, elective Family History Father Colon cancer Mother No problems noted. Brother Obesity Brother Obesity Son No problems noted. Daughter No problems noted. Daughter No problems noted. 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 The excess skin is limiting her range of motion during exercise and activities of daily living, and causing discomfort. In addition she is experiencing ongoing problems of excess skin of upper thighs, resulting in frequent painful chafing/rashes refractory to topical Rx treatment. The excess skin makes exercise and activities of daily living difficult and painful. Will initiate treatment with systemic antifungals and monitor for response. Pt aware that she must be smoke free for 1 month prior to surgery. Patient is overweight with problems of excess skin of abdomen and thighs, and is not considered stable at this time. I spent a total of 30 minutes reviewing/updating records, examining the patient and counseling the patient on weight management as detailed above. Medications: New fluconazole 150 mg PO DAILY 4 tabs 0RF Refilled calcium citrate-vitamin D3 315 mg-5 mcg (200 unit) 1 tab PO BID 90 tabs 5RF clotrimazole 1% 1 appl topical BID 45 grams 3RF sucralfate (Carafate) 10 mL PO BID 420 mL 3RF
[2024-03-17 12:05] VITALS: BP 129/87; PULSE 89; TEMP 35.9; O2SAT 99; BMI 25.5
--- OUTSIDE RECORDS SUMMARY | 2024-03-17 12:49 | XMS_ITS | Clinical Summary ---
Author Organization [employer] [facility] ity Address [address] [place] [address] Care Team Providers Care Lab Specialist Name Role Phone Bella Truong MD Primary Care Provider [phone] Surgical History Surgery Date Site/Laterality Comments KNEE SURGERY PROCEDURE: HISTORICAL KNEE SURGERY; COMMENT: arthoscopic x 2, bilateral TUBAL LIGATION 2002 PROCEDURE: HISTORICAL TUBAL LIGATION; COMMENT: record in EMR BREAST SURGERY PROCEDURE: [place] UNLISTED PROCEDURE BREAST; COMMENT: bilateral reduction CERVICAL BIOPSY W/ LOOP ELECTRODE EXCISION 2004 PROCEDURE: [place] CONIZATION CERVIX W/WO D&C RPR ELTRD EXC; COMMENT: KENISHA 3, Dr. Dani Dumont in [place] Medical History Medical History Date Comments Tobacco abuse disorder 01/05/2013 DX:Tobacc o abuse disorder Severe cervical dysplasia, histologically confirmed 10/31/2004 DX:Severe cervical dysplasia , histologically confirmed; COMMENT: LEEP in [place], Pap smears normal 2005 & 2006 Pap 2012 KENISHA 1 (? HSIL), colposcopy 02/24/13 - Bx - All neg, ECC - neg Repeat pap in 12 months Family history of colon cancer 09/13/2013 D X:Family history of colon cancer Family History Medical History Relation Name Comments Colon cancer Father Diabetes Maternal Grandmother Hypertension Mother Other: kidney problem Other 1 niece Relation Name Status Comments Father Maternal Grandmother Mother Other 1 Other 2 Social History Tobacco Use Types Packs/Day Years Used Date Smoking Tobacco: Former Cigarettes Q uit: 01/15/2014 Smokeless Tobacco: Former Alcohol Use Standard Drinks/Week Comments Yes 0 (1 standard drink = 0.6 oz pur e alcohol) Sex and Gender Information Value Date Recorded Sex Assigned at Not on file Gender Identity Not on file Sexual Orientation Not on file Obstetrics History Plan of Treatment Health Maintenance Due Date Last Done Comments Breast Cancer Screening 1977 DTaP,Tdap,and Td Vaccines (1 - Tdap) 1996 Hepatitis B Vaccines (1 of 3 - 19+ 3-dose series) 1996 Cervical Cancer Screening: P ap Smear 1998 COVID-19 Vaccine ( - 2023-2 5 season) 2023 Influenza Vaccine (#1) 2023 HIB Vaccines Aged Out No longer eligi ble based on patient's age to complete this topic HPV Vaccines Aged Out No longer eligi ble based on patient's age to complete this topic Hepatitis A Vaccines Aged Out No long er eligible based on patient's age to complete this topic IPV Vaccines Aged Out No longer eligi ble based on patient's age to complete this topic MMR Vaccines Aged Out No longer eligi ble based on patient's age to complete this topic Meningococcal ACWY Vaccine Aged Out N o longer eligible based on patient's age to complete this topic Pneumococcal Vaccine: Pediat rics (0 to 5 Years) and At-Risk Patients (6 to 64 Years) Aged Out No longer eligible b ased on patient's age to complete this topic RSV Immunization Patients Un shelbi 20 months Aged Out No longer eligible b ased on patient's age to complete this topic Varicella Vaccines Aged Out No longer eligible based on patient's age to complete this topic Care Teams Lab Specialist Relationship Specialty Start Date End Date Bella Truong MD [address] [place] [id number] PCP - General 09/30/14
== END 2024-03-17 12:38 | disposition home or self-care (01) ==
PROVIDERS: PCP Physician Assistant; Visit Provider Physician Assistant Surgical
DX: L98.7 Excessive and redundant skin and subcutaneous tissue (principal); E66.3 Overweight; Z68.25 Body mass index [BMI] 25.0-25.9, adult; Z98.84 Bariatric surgery status
CPT/HCPCS: 99214; G2211

== ENCOUNTER → 2024-03-17 11:57 | Outpatient (BNVA) | payer OTHER, SELFPAY | PROVIDERS: PCP Physician Assistant; Visit Provider Physician Assistant Surgical | DX: E66.3 Overweight (principal); L98.7 Excessive and redundant skin and subcutaneous tissue; Z98.84 Bariatric surgery status; R21 Rash and other nonspecific skin eruption; Z68.25 Body mass index [BMI] 25.0-25.9, adult | CPT/HCPCS: 99212 ==

== ENCOUNTER 2024-05-12 11:42 | Outpatient (AMB) | payer OTHER, SELFPAY ==
--- NOTE | 2024-05-12 11:33 | MHC.OFFVISWM ---
Intake Visit Reasons: TV PO LSG 07/06/20 Allergies No Known Allergies Allergy (Verified 03/17/24 12:07) Medication List - Last Reconciled 05/12/24 by LILLIANA Chin calcium citrate-vitamin D3 315 mg-5 mcg (200 unit) 1 tab PO BID capsaicin 0.025% 1 appl topical BID celecoxib (Celebrex) 200 mg PO BID 30 days clotrimazole 1% 1 appl topical BID diclofenac sodium 1% grams topical dicyclomine 20 mg PO BID PRN iron, carbonyl (Iron Chews) 15 mg PO DAILY multivit with min-folic acid 200 mcg (Womens Daily Gummies) 1 tab PO DAILY kehpgwuzwtyy-iwe-fgrs-FA-vit K 45 mg iron- 800 mcg-120 mcg (Bariatric Multivitamins) 1 cap PO .daily in evening mupirocin 2% topical DAILY quetiapine 100 mg PO BEDTIME sertraline 100 mg PO DAILY sucralfate (Carafate) 10 mL PO BID HPI Comments Details: This?is a?49?yo female who is s/p LSG 07/06/2020. Seen in followup for excess skin issues. She has maintained stable weight since last OV in Jan 2024, currently -3.6lbs since last OV. . She continues to have discomfort of the abdominal skin and excess skin of her thighs. This has caused rash, discomfort, pain. She has been applying clotrimazole antifungal prescription cream but this has not completely alleviated these issues. In the past pt has reported the following issues, and they have continued: -Walking is difficult due to chafing of skin of thighs; skin here ends up bleeding -It is difficult to put on pants due to excess skin of stomach and thighs. -It is difficult to maintain personal hygiene due to excess skin, pt cannot use sponges due to irritated skin; currently using bar soap but pt feels this does not adequately clean the area. Pt reports she continues to occasionally smoke. Present meal plan includes: given at last visit Premier protein, 1 ready to drink shake in the morning, Mid day, half premier protein ready to drink shake with an added 2 oz of unsweetened almond milk Meal in the evening with 6 forks of protein and 6 forks of vegetables Exercise routine includes: gym 3 days per week, doing both weight training and cardio, burning approximately 150-200 calories per session [facility] Medical History (Updated 03/17/24 @ 12:37 by LILLIANA Chin) Overweight Preop testing Chest pain Frequent UTI Intestinal malabsorption following gastrectomy Hiatal hernia Shortness of breath Vitamin B1 deficiency Vitamin D deficiency Preoperative examination Body mass index (BMI) of 40.1 to 44.9 in adult Morbid obesity due to excess calories Scoliosis Migraines Insomnia KENISHA I (cervical intraepithelial neoplasia I) Binge eating disorder Ovarian cyst Anxiety Depression Back pain Arthritis Surgical History S/P laparoscopic sleeve gastrectomy History of repair of hiatal hernia History of arthroscopy of both knees History of cervical LEEP biopsy affecting care of mother, antepartum Hx of tubal ligation Hx of breast reduction, elective Family History Father Colon cancer Mother No problems noted. Brother Obesity Brother Obesity Son No problems noted. Daughter No problems noted. Daughter No problems noted. 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 The excess skin is limiting her range of motion during exercise and activities of daily living, and causing discomfort. In addition she is experiencing ongoing problems of excess skin of upper thighs, resulting in frequent painful chafing/rashes refractory to topical Rx treatment. The excess skin makes exercise and activities of daily living difficult and painful. Will initiate treatment with systemic antifungals and monitor for response. Pt aware that she must be smoke free for 1 month prior to surgery. Also due for bloodwork, previously ordered. Will get a weight check next week. RTC 1 month for in person visit to monitor response to PO antifungals. Can take photos for insurance purposes if no improvement. Medications: New fluconazole 200 mg PO .weekly 4 tabs 0RF
--- OUTSIDE RECORDS SUMMARY | 2024-05-12 14:09 | XMS_ITS | Clinical Summary ---
Author Organization [employer] [facility] ity Address [address] [place] [address] Care Team Providers Care Cloth Bolt Bander Name Role Phone Bella Truong MD Primary Care Provider [phone] Surgical History Surgery Date Site/Laterality Comments KNEE SURGERY PROCEDURE: HISTORICAL KNEE SURGERY; COMMENT: arthoscopic x 2, bilateral TUBAL LIGATION 2002 PROCEDURE: HISTORICAL TUBAL LIGATION; COMMENT: record in EMR BREAST SURGERY PROCEDURE: [place] UNLISTED PROCEDURE BREAST; COMMENT: bilateral reduction CERVICAL BIOPSY W/ LOOP ELECTRODE EXCISION 2004 PROCEDURE: [place] CONIZATION CERVIX W/WO D&C RPR ELTRD EXC; COMMENT: KENISHA 3, Dr. Dani Dumont in [place] Medical History Medical History Date Comments Tobacco abuse disorder 01/05/2013 DX:Tobacc o abuse disorder Severe cervical dysplasia, histologically confirmed 10/31/2004 DX:Severe cervical dysplasia , histologically confirmed; COMMENT: LEEP in [place], Pap smears normal 2005 & 2006 Pap [...] drink = 0.6 oz pur e alcohol) Comments Unknown Sex and Gender Information Value Date Recorded Sex Assigned at Not on file Legal Sex Female 1:55 PM EST Gender Identity Not on file Sexual Orientation [...] patient's age to complete this topic Meningococcal B Vacine Aged Out No lo nger eligible based on patient's age to complete [...] age to complete this topic Care Teams Cloth Bolt Bander Relationship Specialty Start Date End Date Bella Truong MD [address] [place] [phone] PCP - General 09/30/14
== END 2024-05-12 11:56 | disposition home or self-care (01) ==
LOC: HO.HBS 11:42
PROVIDERS: PCP Physician Assistant; Visit Provider Physician Assistant Surgical
DX: L98.7 Excessive and redundant skin and subcutaneous tissue (principal); E66.3 Overweight; Z68.25 Body mass index [BMI] 25.0-25.9, adult; Z98.84 Bariatric surgery status
CPT/HCPCS: 99214; G2211

== ENCOUNTER → 2024-05-12 11:42 | Outpatient (BNVA) | payer OTHER, SELFPAY | PROVIDERS: PCP Physician Assistant; Visit Provider Physician Assistant Surgical ==

== ENCOUNTER 2024-06-09 13:33 | Outpatient (AMB) | payer OTHER, SELFPAY ==
--- NOTE | 2024-06-09 13:40 | MHC.OFFVISWM ---
VS Expanded 06/09/24 13:51 BP 138/83 Blood Pressure Location Rt brachial Blood Pressure Position Sitting Pulse 70 Pulse Source Pulse Oximeter Temp 98.3 F Temperature Source Temporal Artery Scan Pulse Oximetry 98 Oxygen Delivery Method Room Air Height 5 ft 10 in Weight 185 lb 6.4 oz BMI 26.6 Body Fat % 30.0 Body Fat Mass 55.6 Fat Free Mass 129.6 Visceral Fat Rating 0 Body Water % 49.9 Body Water Mass 92.4 Muscle Mass/Score 123.0 Basal Metabolic Rate/Score 2,844 Intake Visit Reasons: OV PO LSG 07/06/20 Allergies No Known Allergies Allergy (Verified 03/17/24 12:07) Medication List - Last Reconciled 06/09/24 by LILLIANA Chin calcium citrate-vitamin D3 315 mg-5 mcg (200 unit) 1 tab PO BID capsaicin 0.025% 1 appl topical BID clotrimazole 1% 1 appl topical BID diclofenac sodium 1% grams topical dicyclomine 20 mg PO BID PRN fluconazole 200 mg PO .weekly iron, carbonyl (Iron Chews) 15 mg PO DAILY multivit with min-folic acid 200 mcg (Womens Daily Gummies) 1 tab PO DAILY juatbinzkxqo-fmg-osnr-FA-vit K 45 mg iron- 800 mcg-120 mcg (Bariatric Multivitamins) 1 cap PO .daily in evening mupirocin 2% topical DAILY quetiapine 100 mg PO BEDTIME sertraline 100 mg PO DAILY sucralfate (Carafate) 10 mL PO BID HPI Comments Details: This?is a?49?yo female who is s/p LSG 07/06/2020. Seen in followup for excess skin issues. She has maintained stable weight since OV in Jan 2024 with BMI <27. She continues to have discomfort of the abdominal skin and excess skin of her thighs. This has caused rash, discomfort, pain. She has been applying clotrimazole antifungal prescription cream but this has not completely alleviated these issues. She has also tried two rounds of treatment with PO fluconazole, without resolution. In the past pt has reported the following issues, and they have continued: -Walking is difficult due to chafing of skin of thighs; skin here ends up bleeding -It is difficult to put on pants due to excess skin of stomach and thighs. -It is difficult to maintain personal hygiene due to excess skin, pt cannot use sponges due to irritated skin; currently using bar soap but pt feels this does not adequately clean the area. Pt reports she continues to occasionally smoke. Plans to smoke her remaining 4 cigarettes and then quit. Present meal plan includes: Premier protein, 1 ready to drink shake in the morning Mid day, half premier protein ready to drink shake with an added 2 oz of unsweetened almond milk Meal in the evening with 6 forks of protein and 6 forks of vegetables Exercise routine includes: gym 3 days per week, doing both weight training and cardio, burning approximately 150-200 calories per session Pt reports she is no longer taking Celebrex. [facility] Medical History (Updated 03/17/24 @ 12:37 by LILLIANA Chin) Overweight Preop testing Chest pain Frequent UTI Intestinal malabsorption following gastrectomy Hiatal hernia Shortness of breath Vitamin B1 deficiency Vitamin D deficiency Preoperative examination Body mass index (BMI) of 40.1 to 44.9 in adult Morbid obesity due to excess calories Scoliosis Migraines Insomnia KENISHA I (cervical intraepithelial neoplasia I) Binge eating disorder Ovarian cyst Anxiety Depression Back pain Arthritis Surgical History S/P laparoscopic sleeve gastrectomy History of repair of hiatal hernia History of arthroscopy of both knees History of cervical LEEP biopsy affecting care of mother, antepartum Hx of tubal ligation Hx of breast reduction, elective Family History Father Colon cancer Mother No problems noted. Brother Obesity Brother Obesity Son No problems noted. Daughter No problems noted. Daughter No problems noted. 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 Physical Exam Const General: cooperative, comfortable and no acute distress Orientation/consciousness: patient oriented x3 GI Other: soft, nontender, nondistended, incisions well healed, no hernia, no masses Grade II pannus, some excoriation in skin fold Skin Other: large amount of excess skin of thighs, with contact of inner thighs from knees to top of thighs; multiple skin folds of inner thighs Neuro General: patient oriented x3 Assessment & Plan Assessment & Plan (1) Overweight: Code(s): E66.3 - Overweight Category: Medical (2) Excess skin: Code(s): L98.7 - Excessive and redundant skin and subcutaneous tissue Category: Medical (3) S/P laparoscopic sleeve gastrectomy: Comment: 07/06/20 Code(s): Z98.84 - Bariatric surgery status Category: Surgical Plan Pt is experiencing ongoing problems of excess skin of abdomen, resulting in frequent painful and itchy rashes refractory to topical Rx treatment as well as two rounds of systemic antimicrobial treatment. The excess skin is limiting her range of motion during exercise and activities of daily living, and causing discomfort. In addition she is experiencing ongoing problems of excess skin of upper thighs, resulting in frequent painful chafing/rashes refractory to topical Rx treatment. The excess skin makes exercise and activities of daily living difficult and painful. Pt aware that she must be smoke free for 1 month prior to surgery. Also due for bloodwork, previously ordered. Will add nicotine testing to bloodwork. Photos taken today. Once labs/nicotine level results come back will submit to insurance. Orders: Orders Nicotine and Metabolite Ur, Qt Today Z01.818 - Encounter for other preprocedural examination
[2024-06-09 13:51] VITALS: BP 138/83; PULSE 70; TEMP 36.8; O2SAT 98; BMI 26.6
--- OUTSIDE RECORDS SUMMARY | 2024-06-09 15:38 | XMS_ITS | Clinical Summary ---
Author Organization [facility] Address [address] [place] [address] Phone Care Team Providers Care Playground Director Name Role Phone Alan Rojas Primary Care Provider [phone] Allergies No known active allergies Encounters Date Type Department Care Team Description 05/23/2024 10:27 PM EDT - 05/24/2024 1:34 AM EDT Emergency [facility] Emergency [address] [place] [address] Migraine without aura and without status migrainosus, not intractable (Primary Dx) Discharge Disposition: Home or Self Care from Last 3 Months Surgical History Surgery Date Site/Laterality Comments KNEE SURGERY PROCEDURE: HISTORICAL KNEE SURGERY; COMMENT: arthoscopic x 2, bilateral TUBAL LIGATION 2002 PROCEDURE: HISTORICAL TUBAL LIGATION; COMMENT: record in EMR BREAST SURGERY PROCEDURE: [place] UNLISTED PROCEDURE BREAST; COMMENT: bilateral reduction CERVICAL BIOPSY W/ LOOP ELECTRODE EXCISION 2004 PROCEDURE: [place] CONIZATION CERVIX W/WO D&C RPR ELTRD EXC; COMMENT: KENISHA 3, Dr. Dani Dumont in [place] Medical History Medical History Date Comments Tobacco abuse disorder 01/05/2013 DX:Tobacc o abuse disorder Severe cervical dysplasia, histologically confirmed 10/31/2004 DX:Severe cervical dysplasia , histologically confirmed; COMMENT: LEEP in [place], Pap smears normal 2005 & 2006 Pap [...] Information Value Date Recorded Sex Assigned at Female 05/23/2024 10:36 PM EDT Legal Sex Female 1:55 PM EST Gender Identity Female 05/23/2024 10:36 PM EDT Sexual Orientation Straight 05/23/2024 10 :36 PM EDT Obstetrics History Last Filed Vital Signs Vital Sign Reading Time Taken Comments Blood Pressure 135/90 05/23/2024 9:37 PM EDT Pulse 64 05/23/2024 9:37 PM EDT Temperature 36.3 ??C (97.3 ??F) 05/23/2024 9:37 PM ED T Respiratory Rate 20 05/23/2024 9:37 PM EDT Oxygen Saturation 99% 05/23/2024 9:37 PM EDT Inhaled Oxygen Concentration - - Weight 80.7 kg (178 lb) 05/23/2024 9:37 PM EDT Height 177.8 cm (5' 10 ) 05/23/2024 9:37 PM EDT Body Mass Index 25.54 05/23/2024 9:37 PM EDT Plan of Treatment Health Maintenance Due Date Last Done Comments Breast Cancer Screening 1977 Hepatitis B Vaccines (1 of 3 - 19+ 3-dose series) 1996 Cervical Cancer Screening: Pap Smear 1998 Colorectal Cancer Screening: Colonoscopy 05/23/2024 Depression Screening 05/23/2024 HIV Screening 05/23/2024 Hepatitis C Screening 05/23/2024 Social Influencers of Health Screening 05/23/2024 DTaP,Tdap,and Td Vaccines (4 - Td or Tdap) 08/27/2029 08/28/2019, 06/06/2017, 09/02/2012 COVID-19 Vaccine Completed 01/28/2024, , 09/26/2020, Additional history exists Influenza Vaccine Completed 01/28/2024, , 03/02/2022, Additional history exists HIB Vaccines Aged Out No longer eligi [...] age to complete this topic Meningococcal B Vaccine Aged Out No l onger eligible based on patient's age to complete this topic Pneumococcal Vaccine: Pediatrics (0 to 5 Years) and At-Risk Patients (6 to 64 Years) Aged Out No longer eligible based on patient's age to complete this topic RSV Immunization Patients Under 20 months Aged Out No longer eligible based on patient's age to complete this topic Varicella Vaccines Aged Out No longer eligible based on patient's age to complete this topic Insurance [facility] MEDICAID ADVANTAGE Care Teams Playground Director Relationship Specialty Start Date End Date Alan Rojas DO [address] [place] [id number] PCP - General Family Medicine 05/23/24
== END 2024-06-09 15:27 | disposition home or self-care (01) ==
LOC: HO.HBS 13:34
PROVIDERS: PCP Physician Assistant; Visit Provider Physician Assistant Surgical
DX: E66.3 Overweight (principal); Z68.26 Body mass index [BMI] 26.0-26.9, adult; L98.7 Excessive and redundant skin and subcutaneous tissue; Z98.84 Bariatric surgery status
CPT/HCPCS: 99214; G2211

== ENCOUNTER → 2024-06-09 13:33 | Outpatient (BNVA) | payer OTHER, SELFPAY | PROVIDERS: PCP Physician Assistant; Visit Provider Physician Assistant Surgical | DX: E66.3 Overweight (principal); L98.7 Excessive and redundant skin and subcutaneous tissue; Z98.84 Bariatric surgery status; Z68.26 Body mass index [BMI] 26.0-26.9, adult | CPT/HCPCS: 99212 ==

== ENCOUNTER 2024-06-18 09:03 | Outpatient (REF) | payer OTHER, SELFPAY ==
--- OUTSIDE RECORDS SUMMARY | 2024-06-18 09:32 | XMS_ITS | Clinical Summary ---
Author Organization [facility] Address [address] [place] [address] Phone Care Team Providers Care Oil Field Equipment Mechanic Supervisor Name Role Phone Alan Rojas Primary Care Provider [phone] Allergies No known active allergies Encounters Date Type Department Care Team Description 05/23/2024 10:27 PM EDT - 05/24/2024 1:34 AM EDT Emergency [facility] Emergency [address] [place] [address] Migraine without aura and without status migrainosus, not intractable (Primary Dx) Discharge Disposition: Home or Self Care from Last 3 Months Surgical History Surgery Date Site/Laterality Comments KNEE SURGERY PROCEDURE: HISTORICAL KNEE SURGERY; COMMENT: arthoscopic x 2, bilateral TUBAL LIGATION 2002 PROCEDURE: HISTORICAL TUBAL LIGATION; COMMENT: record in EMR BREAST SURGERY PROCEDURE: [place] UNLISTED PROCEDURE BREAST; COMMENT: bilateral reduction CERVICAL BIOPSY W/ LOOP ELECTRODE EXCISION 2004 PROCEDURE: [place] CONIZATION CERVIX W/WO D&C RPR ELTRD EXC; COMMENT: KENISHA 3, Dr. Dani Dumont in [place] Medical History Medical History Date Comments Tobacco abuse disorder 01/05/2013 DX:Tobacc o abuse disorder Severe cervical dysplasia, histologically confirmed 10/31/2004 DX:Severe cervical dysplasia , histologically confirmed; COMMENT: LEEP in [place], Pap smears normal 2005 & 2006 Pap [...] patient's age to complete this topic Insurance [facility] MEDICAID ADVANTAGE Care Teams Oil Field Equipment Mechanic Supervisor Relationship Specialty Start Date End Date Alan Rojas DO [address] [place] [id number] PCP - General Family Medicine 05/23/24
[2024-06-18 09:39] LABS: MANUAL DIFF FLAG NO
[2024-06-18 10:56] LABS: Basophils Absolute Auto 0.1 X10*3/uL (0.0-0.2); Basophils Percent Auto 1.1 % (0-2); Eosinophils Absolute Auto 0.1 X10*3/uL (0.0-0.4); Hematocrit 36.1 % (37.0-47.0); Hemoglobin 11.7 g/dl (12.0-16.0); Imm Gran Abs Auto 0.01 X10*3/uL (0.00-0.03); Imm Gran Pct Auto 0.2 % (0.0-0.4); Lymphocytes Absolute Auto 1.1 X10*3/uL (1.2-4.9); Lymphocytes Percent Auto 25.6 % (20-40); Mean Corpuscular HGB Conc 32.4 g/dl (31.0-35.0); Mean Corpuscular Hemoglobin 27.4 pg (27.0-33.0); Mean Corpuscular Volume 84.5 fL (80.0-98.0); Mean Platelet Volume 10.8 fL (9.4-12.3); Monocytes Absolute Auto 0.5 X10*3/uL (0.1-1.2); Monocytes Percent Auto 10.9 % (2-11); Neutrophils Absolute Auto 2.7 x10*3/uL (2.0-8.3); Neutrophils Percent Auto 60.2 % (45-73); Platelet Count 323 X10*3/uL (160-400); Red Blood Count 4.27 X10*6/uL (4.20-5.50); Red Cell Distribution Width 15.4 % (11.0-16.0); White Blood Count 4.4 X10*3/uL (4.8-10.8)
[2024-06-18 11:46] LABS: Alanine Aminotransferase 14 U/L (0-31); Albumin Level 4.1 g/dL (3.5-5.0); Alkaline Phosphatase 67 U/L (39-117); Anion Gap 10 (12-20); Aspartate Amino Transferase 18 U/L (5-31); Bilirubin Total 0.4 mg/dL (0.0-1.0); Blood Urea Nitrogen 15 mg/dL (9-16); C Reactive Protein 0.12 mg/dL (< or = 0.50); Calcium 9.2 mg/dL (8.4-10.2); Carbon Dioxide 29 mmol/L (22-29); Chloride 106 mmol/L (96-108); Cholesterol 148 mg/dL (<200); Estimated Glomerular Filt Rate > 60; HDL Cholesterol 66 mg/dL (>40); Iron 88 mcg/dL (30-160); LDL Cholesterol Calculated 67 mg/dL (<100); Percent Iron Saturation 29 % (15-50); Potassium 4.3 mmol/L (3.3-5.1); Sodium 141 mmol/L (135-145); Total Iron Binding Capacity 306 mcg/dL (228-428); Triglycerides 76 mg/dL (<150); Unsaturated Iron Binding 218 ug/dL
[2024-06-18 11:47] LABS: Estimated Average Glucose 105 mg/dL; Ferritin 33 ng/mL (10-250); Hemoglobin A1C 103.3435 umol/L; Hemoglobin A1c % 5.3 % (<6.0); TSH reflex Free T4 0.83 uIU/mL (0.32-4.0); Total Hemoglobin (HGBA1C) 3046.4874 umol/L; Vitamin D 25-OH Total 26.3 ng/mL (>30)
[2024-06-18 11:56] LABS: Folate 8.3 ng/mL (> or = 4.0); Vitamin B12 278 pg/mL (200-900)
[2024-06-18 11:57] LABS: Glucose Random 60 mg/dL (60-115)
[2024-06-18 12:06] LABS: Insulin 18 uU/mL (2-29)
[2024-06-22 12:48] LABS: Zinc 61 mcg/dL (60-130)
[2024-06-23 02:08] LABS: Vitamin A 51 mcg/dL (38-98)
[2024-06-23 11:17] LABS: Cotinine, U 121 ng/mL; Nicotine, U <2 ng/mL
== END 2024-06-18 09:04 | disposition home or self-care (01) ==
LOC: HO.LAB 09:03
PROVIDERS: Physician Assistant Surgical; PCP Family Medicine; Visit Provider Physician Assistant Surgical
DX: Z01.818 Encounter for other preprocedural examination (principal); F32.9 Major depressive disorder, single episode, unspecified; E51.9 Thiamine deficiency, unspecified; E55.9 Vitamin D deficiency, unspecified; Z98.84 Bariatric surgery status
CPT/HCPCS: 36415; 80053; 80061; 80323; 82306; 82607; 82728; 82746; 83036; 83525; 83540; 84425; 84443; 84590; 84630; 85025; 86140

== ENCOUNTER 2024-06-27 10:16 | Emergency (ER) | payer OTHER, SELFPAY ==
--- NOTE | ~2024-06-27 | XR_ITS ---
CLINICAL HISTORY: left sided rib pain Two views of the left ribs Comparison: None Findings: The left lung is clear with no evidence of pneumothorax. Cardiac and mediastinal contours are normal. No displaced rib fracture identified. Impression: No rib fracture identified. No pneumothorax. This document has been electronically signed by: Ricky Hopper MD on 06/27/2024 11:59:14
[2024-06-27 10:36] VITALS: BP 114/76; PULSE 96; RESP 18; TEMP 36.6; O2SAT 100; BMI 27.8
--- NOTE | 2024-06-27 11:25 | ED_ITS ---
HPI - General Adult General Chief complaint: General Medical Stated complaint: Rib injury Time Seen by Provider: 06/27/24 11:21 Source: patient, RN notes reviewed and old records reviewed Mode of arrival: ambulatory Limitations: no limitations History of Present Illness ED Provider: Nakia HPI narrative: Patient is a 49-year-old female presenting to the emergency department with complaint of left anterior rib pain for the past few days. States that she saw a friend she had not seen in a long time and when they hug T picked her up off the ground. Since that time she has had left anterior rib pain. Denies shortness of breath or difficulty breathing. Has been using Tylenol, ibuprofen, diclofenac, capsaicin cream with little relief. States he has been unable to sleep due to the pain. MD complaint: rib pain Onset (ago): day(s) Related Data Home Medications ?Medication ?Instructions ?Recorded ?Confirmed iron, carbonyl 15 mg chewable 15 mg PO DAILY 01/28/20 06/09/24 tablet (Iron Chews) capsaicin 0.025 % topical cream 1 appl topical BID 02/27/21 06/09/24 diclofenac sodium 1 % topical gel g topical 02/27/21 06/09/24 quetiapine 100 mg tablet 100 mg PO BEDTIME 02/27/21 06/09/24 sertraline 100 mg tablet 100 mg PO DAILY 02/27/21 06/09/24 mupirocin 2 % topical ointment topical DAILY 03/20/21 06/09/24 dicyclomine 20 mg tablet 20 mg PO BID PRN 06/20/21 06/09/24 Previous Rx's ?Medication ?Instructions ?Recorded nxzqjkaf-jiptqnnt-dudy 45 mg-folic 1 cap PO .daily in evening #90 caps 08/02/22 acid 800 mcg-vit K 120 mcg capsule (Bariatric Multivitamins) calcium 315 mg (as 1 tab PO BID #90 tabs 03/17/24 citrate)-vitamin D3 5 mcg (200 unit) tablet fluconazole 200 mg tablet 200 mg PO .weekly #4 tabs 05/12/24 clotrimazole 1 % topical cream 1 appl topical BID #45 grams 06/02/24 sucralfate 100 mg/mL oral 10 ml PO BID #420 mL 06/02/24 suspension (Carafate) multivitamin with minerals-folic 1 tab PO DAILY #90 tabs 06/09/24 acid 200 mcg chewable tablet (Womens Daily Gummies) lidocaine 5 % topical patch 1 patch topical DAILY #15 ea 06/27/24 oxycodone 5 mg capsule 5 mg PO Q8H PRN severe pain (scale 06/27/24 score 7-10) #6 caps Allergies Allergy/AdvReac Type Severity Reaction Status Date / Time No Known Allergies Allergy Verified 06/27/24 10:38 Review of Systems Review of Systems: As per HPI Yes all other systems are reviewed and are negative [facility] Past Medical History Medical History (Updated 06/27/24 @ 12:26 by Imelda Yee NP) Overweight Preop testing Chest pain Frequent UTI Intestinal malabsorption following gastrectomy Hiatal hernia Shortness of breath Vitamin B1 deficiency Vitamin D deficiency Preoperative examination Body mass index (BMI) of 40.1 to 44.9 in adult Morbid obesity due to excess calories Scoliosis Migraines Insomnia KENISHA I (cervical intraepithelial neoplasia I) Binge eating disorder Ovarian cyst Anxiety Depression Back pain Arthritis Surgical History S/P laparoscopic sleeve gastrectomy History of repair of hiatal hernia History of arthroscopy of both knees History of cervical LEEP biopsy affecting care of mother, antepartum Hx of tubal ligation Hx of breast reduction, elective Family History Family History Father Colon cancer Mother No problems noted. Brother Obesity Brother Obesity Son No problems noted. Daughter No problems noted. Daughter No problems noted. 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 Blood pressure normal. Heart rate normal. Respiratory rate normal. Temperature normal. Oxygen saturation normal. Const General: cooperative, healthy appearing and no acute distress Orientation/consciousness: oriented to person, oriented to place, oriented to time and patient oriented x3 Limitations: no limitations HENMT Head: Yes normocephalic and Yes atraumatic Ears: external ears normal General nose exam: Normal external nose present Face and sinus: Yes face symmetric Mouth: oropharynx normal and moist mucous membranes Throat: Yes uvula midline Eyes Pupils: Equal, round and reactive pupils present Neck Neck: Yes normal visual inspection and Yes supple Chest Chest palpation & inspection: normal inspection of the chest and tenderness rib left mid-clavicular line involving the 6th rib, involving the 7th rib and invol ving the 8th rib Resp Effort & Inspection: normal respiratory effort and able to speak in complete sentences Auscultation: clear to auscultation bilaterally Cardio Rate: regular rate Rhythm: regular rhythm Heart sounds: S1 normal heart sound present and S2 normal heart sound present GI Palpation (GI): Soft to palpation and nontender Auscultation: normoactive bowel sounds General: Yes no CVA tenderness Back/Spine/Pelvis Back: no CVA tenderness Skin General skin exam: elasticity normal and turgor normal Neuro General: oriented to person, oriented to place, oriented to time, patient oriented x3, moves all extremities, no focal motor deficits and CN's II-XI intact bilaterally Cranial nerves: Yes Equal, round and reactive pupils present Cognition (Neuro): normal cognition Extrem General: Yes full ROM, Yes no pedal edema and Yes no calf tenderness Psych Mental Status: mental status grossly normal Affect: normal affect Thought process: Normal thought process present Medications Administered Discontinued Medications Generic Name Dose Route Start Last Admin Trade Name Freq PRN Reason Stop Dose Admin Oxycodone HCl 5 mg 06/27/24 11:44 06/27/24 12:06 Oxycodone Hcl Immed Release 5 Mg Tablet PO 06/27/24 11:45 5 mg ONCE ONE Administration Medical Decision Making Medical Decision Making MDM Narrative: Patient is a 49-year-old female presenting to the emergency department with complaint of left anterior rib pain for the past few days. On exam patient is awake, A+Ox3, VS WNL, afebrile, normal neurological exam without focal deficits, physical exam findings as above. Given reported symptoms and physical exam findings, initial differential includes but is not limited to contusion, muscle strain, rib fracture. X-ray notable for no evidence of fracture. My interpretation is in agreement with the radiologist's interpretation. No concerns on review of EXHAUST TENDER. Will send prescription for a few oxycodone for severe pain, advised alternating tylenol and motrin, will also send lidocaine patches. Patient advised to follow up with PCP. Return precautions discussed at bedside. Patient verbalized understanding of and agreement with plan. Differential Diagnosis Differential Diagnoses: The differential diagnosis associated with the presentation includes As per [facility] Admission/Observation Consideration of admission/observation: Escalation of care including admission/observation considered Patient would have been admitted to the hospital had their work up had any findings where hospital admission was appropriate and their clinical presentation warranted hospital admission. Independent Interpretation I performed an independent interpretation of an: Plain X-Ray Interpretation: NO acute fracture left ribs Radiology Impression Discussion of test interpretation with radiology: I have reviewed the radiologist's reading. Radiologist Impression: Findings: The left lung is clear with no evidence of pneumothorax. Cardiac and mediastinal contours are normal. No displaced rib fracture identified. Impression: No rib fracture identified. No pneumothorax. External Record Review External record reviewed: Inpatient record, Office record and Outpatient record Prescription Management I considered prescription management with: Pain Medication Discharge Plan Discharge Clinical Impression: Rib pain on left side Patient Disposition: Home, Self-Care Additional Instructions: You were evaluated in the emergency department today for your rib pain. Your x- ray did not show evidence of fracture. You are being prescribed a few oxycodone for severe pain. We recommend that you alternate Tylenol and ibuprofen every 3 hours. For example, take Tylenol at 9:00 a.m. then ibuprofen at noon, then Tylenol at 3:00 p.m., etc.. You are also being prescribed topical lidocaine patches which you can wear for up to 12 hours in a 24 hour period. Do not apply heat directly over the patches. Follow up with your primary care provider. Return to the emergency department if you develop shortness of breath or difficulty breathing or any other new or concerning symptoms. Prescriptions: New lidocaine 5 % adhesive patch,medicated 1 patch topical DAILY Qty: 15 0RF Rx Instructions: leave on most painful area for up to 12 hrs oxycodone 5 mg capsule 5 mg PO Q8H PRN (Reason: severe pain (scale score 7-10)) Qty: 6 0RF Rx Instructions: Partial Fill upon patient request. No Action clotrimazole 1 % cream 1 appl topical BID Qty: 45 3RF sucralfate [Carafate] 100 mg/mL suspension 10 ml PO BID Qty: 420 3RF Iron Chews 15 mg tablet,chewable 15 mg PO DAILY diclofenac sodium 1 % gel topical quetiapine 100 mg tablet 100 mg PO BEDTIME capsaicin 0.025 % cream 1 appl topical BID sertraline 100 mg tablet 100 mg PO DAILY mupirocin 2 % ointment topical DAILY dicyclomine 20 mg tablet 20 mg PO BID PRN Bariatric Multivitamins 45 mg iron- 800 mcg-120 mcg capsule 1 cap PO .daily in evening Qty: 90 3RF calcium citrate-vitamin D3 315 mg-5 mcg (200 unit) tablet 1 tab PO BID Qty: 90 5RF fluconazole 200 mg tablet 200 mg PO .weekly Qty: 4 0RF multivit with min-folic acid [Womens Daily Gummies] 200 mcg tablet,chewable 1 tab PO DAILY Qty: 90 3RF Print Language: Mongolian
[2024-06-27 11:26] VITALS: BP 110/70; PULSE 73; RESP 18; TEMP 36.4; O2SAT 98
--- NOTE | 2024-06-27 11:36 | PC.NURSE ---
Patient presents after getting a hug, lifting her off the ground by her friend. Respirations even and non-labored. No sob noted. c/o left rib pain increasing with movement and cough.
[2024-06-27] MEDS: oxyCODONE HCl Immed Release 5 MG TABLET PO (12:06)
[2024-06-27 12:33] VITALS: BP 137/85; PULSE 68; RESP 20; O2SAT 98
[2024-06-27 12:37] VITALS: BP 137/85; PULSE 68; RESP 20; TEMP 36.9; O2SAT 98
== END 2024-06-27 12:42 | disposition home or self-care (01) ==
PROVIDERS: Emergency Provider Emergency Medicine Emergency Medical Services; PCP Family Medicine
DX: R07.81 Pleurodynia (principal)
CPT/HCPCS: 71100; 99283; 99284

== ENCOUNTER → 2024-06-27 10:55 | Outpatient (BNV) | payer OTHER, SELFPAY | PROVIDERS: Emergency Provider Emergency Medicine Emergency Medical Services; PCP Family Medicine; Visit Provider Radiology Vascular & Interventional Radiology | DX: R07.89 Other chest pain (principal) | CPT/HCPCS: 71100 ==

== ENCOUNTER 2024-07-04 09:32 | Emergency (ER) | payer OTHER, SELFPAY ==
--- NOTE | ~2024-07-04 | XR_ITS ---
CLINICAL HISTORY: pain 3 view, chest and left ribs Comparison: CR - XR RIBS LT 2V - 06/27/24 10:56 EDT Findings: No displaced rib fractures are identified. The lungs are clear. No pleural effusion or pneumothorax. IMPRESSION: No acute findings. This document has been electronically signed by: Kale Abraham DO on 07/04/2024 10:47:23
[2024-07-04 09:36] VITALS: BP 121/74; PULSE 81; RESP 18; TEMP 36.3; O2SAT 100; BMI 25.8
--- OUTSIDE RECORDS SUMMARY | 2024-07-04 09:47 | XMS_ITS | Clinical Summary ---
Author Organization [facility] Address [address] [place] [address] Phone Care Team Providers Care Modeling Agent Name Role Phone Alan Rojas Primary Care Provider [phone] Allergies No known active allergies Encounters Date Type Department Care Team Description 05/23/2024 10:27 PM EDT - 05/24/2024 1:[address] [facility] Emergency [address] [place] [address] Migraine without aura and without status migrainosus, not intractable (Primary Dx) Discharge Disposition: Home or Self Care from Last 3 Months Surgical History Surgery Date Site/Laterality Comments KNEE SURGERY PROCEDURE: HISTORICAL KNEE SURGERY; COMMENT: arthoscopic x 2, bilateral TUBAL LIGATION 2002 PROCEDURE: HISTORICAL TUBAL LIGATION; COMMENT: record in EMR BREAST SURGERY PROCEDURE: [place] UNLISTED PROCEDURE BREAST; COMMENT: bilateral reduction CERVICAL BIOPSY W/ LOOP ELECTRODE EXCISION 2004 PROCEDURE: [place] CONIZATION CERVIX W/WO D&C RPR ELTRD EXC; COMMENT: KENSIHA 3, Dr. Dani Dumont in [place] Medical History Medical History Date Comments Tobacco abuse disorder 01/05/2013 DX:Tobacc o abuse disorder Severe cervical dysplasia, histologically confirmed 10/31/2004 DX:Severe cervical dysplasia , histologically confirmed; COMMENT: LEEP in [place], Pap smears normal 2005 & 2006 Pap [...] patient's age to complete this topic Insurance [facility] MEDICAID ADVANTAGE Care Teams Modeling Agent Relationship Specialty Start Date End Date Alan Rojas DO [address] [place] [phone] PCP - General Family Medicine 05/23/24
[2024-07-04 10:00] VITALS: BP 123/77; PULSE 75; RESP 16; TEMP 36.8; O2SAT 99
[2024-07-04] MEDS: Lidocaine 4 % Patch ADH..PATCH 1 PATCH TRANSDERMA (10:18)
[2024-07-04] MEDS: Cyclobenzaprine HCl 10 MG TABLET PO (10:18)
[2024-07-04] MEDS: Ketorolac Tromethamine 30 MG/ML VIAL IM (10:19)
--- NOTE | 2024-07-04 10:32 | ED_ITS ---
HPI - General Adult General Chief complaint: General Medical Stated complaint: rib pain Time Seen by Provider: 07/04/24 09:46 Source: patient, RN notes reviewed and old records reviewed Mode of arrival: ambulatory History of Present Illness ED Provider: Anna Underwood PA-C HPI narrative: 49-year-old female with a past medical history anxiety, depression, migraines, arthritis, presenting to the ED complaining left-sided posterior lateral rib pain s/p lifting mother last night. States it is her mother's [employer]. Denies direct injury, trauma, fall. Reports recently evaluated in our ED for similar sx, pain improved with Oxycodone however feels she re-exacerbated symptoms. Reports pain worse with movement & breathing. Denies fever, chills, cough, abdominal pain, nausea/ vomiting, dysuria /hematuria Related Data Home Medications ?Medication ?Instructions ?Recorded ?Confirmed iron, carbonyl 15 mg chewable 15 mg PO DAILY 01/28/20 06/09/24 tablet (Iron Chews) capsaicin 0.025 % topical cream 1 appl topical BID 02/27/21 06/09/24 diclofenac sodium 1 % topical gel g topical 02/27/21 06/09/24 quetiapine 100 mg tablet 100 mg PO BEDTIME 02/27/21 06/09/24 sertraline 100 mg tablet 100 mg PO DAILY 02/27/21 06/09/24 mupirocin 2 % topical ointment topical DAILY 03/20/21 06/09/24 dicyclomine 20 mg tablet 20 mg PO BID PRN 06/20/21 06/09/24 Previous Rx's ?Medication ?Instructions ?Recorded lddtjnzk-mtazkmcg-xvve 45 mg-folic 1 cap PO .daily in evening #90 caps 08/02/22 acid 800 mcg-vit K 120 mcg capsule (Bariatric Multivitamins) calcium 315 mg (as 1 tab PO BID #90 tabs 03/17/24 citrate)-vitamin D3 5 mcg (200 unit) tablet fluconazole 200 mg tablet 200 mg PO .weekly #4 tabs 05/12/24 clotrimazole 1 % topical cream 1 appl topical BID #45 grams 06/02/24 sucralfate 100 mg/mL oral 10 ml PO BID #420 mL 06/02/24 suspension (Carafate) multivitamin with minerals-folic 1 tab PO DAILY #90 tabs 06/09/24 acid 200 mcg chewable tablet (Womens Daily Gummies) lidocaine 5 % topical patch 1 patch topical DAILY #15 ea 06/27/24 oxycodone 5 mg capsule 5 mg PO Q8H PRN severe pain (scale 06/27/24 score 7-10) #6 caps acetaminophen 500 mg tablet 500 mg PO Q6H PRN fever or pain 07/04/24 (Tylenol Extra Strength) #14 tabs cyclobenzaprine 5 mg tablet 5 mg PO Q8H PRN pain (scale score 07/04/24 7-10) 5 days #14 tabs lidocaine 5 % topical patch 1 patch topical DAILY PRN pain #30 07/04/24 (Lidoderm) ea naproxen 500 mg tablet 500 mg PO BID PRN pain 10 days #20 07/04/24 tabs Allergies Allergy/AdvReac Type Severity Reaction Status Date / Time No Known Allergies Allergy Verified 07/04/24 09:38 Review of Systems Review of Systems: Yes all other systems are reviewed and are negative Constitutional: Constitutional: Reports as per [facility] Past Medical History Attestation statement: The following information was validated with the patient. Source: old records reviewed Medical History Overweight Preop testing Chest pain Frequent UTI Intestinal malabsorption following gastrectomy Hiatal hernia Shortness of breath Vitamin B1 deficiency Vitamin D deficiency Preoperative examination Body mass index (BMI) of 40.1 to 44.9 in adult Morbid obesity due to excess calories Scoliosis Migraines Insomnia KENISHA I (cervical intraepithelial neoplasia I) Binge eating disorder Ovarian cyst Anxiety Depression Back pain Arthritis Surgical History S/P laparoscopic sleeve gastrectomy History of repair of hiatal hernia History of arthroscopy of both knees History of cervical LEEP biopsy affecting care of mother, antepartum Hx of tubal ligation Hx of breast reduction, elective Family History Family History Father Colon cancer Mother No problems noted. Brother Obesity Brother Obesity Son No problems noted. Daughter No problems noted. Daughter No problems noted. Social History Social History Household Members: Family Housing: Apartment Are you a primary hourly caregiver to a significant other at home: No Do you presently have visiting nurse or other home services: No 75 years or older and lives alone: No Unable to assess alcohol history related to: Unknown Alcohol intake: current Alcohol intake frequency: holidays/special occasions only Patient Tobacco Use Status: Current everyday Tobacco user Tobacco use type: Cigarette Cigarettes Per Day: 6 Substance Use Type: Marijuana service: No Current occupational status: employed Current occupation: [employer] CON[employer]ER [employer] Physical Exam ED Vital Signs: Vital Signs - 24 hr 07/04/24 09:36 07/04/24 10:00 07/04/24 12:00 Temperature 97.3 F 98.3 F 97.8 F Pulse Rate 81 75 61 Respiratory Rate 18 16 16 Blood Pressure 121/74 123/77 135/68 Pulse Oximetry 100 99 98 Oxygen Delivery Method Room Air Room Air Room Air 07/04/24 15:26 Temperature 97.8 F Pulse Rate 61 Respiratory Rate 16 Blood Pressure 135/68 Pulse Oximetry 98 Oxygen Delivery Method Room Air BMI result Body Mass Index 25.8 Const General: cooperative, healthy appearing and no acute distress Orientation/consciousness: patient oriented x3 Limitations: no limitations HENMT Head: Yes normal to inspection and Yes atraumatic Ears: hearing grossly normal bilaterally General nose exam: Normal external nose present Face and sinus: Yes normal facial exam Eyes General: appearance normal, both eyes and all related structures EOM: EOMs intact bilaterally Neck Neck: Yes normal visual inspection and Yes no meningeal signs Chest Other: + left posterior lateral reproducible rib tenderness. No deformity / erythema / ecchymosis. No flail chest. No rash. Chest palpation & inspection: normal inspection of the chest and no crepitus Resp Effort & Inspection: normal respiratory effort and no respiratory distress Auscultation: clear to auscultation bilaterally, no crackles and no wheezes Cardio Rate: regular rate Heart sounds: S1 normal heart sound present and S2 normal heart sound present GI Inspection: Yes normal to inspection Palpation (GI): Soft to palpation, nontender, no guarding and not rigid General: Yes no CVA tenderness Back/Spine/Pelvis Other: No midline cervical/thoracic/lumbar spinous tenderness/step-off or deformity Back: no CVA tenderness Skin Rashes: no rashes Wounds: no wounds Neuro General: patient oriented x3, tone normal and no meningeal signs Cranial nerves: Yes CN's II-XII intact bilaterally Gait exam (Neuro): Normal gait present Extrem General: Yes normal to inspection Course Course Course Narrative: 1134--XR ribs LT min 3V w CXR1V IMPRESSION: No acute findings. > on re-evaluation patient is sleeping comfortably. Will wait for her to wake up a little more prior to discharge Results discussed with patient including worrisome signs and symptoms and strict return precautions, and when to return to the emergency department. They verbalized understanding and feel safe for discharge at this time. Medications Administered Discontinued Medications Generic Name Dose Route Start Last Admin Trade Name Freq PRN Reason Stop Dose Admin Cyclobenzaprine HCl 10 mg 07/04/24 10:10 07/04/24 10:18 Cyclobenzaprine Hcl 10 Mg Tablet PO 07/04/24 10:11 10 mg ONCE ONE Administration Ketorolac Tromethamine 30 mg 07/04/24 10:09 07/04/24 10:19 Ketorolac Tromethamine 30 Mg/Ml Vial IM 07/04/24 10:10 30 mg ONCE ONE Administration Lidocaine 1 patch 07/04/24 10:09 07/04/24 10:18 Lidocaine 4 % Patch Adh..Patch TRANSDERMA 07/04/24 10:10 1 patch ONCE ONE Administration Protocol Medical Decision Making Medical Decision Making MDM Narrative: 49-year-old female with a past medical history anxiety, depression, migraines, arthritis, presenting to the ED complaining left-sided posterior lateral rib pain s/p lifting mother last night. On exam vital signs stable, NAD, nontoxic appearing, physical exam as noted above with reproducible left posterior lateral rib tenderness. No evidence of flail chest. No rash. Abdomen is soft and nontender. Concern for rib fracture vs contusion vs costochondritis. Low suspicion for ACS /PE. Lower suspicion for pyelo / renal stone or intra- abdominal pathology including bleeding injury Plan: Rib x-ray, pain control Please refer to course for remaining clinical decision making, interpretation of labs/imaging results, and discussions with consultants and/or family members. Differential Diagnosis Differential Diagnoses: The differential diagnosis associated with the presentation includes As above Independent Interpretation I performed an independent interpretation of an: Plain X-Ray Radiology Impression Discussion of test interpretation with radiology: I have reviewed the radiologist's reading. External Record Review External record reviewed: Inpatient record, Office record, Outpatient record, Prior outpatient labs, Prior outpatient radiology, Primary care record and Outside ED record Tests considered The following testing was considered but not selected: As above Prescription Management I considered prescription management with: Pain Medication Chronic Conditions Patient?s care impacted by: Other Social Determinants Patient?s care significantly limited by Social Determinants of Health including: Other Social Determinant of Health Discharge Plan Discharge Clinical Impression: Rib pain on left side Patient Disposition: Home, Self-Care Instructions: Rib Contusion (ED) Additional Instructions: Your pain is likely musculoskeletal. Your x-rays unremarkable Flexeril is a muscle relaxer, take at night as it makes you drowsy, do not drive , drink alcohol, or operate machinery while taking it Naproxen as an anti-inflammatory / pain medication, take with food Lidoderm patches are numbing patches, apply to painful area In addition take Tylenol at home If symptoms persist or worsen, pain becomes unbearable, you developed urinary retention or incontinence, or weakness return to the ED Prescriptions: New acetaminophen [Tylenol Extra Strength] 500 mg tablet 500 mg PO Q6H PRN (Reason: fever or pain) Qty: 14 0RF lidocaine [Lidoderm] 5 % adhesive patch,medicated 1 patch topical DAILY MDD remove after 12 hours PRN (Reason: pain) Qty: 30 0RF Rx Instructions: leave on most painful area for up to 12 hrs naproxen 500 mg tablet 500 mg PO BID PRN (Reason: pain) 10 Days Qty: 20 0RF cyclobenzaprine 5 mg tablet 5 mg PO Q8H PRN (Reason: pain (scale score 7-10)) 5 Days Qty: 14 0RF No Action clotrimazole 1 % cream 1 appl topical BID Qty: 45 3RF sucralfate [Carafate] 100 mg/mL suspension 10 ml PO BID Qty: 420 3RF lidocaine 5 % adhesive patch,medicated 1 patch topical DAILY Qty: 15 0RF Rx Instructions: leave on most painful area for up to 12 hrs oxycodone 5 mg capsule 5 mg PO Q8H PRN (Reason: severe pain (scale score 7-10)) Qty: 6 0RF Rx Instructions: Partial Fill upon patient request. Iron Chews 15 mg tablet,chewable 15 mg PO DAILY diclofenac sodium 1 % gel topical quetiapine 100 mg tablet 100 mg PO BEDTIME capsaicin 0.025 % cream 1 appl topical BID sertraline 100 mg tablet 100 mg PO DAILY mupirocin 2 % ointment topical DAILY dicyclomine 20 mg tablet 20 mg PO BID PRN Bariatric Multivitamins 45 mg iron- 800 mcg-120 mcg capsule 1 cap PO .daily in evening Qty: 90 3RF calcium citrate-vitamin D3 315 mg-5 mcg (200 unit) tablet 1 tab PO BID Qty: 90 5RF fluconazole 200 mg tablet 200 mg PO .weekly Qty: 4 0RF multivit with min-folic acid [Womens Daily Gummies] 200 mcg tablet,chewable 1 tab PO DAILY Qty: 90 3RF Referrals: Alan Rojas DO [Primary Care Provider] - 1 week Interventions: ED Discharge Assessment Last Done: 07/04/24 15:26 Discharge Date/Time: 07/04/24 13:18 Print Language: Macedonian
--- NOTE | 2024-07-04 11:00 | PC.NURSE ---
PT sleeping in room comfortably.
[2024-07-04 12:00] VITALS: BP 135/68; PULSE 61; RESP 16; TEMP 36.6; O2SAT 98
--- NOTE | 2024-07-04 12:59 | PC.NURSE ---
PT awake stated she is ready to go, pt stated she fell asleep because she hasn't slept in three days due the pain, This nurse told the patient that the medication given to her previously by another nurse can make pt's drowsy/tired.
--- NOTE | 2024-07-04 13:10 | PC.NURSE ---
While going over DC instructions, pt told this nurse I'm not going anywhere until the provider gives me something stronger it's her job pt complains shes's in a lot of pain and says it's her job to give me something stronger until i see my primary next week if not I'm going [facility]! This nurse told PT she would speak tothe provider about her concerns of pain meds.
--- NOTE | 2024-07-04 13:11 | PC.NURSE ---
Provider notified said she will not prescribe anything else other than the prescriptions of Tylenol, Cyclobenzaprine, and lidocaine patches given. This Nurse told the patient that the provider would not send anything stronger, but went over teaching for Cyclobenzaprine due to the provider saying the pain is musculoskeletal. PT stated I'm not leaving until i get something stronger you will have to call security to get me out of here. Patient was willing to leave without security a few moments after and said I'm going [facility] I'm going to end up coming back here because I'm going to of the pain, and I will [facility]!
--- NOTE | 2024-07-04 13:12 | PC.NURSE ---
PT unwilling to sign DC instructions said she will not sign it because she didn't get stronger meds pt also stated If I don't sign the paper I can [facility]! after gathering her things PT was willing to sign paperwork.
[2024-07-04 15:26] VITALS: BP 135/68; PULSE 61; RESP 16; TEMP 36.6; O2SAT 98
== END 2024-07-04 13:18 | disposition home or self-care (01) ==
PROVIDERS: Emergency Provider Emergency Medicine; PCP Family Medicine
DX: R07.81 Pleurodynia (principal)
CPT/HCPCS: 71101; 96372; 99284; J1885

== ENCOUNTER → 2024-07-04 10:00 | Outpatient (BNV) | payer OTHER, SELFPAY | PROVIDERS: Emergency Provider Emergency Medicine; PCP Family Medicine; Visit Provider Radiology Diagnostic Radiology | DX: R07.81 Pleurodynia (principal) | CPT/HCPCS: 71101 ==

== ENCOUNTER 2024-07-09 09:55 | Emergency (ER) | payer OTHER, SELFPAY ==
--- NOTE | ~2024-07-09 | XR_ITS ---
EXAMINATION: XR CHEST CLINICAL INFORMATION: sob COMPARISON: None available. TECHNIQUE: 2 views of the chest were obtained. FINDINGS: The cardiac, hilar, and mediastinal contours are normal. The lungs are mildly hyperaerated, however clear bilaterally. There is no pneumothorax or pleural effusion. There is no focal osseous or soft tissue abnormality. XR/XR chest 2V IMPRESSION: No active pulmonary disease. Electronically signed by: Scot Schmidt MD 07/09/2024 10:31 AM EDT
--- NOTE | 2024-07-09 09:56 | ECG_ITS ---
Test Reason : chest pain Blood Pressure : */* mmHG Vent. Rate : 76 BPM Atrial Rate : 76 BPM P-R Int : 110 ms QRS Dur : 70 ms QT Int : 374 ms P-R-T Axes : 46 52 34 degrees QTcB Int : 420 ms Sinus rhythm with short [place] Otherwise normal ECG When compared with ECG of 01-Feb-2022 17:48, Fusion complexes are no longer Present Vent. rate has decreased by 44 bpm Referred By: Generic ED Physician Electronically Signed By: KRISTIE DALY MD
[2024-07-09 10:02] VITALS: BP 105/6; PULSE 75; RESP 18; TEMP 36.5; O2SAT 100; BMI 27.5
[2024-07-09 10:30] VITALS: BP 113/76; PULSE 80; RESP 14; TEMP 36.6; O2SAT 100
--- OUTSIDE RECORDS SUMMARY | 2024-07-09 10:34 | XMS_ITS | Clinical Summary ---
Author Organization [facility] Address [address] [place] [address] Phone Care Team Providers Care Business Systems Analyst Name Role Phone Alan Rojas Primary Care Provider [phone] Allergies No known active allergies Encounters Date Type Department Care Team Description 05/23/2024 10:27 PM EDT - 05/24/2024 1:34 AM EDT [facility] Emergency [address] [place] [address] Migraine without aura and without status migrainosus, not intractable (Primary Dx) Discharge Disposition: Home or Self Care from Last 3 Months Surgical History Surgery Date Site/Laterality Comments KNEE SURGERY PROCEDURE: HISTORICAL KNEE SURGERY; COMMENT: arthoscopic x 2, bilateral TUBAL LIGATION 2002 PROCEDURE: HISTORICAL TUBAL LIGATION; COMMENT: record in EMR BREAST SURGERY PROCEDURE: [facility] UNLISTED PROCEDURE BREAST; COMMENT: bilateral reduction CERVICAL BIOPSY W/ LOOP ELECTRODE EXCISION 2004 PROCEDURE: [facility] CONIZATION CERVIX W/WO D&C RPR ELTRD EXC; COMMENT: KENISHA 3, Dr. Dani Dumont in [place] Medical History Medical History Date Comments Tobacco abuse disorder 01/05/2013 DX:Tobacc o abuse disorder Severe cervical dysplasia, histologically confirmed 10/31/2004 DX:Severe cervical dysplasia , histologically confirmed; COMMENT: LEEP in [place], Pap smears normal 2005 & 2006 Pap [...] patient's age to complete this topic Insurance [facility] MEDICAID ADVANTAGE Care Teams Business Systems Analyst Relationship Specialty Start Date End Date Alan Rojas DO [address] [place] [id number] PCP - General Family Medicine 05/23/24
[2024-07-09 10:47] LABS: Hematocrit 35.6 % (37.0-47.0); Hemoglobin 11.6 g/dl (12.0-16.0); Mean Corpuscular HGB Conc 32.6 g/dl (31.0-35.0); Mean Corpuscular Hemoglobin 27.2 pg (27.0-33.0); Mean Corpuscular Volume 83.6 fL (80.0-98.0); Platelet Count 249 X10*3/uL (160-400); Red Blood Count 4.26 X10*6/uL (4.20-5.50); Red Cell Distribution Width 15.1 % (11.0-16.0); White Blood Count 4.3 X10*3/uL (4.8-10.8)
[2024-07-09 11:00] LABS: Anion Gap 10 (12-20); Blood Urea Nitrogen 18 mg/dL (9-16); Calcium 9.2 mg/dL (8.4-10.2); Carbon Dioxide 31 mmol/L (22-29); Chloride 106 mmol/L (96-108); Creatinine Clr Calc Pharmacy 115.8; Estimated Glomerular Filt Rate > 60; Glucose Random 62 mg/dL (60-115); Potassium 4.1 mmol/L (3.3-5.1); Sodium 143 mmol/L (135-145)
[2024-07-09 11:06] LABS: Troponin-I High Sensitivity < 2.7 ng/L (<3.5-17.0)
--- NOTE | 2024-07-09 11:42 | ED.CHESTPAIN ---
HPI - Chest Pain General Chief Complaint: Chest Pain Stated Complaint: chest pain Time Seen by Provider: 07/09/24 10:23 History of Present Illness HPI narrative: Patient is a 49-year-old female presents today with having chest pain. Of chest pain is over the left rib area. Patient claims the pain radiates to the left upper chest area. Patient is had the pain since recent rib injury. Was seen here recently. Had x-rays done that were negative. Patient claims the pain is worse with specific movement. There is no fever no chills. Positive history of smoking. Positive history of gastric bypass. No diabetes, hypertension, high cholesterol, positive smoking. No travel history no history of blood clots. Not on hormone replacement. Patient from home. No history of cancer. Related Data Home Medications ?Medication ?Instructions ?Recorded ?Confirmed iron, carbonyl 15 mg chewable 15 mg PO DAILY 01/28/20 06/09/24 tablet (Iron Chews) capsaicin 0.025 % topical cream 1 appl topical BID 02/27/21 06/09/24 diclofenac sodium 1 % topical gel g topical 02/27/21 06/09/24 quetiapine 100 mg tablet 100 mg PO BEDTIME 02/27/21 06/09/24 sertraline 100 mg tablet 100 mg PO DAILY 02/27/21 06/09/24 mupirocin 2 % topical ointment topical DAILY 03/20/21 06/09/24 dicyclomine 20 mg tablet 20 mg PO BID PRN 06/20/21 06/09/24 Previous Rx's ?Medication ?Instructions ?Recorded gjrmencl-krbqoohe-thab 45 mg-folic 1 cap PO .daily in evening #90 caps 08/02/22 acid 800 mcg-vit K 120 mcg capsule (Bariatric Multivitamins) fluconazole 200 mg tablet 200 mg PO .weekly #4 tabs 05/12/24 clotrimazole 1 % topical cream 1 appl topical BID #45 grams 06/02/24 sucralfate 100 mg/mL oral 10 ml PO BID #420 mL 06/02/24 suspension (Carafate) multivitamin with minerals-folic 1 tab PO DAILY #90 tabs 06/09/24 acid 200 mcg chewable tablet (Womens Daily Gummies) lidocaine 5 % topical patch 1 patch topical DAILY #15 ea 06/27/24 oxycodone 5 mg capsule 5 mg PO Q8H PRN severe pain (scale 06/27/24 score 7-10) #6 caps acetaminophen 500 mg tablet 500 mg PO Q6H PRN fever or pain 07/04/24 (Tylenol Extra Strength) #14 tabs cyclobenzaprine 5 mg tablet 5 mg PO Q8H PRN pain (scale score 07/04/24 7-10) 5 days #14 tabs lidocaine 5 % topical patch 1 patch topical DAILY PRN pain #30 07/04/24 (Lidoderm) ea naproxen 500 mg tablet 500 mg PO BID PRN pain 10 days #20 07/04/24 tabs calcium 600 mg (as 1 cap PO DAILY #90 caps 07/07/24 carbonate)-vitamin D3 10 mcg (400 unit) capsule Allergies Allergy/AdvReac Type Severity Reaction Status Date / Time No Known Allergies Allergy Verified 07/09/24 10:11 Review of Systems Review of Systems: Positive left-sided chest pain Yes all other systems are reviewed and are negative PMFSH Past Medical History Attestation statement: The following information was validated with the patient. Medical History Overweight Preop testing Chest pain Frequent UTI Intestinal malabsorption following gastrectomy Hiatal hernia Shortness of breath Vitamin B1 deficiency Vitamin D deficiency Preoperative examination Body mass index (BMI) of 40.1 to 44.9 in adult Morbid obesity due to excess calories Scoliosis Migraines Insomnia KENISHA I (cervical intraepithelial neoplasia I) Binge eating disorder Ovarian cyst Anxiety Depression Back pain Arthritis Surgical History S/P laparoscopic sleeve gastrectomy History of repair of hiatal hernia History of arthroscopy of both knees History of cervical LEEP biopsy affecting care of mother, antepartum Hx of tubal ligation Hx of breast reduction, elective Family History Family History Father Colon cancer Mother No problems noted. Brother Obesity Brother Obesity Son No problems noted. Daughter No problems noted. Daughter No problems noted. Social History Social History Household Members: Family Housing: Apartment Are you a primary inspector health care facilities to a significant other at home: No Do you presently have visiting nurse or other home services: No Unable to assess alcohol history related to: Unknown Alcohol intake: current Alcohol intake frequency: holidays/special occasions only Patient Tobacco Use Status: Current everyday Tobacco user Tobacco use type: Cigarette Cigarettes Per Day: 6 Substance Use Type: Marijuana Advance Directives: No Advance Directives Information Provided: Yes service: No Current occupational status: employed 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 Oriented X3. No acute distress. Eyes: Pupils equal, round and reactive to light. ENT: Pharynx normal. Neck: Normal inspection. Neck supple. No lymph nodes noted. No crepitus CVS: Normal heart rate and rhythm. Pulses normal. Normal S1 and S2 Respiratory: No respiratory distress. Breath sounds normal. No Wheezing. No rales Abdomen: Soft and nontender. No rigidity. No distention. good BS x4 Skin: Skin warm and dry. Normal skin color. Normal skin turgor. Extremities: No lower extremity edema. Neurovascular intact to all extremities. No Lacerations. No Rash Neuro: Oriented X 3. No motor deficit. No sensory deficit. Moving all extermities. No slurred speech Medical Decision Making Medical Decision Making MDM Narrative: My interpretation patient's EKG showed a sinus rhythm heart rate is 80 ID QRS QTC normal no acute ST segment elevation my interpretation patient's chest x-ray was negative no pneumonia no pneumothorax. No gross rib fracture appreciated. Patient's pain is atypical for ACS. First sets of enzymes were negative. Will get a 2nd set of enzymes. Patient's electrolytes unremarkable. No history of diabetes, hypertension, high cholesterol positive history smoking no history of RI. EKG is normal troponins normal patient is heart score is less than 3. Two sets of enzymes are negative. Patient's chest x-ray showed no pneumonia. No pneumothorax. Patient is low risk for DVT/PE. D-dimer is negative unlikely secondary to have PE. Will discharge patient home. Heart score is less than 3. Will have patient follow-up outpatient. Differential Diagnosis Differential Diagnoses: The differential diagnosis associated with the presentation includes ACS, pneumonia, pneumothorax, rib fracture Admission/Observation Consideration of admission/observation: Escalation of care including admission/observation considered Lab Data MDM Lab Attestation statement: I reviewed the patient's lab results. 07/09/24 10:39 07/09/24 10:39 Labs: Lab Results 07/09/24 07/09/24 Range/Units 10:39 12:01 WBC 4.3 L (4.8-10.8) X10*3/uL RBC 4.26 (4.20-5.50) X10*6/uL Hgb 11.6 L (12.0-16.0) g/dl Hct 35.6 L (37.0-47.0) % MCV 83.6 (80.0-98.0) fL MCH 27.2 (27.0-33.0) pg MCHC 32.6 (31.0-35.0) g/dl RDW 15.1 (11.0-16.0) % Plt Count 249 (160-400) X10*3/uL MPV 10.0 (9.4-12.3) fL Absolute Nucleated RBC 0.000 (0.0-0.012) X10*3/uL Nucleated RBC % (auto) 0.0 (0.0-0.2) /100WBC D-Dimer High Sensitivty < 150 NG/ML Sodium 143 (135-145) mmol/L Potassium 4.1 (3.3-5.1) mmol/L Chloride 106 (96-108) mmol/L Carbon Dioxide 31 H (22-29) mmol/L Anion Gap 10 L (12-20) BUN 18 H (9-16) mg/dL Creatinine 0.72 (0.5-1.4) mg/dL Estim Creat Clear Calc 115.8 Estimated GFR > 60 Random Glucose 62 (60-115) mg/dL Calcium 9.2 (8.4-10.2) mg/dL Troponin I High Sens < 2.7 < 2.7 (<3.5-17.0) ng/L Independent Interpretation I performed an independent interpretation of an: EKG (See above) and Plain X-Ray (Chest x-ray negative for pneumonia pneumothorax) Radiology Impression Discussion of test interpretation with radiology: I have reviewed the radiologist's reading. External Record Review External record reviewed: Prior outpatient labs Social Determinants Patient?s care significantly limited by Social Determinants of Health including: Problems related to primary support group Discharge Plan Discharge Clinical Impression: Chest pain Patient Disposition: Home, Self-Care Instructions: Chest Pain (ED) Prescriptions: No Action clotrimazole 1 % cream 1 appl topical BID Qty: 45 3RF sucralfate [Carafate] 100 mg/mL suspension 10 ml PO BID Qty: 420 3RF calcium carbonate-vitamin D3 600 mg-10 mcg (400 unit) capsule 1 cap PO DAILY Qty: 90 3RF lidocaine 5 % adhesive patch,medicated 1 patch topical DAILY Qty: 15 0RF Rx Instructions: leave on most painful area for up to 12 hrs oxycodone 5 mg capsule 5 mg PO Q8H PRN (Reason: severe pain (scale score 7-10)) Qty: 6 0RF Rx Instructions: Partial Fill upon patient request. acetaminophen [Tylenol Extra Strength] 500 mg tablet 500 mg PO Q6H PRN (Reason: fever or pain) Qty: 14 0RF lidocaine [Lidoderm] 5 % adhesive patch,medicated 1 patch topical DAILY MDD remove after 12 hours PRN (Reason: pain) Qty: 30 0RF Rx Instructions: leave on most painful area for up to 12 hrs naproxen 500 mg tablet 500 mg PO BID PRN (Reason: pain) 10 Days Qty: 20 0RF cyclobenzaprine 5 mg tablet 5 mg PO Q8H PRN (Reason: pain (scale score 7-10)) 5 Days Qty: 14 0RF Iron Chews 15 mg tablet,chewable 15 mg PO DAILY diclofenac sodium 1 % gel topical quetiapine 100 mg tablet 100 mg PO BEDTIME capsaicin 0.025 % cream 1 appl topical BID sertraline 100 mg tablet 100 mg PO DAILY mupirocin 2 % ointment topical DAILY dicyclomine 20 mg tablet 20 mg PO BID PRN Bariatric Multivitamins 45 mg iron- 800 mcg-120 mcg capsule 1 cap PO .daily in evening Qty: 90 3RF fluconazole 200 mg tablet 200 mg PO .weekly Qty: 4 0RF multivit with min-folic acid [Womens Daily Gummies] 200 mcg tablet,chewable 1 tab PO DAILY Qty: 90 3RF Referrals: Alan Rojas DO [Primary Care Provider] - 07/13/24 Print Language: Romanian
[2024-07-09 12:19] LABS: D Dimer High Sensitivity < 150 NG/ML
[2024-07-09 12:40] LABS: Troponin-I High Sensitivity < 2.7 ng/L (<3.5-17.0)
[2024-07-09 14:29] VITALS: BP 119/74; PULSE 72; RESP 19; TEMP 36.6; O2SAT 98
== END 2024-07-09 14:55 | disposition home or self-care (01) ==
PROVIDERS: Emergency Provider Emergency Medicine Emergency Medical Services; PCP Family Medicine
DX: R07.89 Other chest pain (principal); Z98.84 Bariatric surgery status; Z79.899 Other long term (current) drug therapy; F17.210 Nicotine dependence, cigarettes, uncomplicated
CPT/HCPCS: 36415; 71046; 80048; 84484; 85027; 85379; 93005; 99284

== ENCOUNTER → 2024-07-09 09:56 | Outpatient (BNV) | payer OTHER, SELFPAY | PROVIDERS: Emergency Provider Emergency Medicine Emergency Medical Services; PCP Family Medicine; Visit Provider Internal Medicine Cardiovascular Disease | DX: R07.9 Chest pain, unspecified (principal) | CPT/HCPCS: 93010 ==

== ENCOUNTER → 2024-07-09 10:12 | Outpatient (BNV) | payer OTHER, SELFPAY | PROVIDERS: Emergency Provider Emergency Medicine Emergency Medical Services; PCP Family Medicine; Visit Provider Radiology Diagnostic Radiology | DX: R06.02 Shortness of breath (principal) | CPT/HCPCS: 71046 ==